=== PATIENT | female | born 1980 | race Caucasian/White ===

== ENCOUNTER 2023-05-16 06:25 | Day surgery (SDC) | payer OTHER, SELFPAY ==
[2023-05-10 14:33] VITALS: BMI 17.1
--- NOTE | 2023-05-13 07:51 | MHC.SHP ---
Pre-Procedural Eval Section A Date of Service: 05/13/23 The patient is an INPATIENT: No Changes since office visit: No Cold of Flu in the past 2 weeks, No New Medical Problems, No Changes in Medication and No Patient answered all questions The History & Physical has been completed within 30 days and I have reviewed it.: Yes Section B Chief Complaint: Age-related nuclear cataract, right eye Allergies: Allergies Allergy/AdvReac Type Severity Reaction Status Date / Time codeine [CODEINE] Allergy Intermediate Nausea and Unverified 05/10/23 14:31 Vomiting erythromycin base Allergy Intermediate Nausea and Unverified 05/10/23 14:31 [ERYTHROMYCIN BASE] Vomiting ibuprofen [From MOTRIN] Allergy Intermediate nausea and Unverified 05/10/23 14:31 vomiting, hives Plan Diagnosis/Plan: Unchanged I have reviewed the history and physical and performed a pertinent physical examination on my patient. No changes have occurred unless specified. Time Spent With Patient Time: Total time managing care of this patient today ____ minutes.
[2023-05-16] VITALS (8 sets, daily range): BP systolic 84–92; BP diastolic 32–57; PULSE 70–88; RESP 12–18; TEMP 36.7–36.9; O2SAT 96–100
[2023-05-16 06:58] LABS: UPreg QC Valid YES; Urine Pregnancy NEGATIVE (NEGATIVE)
[2023-05-16] MEDS: Tetracaine HCl/PF 0.5% Oph Sol 4 ML DROPS 1 DROP EYE-RIGHT (06:58)
[2023-05-16] MEDS: Cyclopentolate 1 % Ophth Sol 2 ML DRPBTL 1 DROP EYE-RIGHT ×3 (06:59→07:09)
[2023-05-16] MEDS: Phenylephrine HCL 2.5% Oph SoL 2 ML BOTTLE 1 DROP EYE-RIGHT ×3 (06:59→07:09)
[2023-05-16] MEDS: Tropicamide 1 % Ophth Sol 3 ML BTL 1 DROP EYE-RIGHT ×3 (06:59→07:09)
[2023-05-16] MEDS: Ketorolac Tromethamine 0.5% Op 5 ML DROPS 1 DROP EYE-RIGHT ×3 (06:59→07:09)
[2023-05-16] MEDS: Lactated Ringers 500 ML 50 ML IV (07:25)
--- NOTE | 2023-05-16 07:32 | P.CONAN_ITS ---
HPI - Anesthesia Eval Consult details Narrative: 43 yo female patient for Right cataract extraction, IOL insertion [facility] Past Medical History Medical History Asthma Cataract Dyskinesia Dystonia Hearing loss IBS (irritable bowel syndrome) Nondiabetic gastroparesis Parkinson disease Underweight Walker as ambulation aid Family History Family history of problems with anesthesia: No Surgical History Surgical History History of Hx of cholecystectomy History of Problems with Anesthesia: Yes ( Does not wake up well but could not elaborate) Social History Social History Are you a primary healthcare account manager to a significant other at home: No Do you presently have visiting nurse or other home services: 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 If so, by whom?: No Are you DNR?: No Advance Directives: No Advance Directives Information Provided: Yes Advance Directives on File: No Patient : No FDLMP: April 2023 : No Poor oral hygiene: No Meds Allergies Allergy/AdvReac Type Severity Reaction Status Date / Time codeine [CODEINE] Allergy Intermediate Nausea and Unverified 05/10/23 14:31 Vomiting erythromycin base Allergy Intermediate Nausea and Unverified 05/10/23 14:31 [ERYTHROMYCIN BASE] Vomiting ibuprofen [From MOTRIN] Allergy Intermediate nausea and Unverified 05/10/23 14:31 vomiting, hives Active Medications: Current Medications Albuterol Sulfate (Albuterol Sulfate (0.083%) 2.5 Mg/3 Ml Vial.Neb) 2.5 mg INHALE ONCE PRN PRN Reason: Shortness of Breath/Wheezing Lactated Ringer's (Lr) 500 mls @ 50 mls/hr IV .Q10H MORE Stop: 05/16/23 16:44 Last Admin: 05/16/23 07:25 Dose: 50 mls/hr Povidone Iodine (Povidone Iodine 5 % Ophth Soln 30 Ml Bottle) 1 appl EYE-RIGHT PREOP PRN PRN Reason: Pre-Op Surgical Implant Prophy Home Medications Medication Instructions Recorded Confirmed Last Taken Type albuterol sulfate 90 mcg/actuation 2 puff inhalation QID PRN 05/09/23 05/09/23 Unknown History aerosol inhaler (Ventolin HFA) Shortness Of Breath Or Wheezing carbidopa 25 mg-levodopa 100 mg 1 tab PO TID 05/09/23 05/09/23 Unknown History tablet carbidopa ER 25 mg-levodopa 100 mg 1 tab PO DAILY 05/09/23 05/09/23 Unknown Hist ory tablet,extended release cholecalciferol (vitamin D3) 1,250 1,250 mcg PO QWEEK 05/09/23 05/09/23 Unknown History mcg (50,000 unit) capsule fluticasone propionate 220 2 puff inhalation BID 05/09/23 05/09/23 Unknown History mcg/actuation HFA aerosol inhaler (Flovent HFA) polyethylene glycol 3350 17 gram 17 g PO DAILY 05/10/23 05/10/23 Unknown History oral powder packet (Miralax) Exam Exam Date and Time: May 16, 2023 0732 Height,Weight and Vital Signs: Height 4 ft 10 in Weight 37.195 kg Last Vital Signs Temp 98.1 F 05/16/23 07:11 Pulse 73 05/16/23 07:11 Resp 18 05/16/23 07:11 BP 91/57 L 05/16/23 07:11 Pulse Ox 98 05/16/23 07:11 O2 Del Method Room Air 05/16/23 07:11 Pertinent Lab Results Pertinent Lab Results: Laboratory Tests 05/16/23 06:30 Urine Test NEGATIVE Airway Mallampati Class: II TM Dist: >3cm Neck ROM: Full Loose/Missing/Broken Teeth: No (Denies broken, loose, missing teeth) Heart: RRR Lungs: CTAB. Distant Assessment and Plan Assessment Anesthesia Assessment: Anesthesia Plan Discussed and Chart Reviewed Final Anesthetic Review Family History of Problems with Anesthesia: No History of Problems with Anesthesia: Yes ( Does not wake up well but could not elaborate) NPO: Yes ASA Class: III Final Preanesthetic Review: No Changes in Pt Med Stat, Meds/Allgs Chart Reviewed, Consent Obtained/Reviewed and Anes Risks/Benef Reviewed Patient Risk: Intermediate Procedure Risk: Low Assessment/Block/Sedation in SS: Assess/Block/Sedation-SS Anesthetic Plan Anesthetic Plan: GA Disposition: Standard PACU
--- NOTE | 2023-05-16 08:02 | HO.PNOPHT ---
Ophthalmology Procedure Procedure Date of Service: 05/16/23 Ophthalmology Viscoelastic: Healon Duet Dual Pack Pro Ophthalmology Lenses: TECNIS [id number] (20.5) Procedure Notes: PREOPERATIVE DIAGNOSIS: Decreased visual acuity right eye secondary to cataract POSTOPERATIVE DIAGNOSIS: Same PROCEDURE: Right cataract extraction with intraocular lens insertion SURGEON: Shreyas Barnes M.D. ANESTHESIA: Topical/MAC ESTIMATED BLOOD LOSS: None COMPLICATIONS: None After obtaining informed consent, the patient was brought to the operating room suite and placed in the supine position. After adequate sedation per anesthesia, topical drops of Tetracaine were given to the right eye. The eye was then prepped and draped in the usual sterile fashion. The operating room microscope was then positioned over the operative eye and a lid speculum placed. A paracentesis was created. Viscoelastic was then instilled into the anterior chamber. A three plane incision was then created temporally, utilizing a 2.85 mm keratome. Capsulotomy forceps were then utilized to create a circular tear capsulotomy. Hydrodissection and hydrodelineation were carried out until adequate mobilization of the nucleus occurred. Phacoemulsification was then utilized to remove the dense central nucleus followed by removal of the cortical material utilizing the automated aspiration irrigation unit. Viscoelastic was instilled into the posterior capsular bag followed by placement of a posterior chamber intraocular lens without difficulty. The residual Viscoelastic was then removed utilizing the automated IA machine. The wound was checked and found to be watertight. The patient tolerated the procedure well and the lid speculum was removed. Intracameral injection of Vigamox 0.1 mL followed by a subtenon injection of Kenalog-40 0.2 mL were administered. The patient will be seen in the a.m.
== END 2023-05-16 10:07 | disposition home or self-care (01) ==
PROVIDERS: Anesthesiology; PCP Nurse Practitioner Family; Visit Provider Ophthalmology
PROC: (CPT 66985; principal; 2023-05-16 08:00)
DX: H25.11 Age-related nuclear cataract, right eye (principal); H52.4 Presbyopia; H50.52 Exophoria; H52.13 Myopia, bilateral; Z97.3 Presence of spectacles and contact lenses; G20 Parkinson's disease; K31.84 Gastroparesis; I95.9 Hypotension, unspecified; J45.909 Unspecified asthma, uncomplicated; Z79.51 Long term (current) use of inhaled steroids; Z79.899 Other long term (current) drug therapy; Z88.1 Allergy status to other antibiotic agents; Z88.8 Allergy status to other drugs, medicaments and biological substances; H51.11 Convergence insufficiency
CPT/HCPCS: 66984; 81025; J2250; J3010; J3301; V2632

== ENCOUNTER 2023-05-30 06:34 | Day surgery (SDC) | payer OTHER, SELFPAY ==
[2023-05-10 14:37] VITALS: BMI 17.1
--- NOTE | 2023-05-20 08:12 | HO.PNOPHT ---
Ophthalmology Procedure Procedure Date of Service: 05/30/23 Ophthalmology Viscoelastic: Healcamilo Duet Dual Pack Pro Ophthalmology Lenses: TECNIS [id number] (19.5) Procedure Notes: PREOPERATIVE DIAGNOSIS: Decreased visual acuity left eye secondary to cataract POSTOPERATIVE DIAGNOSIS: Same PROCEDURE: Left cataract extraction with intraocular lens insertion SURGEON: Shreyas Barnes M.D. ANESTHESIA: Topical/MAC ESTIMATED BLOOD LOSS: None COMPLICATIONS: None After obtaining informed consent, the patient was brought to the operation room suite and placed in the supine position. After adequate sedation per anesthesia, topical drops of Tetracaine were given to the left eye. The eye was then prepped and draped in the usual sterile fashion. The operating room microscope was then positioned over the operative eye and a lid speculum placed. A paracentesis was created. Viscoelastic was then instilled into the anterior chamber. A three plane incision was then created temporally, utilizing a 2.85 mm keratome. Capsulotomy forceps were then utilized to create a circular tear capsulotomy. Hydrodissection and hydrodelineation were carried out until adequate mobilization of the nucleus occurred. Phacoemulsification was then utilized to remove the dense central nucleus followed by removal of the cortical material utilizing the automated aspiration irrigation unit. Viscoat elastic was instilled into the posterior capsular bag followed by placement of a posterior chamber intraocular lens without difficulty. The residual Viscoat elastic was then removed utilizing the automated IA machine. The wound was check and found to be watertight. The patient tolerated the procedure well and the lid speculum was removed. Intracameral injection of Vigamox 0.1 mL followed by a subtenon injection of Kenalog-40 0.2 mL were administered. The patient will be seen in the a.m.
--- NOTE | 2023-05-20 08:12 | MHC.SHP ---
Pre-Procedural Eval Section A Date of Service: 05/20/23 The patient is an INPATIENT: No Changes since office visit: No Cold of Flu in the past 2 weeks, No New Medical Problems, No Changes in Medication and No Patient answered all questions The History & Physical has been completed within 30 days and I have reviewed it.: Yes Section B Chief Complaint: Age-related nuclear cataract, left eye Allergies: Allergies Allergy/AdvReac Type Severity Reaction Status Date / Time codeine [CODEINE] Allergy Intermediate Nausea and Unverified 05/10/23 14:31 Vomiting erythromycin base Allergy Intermediate Nausea and Unverified 05/10/23 14:31 [ERYTHROMYCIN BASE] Vomiting ibuprofen [From MOTRIN] Allergy Intermediate nausea and Unverified 05/10/23 14:31 vomiting, hives Plan I have reviewed the history and physical and performed a pertinent physical examination on my patient. No changes have occurred unless specified. Time Spent With Patient Time: Total time managing care of this patient today ____ minutes.
--- NOTE | 2023-05-26 12:17 | HO.ANESPROP2 ---
Documented by User: Nancy Alan NP 05/26/23 12:17 HPI - Anesthesia Eval Consult details Narrative: 43yo F for Left Cataract Extraction IOL Insertion s/p right eye 05/16/23 with TIVA: Fent 50, Midaz 1 PMFSH Past Medical History Medical History Asthma Cataract Dyskinesia Dystonia Hearing loss IBS (irritable bowel syndrome) Nondiabetic gastroparesis Parkinson disease Underweight Walker as ambulation aid Family History Family history of problems with anesthesia: No Surgical History Surgical History History of Hx of cholecystectomy Hx of tubal ligation History of Problems with Anesthesia: Yes ( Does not wake up well but could not elaborate) Social History Social History Are you a primary career services director to a significant other at home: No Do you presently have visiting nurse or other home 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 If so, by whom?: No Are you DNR?: No Advance Directives: No Advance Directives Information Provided: Yes Advance Directives on File: No Patient : No FDLMP: April 2023 : No Poor oral hygiene: No Meds Allergies Allergy/AdvReac Type Severity Reaction Status Date / Time codeine [CODEINE] Allergy Intermediate Nausea and Unverified 05/10/23 14:31 Vomiting erythromycin base Allergy Intermediate Nausea and Unverified 05/10/23 14:31 [ERYTHROMYCIN BASE] Vomiting ibuprofen [From MOTRIN] Allergy Intermediate nausea and Unverified 05/10/23 14:31 vomiting, hives Home Medications Medication Instructions Recorded Confirmed Last Taken Type albuterol sulfate 90 mcg/actuation 2 puff inhalation QID PRN 05/09/23 05/30/23 Unknown History aerosol inhaler (Ventolin HFA) Shortness Of Breath Or Wheezing carbidopa 25 mg-levodopa 100 mg 1 tab PO TID 05/09/23 05/30/23 Unknown History tablet carbidopa ER 25 mg-levodopa 100 mg 1 tab PO DAILY 05/09/23 05/30/23 Unknown History tablet,extended release cholecalciferol (vitamin D3) 1,250 1,250 mcg PO QWEEK 05/09/23 05/30/23 Unknown History mcg (50,000 unit) capsule fluticasone propionate 220 2 puff inhalation BID 05/09/23 05/30/23 Unknown History mcg/actuation HFA aerosol inhaler (Flovent HFA) polyethylene glycol 3350 17 gram 17 g PO DAILY 05/10/23 05/30/23 Unknown History oral powder packet (Miralax) Exam Exam Date and Time: May 26, 2023 1217 Height,Weight and Vital Signs: Height 4 ft 10 in Weight 37.195 kg Assessment and Plan Assessment Anesthesia Assessment: Chart Reviewed Final Anesthetic Review Family History of Problems with Anesthesia: No History of Problems with Anesthesia: Yes ( Does not wake up well but could not elaborate) Documented by User: Ana Maria Sharpe MD 05/30/23 08:02 [facility] Past Medical History Medical History Asthma Cataract Dyskinesia Dystonia Hearing loss IBS (irritable bowel syndrome) Nondiabetic gastroparesis Parkinson disease Underweight Walker as ambulation aid Surgical History Surgical History History of Hx of cholecystectomy Hx of tubal ligation Social History Social History Are you a primary career services director to a significant other at home: No Do you presently have visiting nurse or other home 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 If so, by whom?: No Are you DNR?: No Advance Directives: No Advance Directives Information Provided: Yes Advance Directives on File: No Patient : No FDLMP: April 2023 : No Poor oral hygiene: No Meds Allergies Allergy/AdvReac Type Severity Reaction Status Date / Time codeine [CODEINE] Allergy Intermediate Nausea and Unverified 05/10/23 14:31 Vomiting erythromycin base Allergy Intermediate Nausea and Unverified 05/10/23 14:31 [ERYTHROMYCIN BASE] Vomiting ibuprofen [From MOTRIN] Allergy Intermediate nausea and Unverified 05/10/23 14:31 vomiting, hives Home Medications Medication Instructions Recorded Confirmed Last Taken Type albuterol sulfate 90 mcg/actuation 2 puff inhalation QID PRN 05/09/23 05/30/23 Unknown History aerosol inhaler (Ventolin HFA) Shortness Of Breath Or Wheezing carbidopa 25 mg-levodopa 100 mg 1 tab PO TID 05/09/23 05/30/23 Unknown History tablet carbidopa ER 25 mg-levodopa 100 mg 1 tab PO DAILY 05/09/23 05/30/23 Unknown History tablet,extended release cholecalciferol (vitamin D3) 1,250 1,250 mcg PO QWEEK 05/09/23 05/30/23 Unknown History mcg (50,000 unit) capsule fluticasone propionate 220 2 puff inhalation BID 05/09/23 05/30/23 Unknown History mcg/actuation HFA aerosol inhaler (Flovent HFA) polyethylene glycol 3350 17 gram 17 g PO DAILY 05/10/23 05/30/23 Unknown History oral powder packet (Miralax) Exam Airway Mallampati Class: II TM Dist: >3cm Neck ROM: Limited Loose/Missing/Broken Teeth: No Heart: RRR Lungs: CTA Assessment and Plan Assessment Anesthesia Assessment: Anesthesia Plan Discussed Final Anesthetic Review NPO: Yes ASA Class: III Final Preanesthetic Review: Meds/Allgs Chart Reviewed, Consent Obtained/Reviewed and Anes Risks/Benef Reviewed Patient Risk: Intermediate Procedure Risk: Low Anesthetic Plan Anesthetic Plan: MAC: Disposition: Standard PACU
[2023-05-30 06:50] VITALS: BP 94/56; PULSE 75; RESP 18; TEMP 36.4; O2SAT 100; BMI 17.6
[2023-05-30] MEDS: Tetracaine HCl/PF 0.5% Oph Sol 4 ML DROPS 1 DROP EYE-LEFT (07:12)
[2023-05-30] MEDS: Lactated Ringers 500 ML 50 ML IV (07:12)
[2023-05-30] MEDS: Cyclopentolate 1 % Ophth Sol 2 ML DRPBTL 1 DROP EYE-LEFT ×3 (07:13→07:23)
[2023-05-30] MEDS: Phenylephrine HCL 2.5% Oph SoL 2 ML BOTTLE 1 DROP EYE-LEFT ×3 (07:13→07:23)
[2023-05-30] MEDS: Ketorolac Tromethamine 0.5% Op 5 ML DROPS 1 DROP EYE-LEFT ×3 (07:13→07:21)
[2023-05-30] MEDS: Tropicamide 1 % Ophth Sol 3 ML BTL 1 DROP EYE-LEFT ×3 (07:14→07:24)
[2023-05-30 09:18] VITALS: BP 124/45; PULSE 92; RESP 18; TEMP 36.6; O2SAT 99
== END 2023-05-30 09:19 | disposition home or self-care (01) ==
PROVIDERS: PCP Nurse Practitioner Family; Visit Provider Ophthalmology
PROC: (CPT 66985; principal; 2023-05-30 09:30)
DX: H25.12 Age-related nuclear cataract, left eye (principal); H52.4 Presbyopia; H50.52 Exophoria; H52.13 Myopia, bilateral; H51.11 Convergence insufficiency; G20 Parkinson's disease; I95.9 Hypotension, unspecified; K31.84 Gastroparesis; J45.20 Mild intermittent asthma, uncomplicated; Z79.51 Long term (current) use of inhaled steroids; Z79.899 Other long term (current) drug therapy; Z88.1 Allergy status to other antibiotic agents; Z88.8 Allergy status to other drugs, medicaments and biological substances
CPT/HCPCS: 66984; J3010; J3301; V2632

== ENCOUNTER 2023-08-22 15:16 | Emergency (ER) | payer OTHER, SELFPAY ==
--- NOTE | ~2023-08-22 | CT_ITS ---
EXAMINATION: CT FACIAL BONES WITHOUT CONTRAST CLINICAL INFORMATION: Fall. Pain. COMPARISON: None available. TECHNIQUE: Axial images through the facial bones without IV contrast. Sagittal and coronal reconstructions on the technologist workstation were performed. This CT examination was performed using dose optimization techniques as appropriate, variously including the following: *Automated exposure control *Adjustment of mA and/or kV according to patient size (this includes techniques or standardized protocols for targeted exams where dose is matched to indication/reason for exam; i.e. extremities or head) *Use of iterative reconstruction technique DLP: 212 mGy-cm FINDINGS: There are bilateral nondisplaced nasal bone fractures. There is no associated soft tissue swelling and these may not be acute. Clinical correlation recommended. No other fracture. Visualized paranasal sinuses, mastoid air cells and middle ears are clear. The temporomandibular joints are normal. The orbits are normal. Soft tissues are normal. CT/CT facial bones wo IV con IMPRESSION: Bilateral nondisplaced nasal bone fractures, question age.
--- NOTE | ~2023-08-22 | XR_ITS ---
EXAMINATION: XR HIP, LEFT CLINICAL INFORMATION: Pain after fall COMPARISON: None available. TECHNIQUE: Two views of the left hip. FINDINGS: Visualized portion of proximal left femur demonstrate no fracture. Left femoral head is well-seated within the acetabulum. Left femoral acetabular joint space is well-maintained. Pelvic ring is intact. Right hip is grossly unremarkable. Small pelvic calcifications are likely vascular in nature. XR/XR hip LT w PEL1V IMPRESSION: No fracture, dislocation or significant degenerative changes of the left hip.
--- NOTE | ~2023-08-22 | CT_ITS ---
EXAMINATION: CT CERVICAL SPINE WITHOUT CONTRAST CLINICAL INFORMATION: Fall. Pain. COMPARISON: None available. TECHNIQUE: Axial images through the cervical spine without contrast. Sagittal and coronal reconstructions on the technologist workstation were performed. This CT examination was performed using dose optimization techniques as appropriate, variously including the following: *Automated exposure control *Adjustment of mA and/or kV according to patient size (this includes techniques or standardized protocols for targeted exams where dose is matched to indication/reason for exam; i.e. extremities or head) *Use of iterative reconstruction technique DLP: 190 mGy-cm FINDINGS: There is curvature of the lower cervical and upper thoracic spine to the right. Bone alignment is otherwise normal. No fracture or dislocation. Mild degenerative spondylosis and degenerative disc disease at C4-C5 and C5-C6. Prevertebral soft tissues are normal. Visualized lung apices are clear. CT/CT cervical spine wo IV con IMPRESSION: Mild degenerative changes. No fracture or dislocation Fleischner guidelines were followed.
--- NOTE | ~2023-08-22 | CT_ITS ---
EXAMINATION: CT HEAD WITHOUT CONTRAST CLINICAL INFORMATION: Fall. Pain. COMPARISON: None available. TECHNIQUE: Contiguous axial imaging was performed from the skull base to vertex without intravenous administration of contrast. This CT examination was performed using dose optimization techniques as appropriate, variously including the following: *Automated exposure control *Adjustment of mA and/or kV according to patient size (this includes techniques or standardized protocols for targeted exams where dose is matched to indication/reason for exam; i.e. extremities or head) *Use of iterative reconstruction technique DLP: 609 mGy-cm FINDINGS: There is no evidence of an extra-axial collection. There is no evidence of intra-axial or extra-axial hemorrhage. The ventricles and extra-axial CSF spaces are appropriate. Sanchez-white matter differentiation is normal. No mass, mass effect or infarct. There are bilateral deep brain leads entering via both frontal lobes with tips projecting near the bilateral thalamus. No skull fracture. Visualized paranasal sinuses, mastoid air cells and middle ear are clear.. CT/CT head/brain wo IV con IMPRESSION: No acute intracranial pathology.
--- NOTE | 2023-08-22 15:22 | ED.GENADULT ---
HPI - General Adult General Chief complaint: Head Injury Stated complaint: hit head last night , sent by Time Seen by Provider: 08/22/23 16:58 Source: patient and family Mode of arrival: ambulatory Limitations: no limitations History of Present Illness HPI narrative: 43 yo female with history of PD here with complaints of facial laceration, left hip contusion after a fall which occurred last evening. Patient reports she thinks she tripped and fell hitting her left face and landing on her left hip. Denies LOC. Tetanus UTD. No neck pain, headache, back pain, chest pain, vomiting, vision changes Patient is ambulatory Related Data Home Medications Medication Instructions Recorded Confirmed albuterol sulfate 90 mcg/actuation 2 puff inhalation QID PRN 05/09/23 05/30/23 aerosol inhaler (Ventolin HFA) Shortness Of Breath Or Wheezing carbidopa 25 mg-levodopa 100 mg 1 tab PO TID 05/09/23 05/30/23 tablet carbidopa ER 25 mg-levodopa 100 mg 1 tab PO DAILY 05/09/23 05/30/23 tablet,extended release cholecalciferol (vitamin D3) 1,250 1,250 mcg PO QWEEK 05/09/23 05/30/23 mcg (50,000 unit) capsule fluticasone propionate 220 2 puff inhalation BID 05/09/23 05/30/23 mcg/actuation HFA aerosol inhaler (Flovent HFA) polyethylene glycol 3350 17 gram 17 g PO DAILY 05/10/23 05/30/23 oral powder packet (Miralax) Allergies Allergy/AdvReac Type Severity Reaction Status Date / Time codeine [CODEINE] Allergy Intermediate Nausea and Unverified 05/10/23 14:31 Vomiting erythromycin base Allergy Intermediate Nausea and Unverified 05/10/23 14:31 [ERYTHROMYCIN BASE] Vomiting ibuprofen [From MOTRIN] Allergy Intermediate nausea and Unverified 05/10/23 14:31 vomiting, hives Review of Systems Review of Systems: Yes all other systems are reviewed and are negative Constitutional: Constitutional: Reports no additional constitutional complaints, Denies body ache(s), Denies chills, Denies fever(s), Denies headache(s) and Denies weakness Eyes: Eyes: Reports no additional eye complaints and Denies change in vision ENT: Reports system reviewed and no additional complaints, except as documented, Denies dizziness, Denies headache(s), Denies nasal congestion, Denies nasal discharge and Denies neck pain Cardiovascular: Cardiovascular: Reports no additional cardiovascular complaints, Denies chest pain, Denies leg edema and Denies dyspnea Respiratory: Respiratory: Reports no additional respiratory complaints, Denies cough and Denies dyspnea Gastrointestinal: Gastrointestinal: Reports no additional gastrointestinal complaints, Denies abdominal pain, Denies diarrhea, Denies nausea and Denies vomiting Genitourinary: Genitourinary: Reports no additional female genitourinary complaints and Denies urinary incontinence Musculoskeletal: Musculoskeletal: Reports no additional musculoskeletal complaints, Denies back pain, Reports arthralgias, Denies joint swelling, Denies neck pain, Denies numbness and Denies tingling Integumentary/Breasts: Skin/Breast: Reports system reviewed and no additional complaints, except as docu, Denies rash and Reports wounds Neurologic: Reports system reviewed and no additional complaints, except as documented, Denies Abnormal speech present, Denies dizziness, Denies headache(s), Denies numbness, Denies tingling and Denies weakness PMFSH Past Medical History Attestation statement: The following information was validated with the patient. 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 3 cm lac-edges approximated Ears: hearing grossly normal bilaterally and TM's normal bilaterally General nose exam: Normal external nose present Face and sinus: Yes normal facial exam Mouth: Normal oral and palatal mucosa present Throat: Yes posterior oropharynx normal Eyes General: appearance normal, both eyes and all related structures Pupils: Equal, round and reactive pupils present Neck Other: no cervical midline tenderness or step offs Neck: Yes normal visual inspection and Yes full ROM Chest Chest palpation & inspection: normal inspection of the chest Resp Effort & Inspection: normal respiratory effort Auscultation: clear to auscultation bilaterally Cardio Rate: regular rate Rhythm: regular rhythm Peripheral pulses: Peripheral pulses 2+ throughout GI Inspection: Yes normal to inspection Palpation (GI): Soft to palpation and nontender Auscultation: normal bowel sounds Back/Spine/Pelvis Thoracic/Lumbar Spine: thoracic and lumbar spine normal to inspection Skin General skin exam: no rashes or lesions noted Neuro Other: abnormal gait-at baseline per patient and family General: patient oriented x3, moves all extremities and normal sensation to monofilament Cranial nerves: Yes Equal, round and reactive pupils present Cognition (Neuro): normal cognition Speech: No Abnormal speech present Motor exam (neuro): 5/5 motor strength present throughout Sensory Exam: Normal double simultaneous stimulation for sensation Extrem Other: Mild tenderness over left lateral hip-no ecchymosis or deformity Full active/passive ROM General: Yes normal to inspection Course Course Course Narrative: RME performed by Eloisa Freeman PA-C. Patient is a 43 year old assigned female at presenting to the emergency department with facial pain after falling last night. Imaging ordered. Patient placed back in the waiting room pending room availability and results. Reevaluation(s) Reevaluation #1: CT facial bone shows nondisplaced nasal fractures. Reported this to patient she tells me it is not a new finding and from previous fall. Head CT head and cervical spine are negative. X-ray of the hip is unremarkable. Wound was cleansed and closed with skin glue and steri strips. Reviewed worrisome signs and symptoms of when to return to the emergency room. Comfortable plan for discharge home Procedures Laceration Laceration 1: Site: face Side (If applicable): left Size (cm): 3 Description: linear Depth: simple, single layer Pre-repair: wound explored and irrigated extensively Skin layer closed with: other (skin glue/steri strips) Medical Decision Making Medical Decision Making MDM Narrative: 43 yo female with history of PD here with complaints of facial laceration, left hip contusion after a fall which occurred last evening. Patient reports she thinks she tripped and fell hitting her left face and landing on her left hip. Denies LOC. Tetanus UTD. No neck pain, headache, back pain, chest pain, vomiting, vision changes Patient is ambulatory at baseline Left racoon eye with laceration. Neuro at baseline Mild tenderness over left lateral hip-no ecchymosis or deformity Full active/passive ROM Will review CT head/cervical spine/facial bones, hip x-ray from triage Differential Diagnosis Differential Diagnoses: The differential diagnosis associated with the presentation includes contusion, fracture ICH, cervical fx, facial fracture Admission/Observation Consideration of admission/observation: Escalation of care including admission/observation considered No fracture seen on x-ray to require urgent orthopedic consultation/admission, no facial fractures/ICH requiring emergent OMF or trauma services and transfer to [facility] Independent Interpretation I performed an independent interpretation of an: Plain X-Ray and CT Scan Interpretation: I independently reviewed the x-ray and CT scan and agree with the rad report Radiology Impression Discussion of test interpretation with radiology: I have reviewed the radiologist's reading. Radiologist Impression: [address] [address] XRay Report Signed Patient: Deja Sharma MR#: [id number] : 1980 Acct:[id number] Age/Sex: 43 / F ADM Date: 08/22/23 Loc: HO.ED Attending Dr: Ordering Physician: Eloisa Freeman Date of Service: 08/22/23 Procedure(s): XR hip LT w PEL1V Accession Number(s): [id number] cc: Eloisa Freeman; Physician,Unknown ~ EXAMINATION: XR HIP, LEFT CLINICAL INFORMATION: Pain after fall COMPARISON: None available. TECHNIQUE: Two views of the left hip. FINDINGS: Visualized portion of proximal left femur demonstrate no fracture. Left femoral head is well-seated within the acetabulum. Left femoral acetabular joint space is well-maintained. Pelvic ring is intact. Right hip is grossly unremarkable. Small pelvic calcifications are likely vascular in nature. XR/XR hip LT w PEL1V IMPRESSION: No fracture, dislocation or significant degenerative changes of the left hip. [address] [address] [address] Scan Report Signed Patient: Deja Sharma MR#: [id number] : 1980 Acct:[id number] Age/Sex: 43 / F ADM Date: 08/22/23 Loc: HO.ED Attending Dr: Ordering Physician: Eloisa Freeman Date of Service: 08/22/23 Procedure(s): CT head/brain wo IV con Accession Number(s): [id number] cc: Eloisa Freeman; Physician,Unknown ~ EXAMINATION: CT HEAD WITHOUT CONTRAST CLINICAL INFORMATION: Fall. Pain. COMPARISON: None available. TECHNIQUE: Contiguous axial imaging was performed from the skull base to vertex without intravenous administration of contrast. This CT examination was performed using dose optimization techniques as appropriate, variously including the following: *Automated exposure control *Adjustment of mA and/or kV according to patient size (this includes techniques or standardized protocols for targeted exams where dose is matched to indication/reason for exam; i.e. extremities or head) *Use of iterative reconstruction technique DLP: 609 mGy-cm FINDINGS: There is no evidence of an extra-axial collection. There is no evidence of intra-axial or extra-axial hemorrhage. The ventricles and extra-axial CSF spaces are appropriate. Sanchez-white matter differentiation is normal. No mass, mass effect or infarct. There are bilateral deep brain leads entering via both frontal lobes with tips projecting near the bilateral thalamus. No skull fracture. Visualized paranasal sinuses, mastoid air cells and middle ear are clear.. CT/CT head/brain wo IV con IMPRESSION: No acute intracranial pathology. [address] [address] [address] Scan Report Signed Patient: Deja Sharma MR#: [id number] : 1980 Acct:[id number] Age/Sex: 43 / F ADM Date: 08/22/23 Loc: HO.ED Attending Dr: Ordering Physician: Eloisa Freeman Date of Service: 08/22/23 Procedure(s): CT facial bones wo IV con Accession Number(s): [id number] cc: Eloisa Freeman; Physician,Unknown ~ EXAMINATION: CT FACIAL BONES WITHOUT CONTRAST CLINICAL INFORMATION: Fall. Pain. COMPARISON: None available. TECHNIQUE: Axial images through the facial bones without IV contrast. Sagittal and coronal reconstructions on the technologist workstation were performed. This CT examination was performed using dose optimization techniques as appropriate, variously including the following: *Automated exposure control *Adjustment of mA and/or kV according to patient size (this includes techniques or standardized protocols for targeted exams where dose is matched to indication/reason for exam; i.e. extremities or head) *Use of iterative reconstruction technique DLP: 212 mGy-cm FINDINGS: There are bilateral nondisplaced nasal bone fractures. There is no associated soft tissue swelling and these may not be acute. Clinical correlation recommended. No other fracture. Visualized paranasal sinuses, mastoid air cells and middle ears are clear. The temporomandibular joints are normal. The orbits are normal. Soft tissues are normal. CT/CT facial bones wo IV con IMPRESSION: Bilateral nondisplaced nasal bone fractures, question age. [place] [address] CT Scan Report Signed Patient: Deja Sharma MR#: [id number] : 1980 Acct:[id number] Age/Sex: 43 / F ADM Date: 08/22/23 Loc: HO.ED Attending Dr: Ordering Physician: Eloisa Freeman Date of Service: 08/22/23 Procedure(s): CT cervical spine wo IV con Accession Number(s): [id number] cc: Eloisa Freeman; Physician,Unknown ~ EXAMINATION: CT CERVICAL SPINE WITHOUT CONTRAST CLINICAL INFORMATION: Fall. Pain. COMPARISON: None available. TECHNIQUE: Axial images through the cervical spine without contrast. Sagittal and coronal reconstructions on the technologist workstation were performed. This CT examination was performed using dose optimization techniques as appropriate, variously including the following: *Automated exposure control *Adjustment of mA and/or kV according to patient size (this includes techniques or standardized protocols for targeted exams where dose is matched to indication/reason for exam; i.e. extremities or head) *Use of iterative reconstruction technique DLP: 190 mGy-cm FINDINGS: There is curvature of the lower cervical and upper thoracic spine to the right. Bone alignment is otherwise normal. No fracture or dislocation. Mild degenerative spondylosis and degenerative disc disease at C4-C5 and C5-C6. Prevertebral soft tissues are normal. Visualized lung apices are clear. CT/CT cervical spine wo IV con IMPRESSION: Mild degenerative changes. No fracture or dislocation Fleischner guidelines were followed. Independent Historian Clinical information obtained from an independent historian. History obtained from or confirmed by: Spouse Prescription Management I considered prescription management with: Antibiotic Discharge Plan Discharge Clinical Impression: Laceration of face, Contusion of hip Patient Disposition: Home, Self-Care Instructions: Laceration (ED), Steristrips (ED), Hip Contusion (ED) Prescriptions: No Action carbidopa-levodopa 25-100 mg tablet extended release 1 tab PO DAILY fluticasone propionate [Flovent HFA] 220 mcg/actuation HFA aerosol inhaler 2 puff inhalation BID albuterol sulfate [Ventolin HFA] 90 mcg/actuation HFA aerosol inhaler 2 puff inhalation QID PRN (Reason: Shortness Of Breath Or Wheezing) carbidopa-levodopa 25-100 mg tablet 1 tab PO TID cholecalciferol (vitamin D3) 1,250 mcg (50,000 unit) capsule 1,250 mcg PO QWEEK polyethylene glycol 3350 [Miralax] 17 gram Powder In Packet 17 g PO DAILY Referrals: Physician,Unknown J [Physician] - 5 days
[2023-08-22 15:24] VITALS: BP 111/63; PULSE 82; RESP 16; TEMP 36.4; O2SAT 100; BMI 17.1
== END 2023-08-22 18:43 | disposition home or self-care (01) ==
PROVIDERS: Emergency Provider Emergency Medicine Emergency Medical Services; PCP Nurse Practitioner Family
DX: S01.112A Laceration without foreign body of left eyelid and periocular area, initial encounter (principal); S02.2XXA Fracture of nasal bones, initial encounter for closed fracture; S70.02XA Contusion of left hip, initial encounter; W19.XXXA Unspecified fall, initial encounter; Y93.9 Activity, unspecified; Y92.9 Unspecified place or not applicable; Y99.9 Unspecified external cause status; G20.A1 Parkinson's disease without dyskinesia, without mention of fluctuations
CPT/HCPCS: 12013; 70450; 70486; 72125; 73502; 99282; 99284; 99285

== ENCOUNTER 2023-12-05 19:40 | Emergency (ER) | payer OTHER, SELFPAY ==
--- NOTE | ~2023-12-05 | CT_ITS ---
EXAMINATION: CT cervical spine wo IV con, CT head/brain wo IV con, CT facial bones wo IV con CLINICAL INFORMATION: Reason for Exam fall +HS COMPARISON: CT head, face, and cervical spine 08/22/2023 TECHNIQUE: Contiguous axial imaging was performed from the skull base to vertex without intravenous contrast. Sagittal and coronal reformatted images were obtained. Helical noncontrast CT imaging was acquired through the facial bones and source images were reviewed along with axial reconstructions and sagittal and coronal MPRs. CT images of the cervical spine were acquired without intravenous contrast. This CT examination was performed using dose optimization techniques as appropriate, variously including the following: * Automated exposure control * Adjustment of mA and/or kV according to patient size (this includes techniques or standardized protocols for targeted exams where dose is matched to indication/reason for exam; i.e. extremities or head) Use of iterative reconstruction technique DLP: 1033 mGy-cm FINDINGS: CT HEAD: Right frontal deep brain stimulator lead is stable in position terminating in the region of the right subthalamic nucleus. Interval removal of left frontal deep brain stimulator with tract in the left frontal lobe. Associated luis hole is noted. There is no evidence of acute intracranial hemorrhage. No mass-effect or ventricular shift is noted. No acute, territorial loss of abel-white differentiation. The ventricles and sulci are appropriate in size and configuration for the patient's stated age. No depressed calvarial fracture. CT MAXILLOFACIAL: There is a laceration overlying the anterior left zygoma/left lateral orbit. No underlying depressed fracture. The globes are intact. Bilateral intraocular lens replacements. The pterygoid plates and zygomatic arches are intact. The mandible is intact and both temporomandibular joints are located. The paranasal sinuses and mastoid air cells are well-developed and aerated. There are no air-fluid levels identified in the sinuses. CT CERVICAL SPINE: Levocurvature of the cervical spine and reversal of the normal cervical lordosis which may be positional. Cervical vertebral body heights are maintained. No significant spondylolisthesis. No significant prevertebral soft tissue swelling Partially visualized deep brain stimulator lead along the right soft tissues. Visualized lung apices are clear. CT/CT cervical spine wo IV con IMPRESSION: Skin laceration overlying the left anterior zygoma/left lateral orbit. No underlying depressed fracture. No acute intracranial hemorrhage. No acute, displaced cervical spine fracture.
[2023-12-05 20:11] VITALS: BP 101/55; PULSE 81; RESP 18; TEMP 36.7; O2SAT 98; BMI 17.8
--- NOTE | 2023-12-05 20:11 | ED.FALL ---
HPI - Fall General Chief Complaint: Fall Stated Complaint: fell hit head,facial lacerations Time Seen by Provider: 12/06/23 02:07 Related Data Home Medications Medication Instructions Recorded Confirmed albuterol sulfate 90 mcg/actuation 2 puff inhalation QID PRN 05/09/23 05/30/23 aerosol inhaler (Ventolin HFA) Shortness Of Breath Or Wheezing carbidopa 25 mg-levodopa 100 mg 1 tab PO TID 05/09/23 05/30/23 tablet carbidopa ER 25 mg-levodopa 100 mg 1 tab PO DAILY 05/09/23 05/30/23 tablet,extended release cholecalciferol (vitamin D3) 1,250 1,250 mcg PO QWEEK 05/09/23 05/30/23 mcg (50,000 unit) capsule fluticasone propionate 220 2 puff inhalation BID 05/09/23 05/30/23 mcg/actuation HFA aerosol inhaler (Flovent HFA) polyethylene glycol 3350 17 gram 17 g PO DAILY 05/10/23 05/30/23 oral powder packet (Miralax) Allergies Allergy/AdvReac Type Severity Reaction Status Date / Time codeine [CODEINE] Allergy Intermediate Nausea and Verified 12/05/23 20:11 Vomiting erythromycin base Allergy Intermediate Nausea and Verified 12/05/23 20:11 [ERYTHROMYCIN BASE] Vomiting ibuprofen [From MOTRIN] Allergy Intermediate nausea and Verified 12/05/23 20:11 vomiting, hives PMFSH Past Medical History Medical History Walker as ambulation aid Cataract Dyskinesia Dystonia Underweight Parkinson disease Nondiabetic gastroparesis IBS (irritable bowel syndrome) Hearing loss Asthma Surgical History Hx of tubal ligation History of Hx of cholecystectomy Social History Social History Are you a primary director of managed care to a significant other at home: No Do you presently have visiting nurse 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 admits to losing her balance causing her to fall and hit head on portable heater. no loc. no thinners. 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 denies preceding symptoms of dizziness, nausea, chest pain, palpitations. 2cm laceration to left cheek will require repair. EOMs intact without entrapment or pain. PERRL. No midline spinous tenderness or step off deformity. imaging ordered. Full HPI, ROS and PE to be performed by the primary ED provider. Medications Administered Discontinued Medications Generic Name Dose Route Start Last Admin Trade Name Freq PRN Reason Stop Dose Admin Lidocaine HCl 4 ml 12/06/23 02:36 12/06/23 04:20 Lidocaine Hcl 1 % Mpf 2 Ml Vial INFILTRATI 12/06/23 02:37 4 ml ONCE ONE Administration Discharge Plan Discharge Clinical Impression: Face lacerations Patient Disposition: Home, Self-Care Instructions: Laceration (ED) Additional Instructions: Local care as adv Suture removal in 10 days Prescriptions: No Action carbidopa-levodopa 25-100 mg tablet extended release 1 tab PO DAILY fluticasone propionate [Flovent HFA] 220 mcg/actuation HFA aerosol inhaler 2 puff inhalation BID albuterol sulfate [Ventolin HFA] 90 mcg/actuation HFA aerosol inhaler 2 puff inhalation QID PRN (Reason: Shortness Of Breath Or Wheezing) carbidopa-levodopa 25-100 mg tablet 1 tab PO TID cholecalciferol (vitamin D3) 1,250 mcg (50,000 unit) capsule 1,250 mcg PO QWEEK polyethylene glycol 3350 [Miralax] 17 gram Powder In Packet 17 g PO DAILY Interventions: ED Discharge Assessment Last Done: 12/06/23 04:20 Discharge Date/Time: 12/06/23 04:21
[2023-12-06 00:14] VITALS: BP 97/55; PULSE 74; RESP 16; TEMP 36.9; O2SAT 98
[2023-12-06 01:34] VITALS: BP 98/53; PULSE 66; RESP 18; TEMP 36.6; O2SAT 99
--- NOTE | 2023-12-06 02:36 | ED.FALL ---
HPI - Fall General Chief Complaint: Fall Stated Complaint: fell hit head,facial lacerations Time Seen by Provider: 12/06/23 02:07 Source: patient Mode of arrival: ambulatory Limitations: no limitations History of Present Illness HPI Narrative: Patient lost balance while walking fell and hitting left side of the face to the portable heater at 16:30 no loss of consciousness no other injuries came with laceration at the left cheek bone no other injury Related Data Home Medications Medication Instructions Recorded Confirmed albuterol sulfate 90 mcg/actuation 2 puff inhalation QID PRN 05/09/23 05/30/23 aerosol inhaler (Ventolin HFA) Shortness Of Breath Or Wheezing carbidopa 25 mg-levodopa 100 mg 1 tab PO TID 05/09/23 05/30/23 tablet carbidopa ER 25 mg-levodopa 100 mg 1 tab PO DAILY 05/09/23 05/30/23 tablet,extended release cholecalciferol (vitamin D3) 1,250 1,250 mcg PO QWEEK 05/09/23 05/30/23 mcg (50,000 unit) capsule fluticasone propionate 220 2 puff inhalation BID 05/09/23 05/30/23 mcg/actuation HFA aerosol inhaler (Flovent HFA) polyethylene glycol 3350 17 gram 17 g PO DAILY 05/10/23 05/30/23 oral powder packet (Miralax) Allergies Allergy/AdvReac Type Severity Reaction Status Date / Time codeine [CODEINE] Allergy Intermediate Nausea and Verified 12/05/23 20:11 Vomiting erythromycin base Allergy Intermediate Nausea and Verified 12/05/23 20:11 [ERYTHROMYCIN BASE] Vomiting ibuprofen [From MOTRIN] Allergy Intermediate nausea and Verified 12/05/23 20:11 vomiting, hives Review of Systems Review of Systems: Yes all other systems are reviewed and are negative PMFSH Past Medical History Medical History Walker as ambulation aid Cataract Dyskinesia Dystonia Underweight Parkinson disease Nondiabetic gastroparesis IBS (irritable bowel syndrome) Hearing loss Asthma Surgical History Hx of tubal ligation History of Hx of cholecystectomy Social History Social History Are you a primary personal care aide to a significant other at home: No Do you presently have visiting nurse or other home services: Yes ([employer] daily) Patient Tobacco Use Status: Never used Tobacco Advance Directives: No Advance Directives Information Provided: No Physical Exam Vital Signs: Vital Signs: Last Vital Signs Temp 97.8 F 12/06/23 01:34 Pulse 66 12/06/23 01:34 Resp 18 12/06/23 01:34 BP 98/53 L 12/06/23 01:34 Pulse Ox 99 12/06/23 01:34 O2 Del Method Room Air 12/06/23 01:34 BMI result Body Mass Index 17.8 Appearance: Alert. Oriented X3. No acute distress. Eyes: PERRLA, No Nystagmus ENT: Pharynx normal. Oral Mucosa moist stellate shaped laceration left cheek bone Neck: Normal inspection. Neck supple. CVS: Normal heart rate and rhythm. Pulses normal. Respiratory: No respiratory distress. Equal air entry bilateral, Abdomen: Soft and nontender. Bowel sounds are present, no mass palpable, no CVA tenderness Skin: Skin warm and dry. Normal skin color. Normal skin turgor. Extremities: Normal range of movement Neuro: Oriented X 3. No motor deficit. No sensory deficit.No cerebellar signs , cranial nerves II-XII intact HEENT: Head images: 1. Stellate shaped laceration about 3 cm in total length Medications Administered Discontinued Medications Generic Name Dose Route Start Last Admin Trade Name Freq PRN Reason Stop Dose Admin Lidocaine HCl 4 ml 12/06/23 02:36 12/06/23 04:20 Lidocaine Hcl 1 % Mpf 2 Ml Vial INFILTRATI 12/06/23 02:37 4 ml ONCE ONE Administration Procedures Laceration Laceration 1: Site: face Side (If applicable): left Size (cm): 3 Description: stellate Depth: simple, single layer Local Anesthetic: lidocaine 1% Amount of anesthesia used (mL): 4 Skin layer closed with: nylon Size (cm): 6-0 Number of sutures: 8 Technique: simple, interrupted Medical Decision Making Differential Diagnosis Differential Diagnoses: The differential diagnosis associated with the presentation includes Facial fracture/SDH Independent Interpretation I performed an independent interpretation of an: CT Scan Radiology Impression Discussion of test interpretation with radiology: I have reviewed the radiologist's reading. Discharge Plan Discharge Clinical Impression: Face lacerations Patient Disposition: Home, Self-Care Instructions: Laceration (ED) Additional Instructions: Local care as adv Suture removal in 10 days Prescriptions: No Action carbidopa-levodopa 25-100 mg tablet extended release 1 tab PO DAILY fluticasone propionate [Flovent HFA] 220 mcg/actuation HFA aerosol inhaler 2 puff inhalation BID albuterol sulfate [Ventolin HFA] 90 mcg/actuation HFA aerosol inhaler 2 puff inhalation QID PRN (Reason: Shortness Of Breath Or Wheezing) carbidopa-levodopa 25-100 mg tablet 1 tab PO TID cholecalciferol (vitamin D3) 1,250 mcg (50,000 unit) capsule 1,250 mcg PO QWEEK polyethylene glycol 3350 [Miralax] 17 gram Powder In Packet 17 g PO DAILY Interventions: ED Discharge Assessment Last Done: 12/06/23 04:20 Discharge Date/Time: 12/06/23 04:21
[2023-12-06] MEDS: Lidocaine HCl 1 % MPF 2 ML VIAL 4 ML INFILTRATI (04:20)
== END 2023-12-06 04:21 | disposition home or self-care (01) ==
PROVIDERS: Emergency Provider Internal Medicine
DX: S01.81XA Laceration without foreign body of other part of head, initial encounter (principal); R51.9 Headache, unspecified; M54.2 Cervicalgia; W01.10XA Fall on same level from slipping, tripping and stumbling with subsequent striking against unspecified object, initial encounter; Y93.9 Activity, unspecified; Y92.9 Unspecified place or not applicable; Y99.8 Other external cause status
CPT/HCPCS: 12013; 70450; 70486; 72125; 99282; 99284

== ENCOUNTER 2024-07-03 15:49 | Outpatient (REF) | payer OTHER, SELFPAY | END 2024-07-03 15:50 | disposition home or self-care (01) | LOC: HO.SH 15:49 | PROVIDERS: Visit Provider Nurse Practitioner Family | DX: Z01.118 Encounter for examination of ears and hearing with other abnormal findings (principal); H90.3 Sensorineural hearing loss, bilateral | CPT/HCPCS: 92557 ==

== ENCOUNTER 2024-11-01 13:43 | Outpatient (REF) | payer OTHER, SELFPAY ==
--- NOTE | ~2024-11-01 | XR_ITS ---
CLINICAL HISTORY: M25.512 - Pain in left shoulder 2 view left shoulder Comparison: None Findings: Bones intact. No dislocations. There is widening of the AC joint possibly related to previous surgery or trauma. No significant loss of joint space or osteophytes. No erosions. No radiopaque foreign body. IMPRESSION: 1. No acute findings This document has been electronically signed by: David Marie MD on 11/03/2024 07:50:33
== END 2024-11-01 13:44 | disposition home or self-care (01) ==
LOC: HO.HOSX 13:43
PROVIDERS: Visit Provider Orthopaedic Surgery
DX: M25.512 Pain in left shoulder (principal); M24.811 Other specific joint derangements of right shoulder, not elsewhere classified; M75.102 Unspecified rotator cuff tear or rupture of left shoulder, not specified as traumatic; Z91.81 History of falling
CPT/HCPCS: 73030; 99202

== ENCOUNTER 2025-01-01 10:46 | Outpatient (REF) | payer OTHER, SELFPAY ==
--- NOTE | ~2025-01-01 | CT_ITS ---
CLINICAL HISTORY: M75.102 - Unspecified rotator cuff tear or rupture of left shoulder, not... CT left shoulder without contrast Comparison: DX - XR SHOULDER LT MIN 2V - 11/01/24 14:13 EST Findings: No fractures or dislocations. There are subchondral cysts of the superolateral humeral head and in the glenoid. Os acromiale. No radiopaque foreign body. A stimulator is partially visualized. Normal visualized left chest. Impression: No acute findings. Os acromiale. This document has been electronically signed by: Leeanne Catherine MD on 01/02/2025 14:21:42
--- OUTSIDE RECORDS SUMMARY | 2025-01-01 13:04 | XMS_ITS | Continuity of Care Document ---
Author Organization [facility] Fady Joao lt Address [address] [place] [address]- Care Team Providers Care Pot Washer Name Role Phone Matt CHOWDHURY, Duyen Carbajal Primary Care Physician [place] [facility] [place] [facility] [address] [place] [address]- Encounter Type: Triage Allergies, Adverse Reactions, Alerts Substance Criticality Severity Reaction Reaction Severity Status codeine stomach cramps Activ e ibuprofen stomach cramps/ nausea Active azithromycin diarrhea Active Motrin stomach cramps Activ e Nuts itch/stomach cr amps/ nausea Active Seafood stomach cramps/ nausea Active Apples Active Milk Products Active Other Food Allergy gluten oranges/bananas Active Immunizations Given and Recorded Vaccine Date Status Refusal Reason SARS-CoV-2 mRNA ([id number]) vax 10/24/21 Recorded SARS-CoV-2 (COVID-19) mRNA BNT-162b2 vac 02/19/21 Recorded SARS-CoV-2 (COVID-19) mRNA BNT-162b2 vac 01/29/21 Recorded influenza virus vaccine, inactivated 1 11/13/13 Gi elvia influenza virus vaccine, inactivated 10/14/09 Give n influ virus vac, H1N1, inactive(oldterm) 2 09/30/09 Given Pneumococcal Vaccine (oldterm) 11/11/08 Given Tet/Diphth/Acel, Pertussis (oldterm) 11/11/08 Give n 1Admin Note: DECLINED 2Admin Note: H1N1 Medications albuterol CFC free 90 mcg/inh inhalation aerosol 2, puffs, Inhalation, 4 times a day, # 1 each, Refills 11, Tot. Refills 11, Maintenance, 02/24/23 11:09:00 AM EDT, Route to Pharmacy Electronically, [id number], [facility]/pharmacy #[id number], 151, cm, 02/24/23 10:47:00 EDT, Height Start Date: 02/24/23 Status: Ordered Quantity: 1.0 Unit: each Repeat number: 12 carbidopa-levodopa 23.75 mg-95 mg oral capsule, extended release 1 capsule, By Mouth, Daily, Takes with the short acting, # 90 capsule, 0 Refills, Maintenance, 12/23/20 9:49:00 AM EDT, ER Capsule, Partial fill upon patient request if the prescription is for a schedule II opioid drug. Start Date: 12/23/20 Status: Ordered Quantity: 90.0 Unit: capsule Repeat number: 1 ensure clear ensure clear, See Instructions, # 30 can, Refills 11, Tot. Refills 11, Maintenance, dx: Parkinson'sDisease One can daily, 06/30/17 12:39:19 PM EDT, Compound Start Date: 06/30/17 Status: Ordered Quantity: 30.0 Unit: can Repeat number: 12 Hearing Evaluation Hearing Evaluation, See Instructions, # 1 each, Refills 0, Tot. Refills 0, Maintenance, Evaluate and Treat, 04/04/18 3:53:11 PM EDT, Compound Start Date: 04/04/18 Status: Ordered Quantity: 1.0 Unit: each Repeat number: 1 Hearing Test Hearing Test, See Instructions, # 1 each, Refills 0, Tot. Refills 0, Maintenance, Hearing Test EVALand TREAT, 04/05/18 8:43:25 AM EDT, Compound Start Date: 04/05/18 Status: Ordered Quantity: 1.0 Unit: each Repeat number: 1 MiraLax = 17 Gm, By Mouth, Daily, 0 Refills, Maintenance, 11/13/13 10:27:31 AM EST Start Date: 11/13/13 Status: Ordered Repeat number: 1 Multivitamin By Mouth, Daily, 0 Refills, Maintenance, 04/11/12 10:56:32 AM EDT Start Date: 04/11/12 Status: Ordered Repeat number: 1 Rollater (low height) with seat and hand brakes Rollater (low height) with seat and hand brakes, See Instructions, # 1 each, Refills 0, Tot. Refills 0, Maintenance, DX: Parkinsons Disease Length of need: Lifetime Height: 59 inches Weight: 92 lbs.,07/11/14 11:55:40 AM EDT, Compound Start Date: 07/11/14 Status: Ordered Quantity: 1.0 Unit: each Repeat number: 1 Rytary 23.75 mg-95 mg oral capsule, extended release TAKE ONE CAPSULE BY MOUTH EVERY 6 HOURS TAKES WITH ER Start Date: 03/18/16 Status: Ordered Repeat number: 1 SPACER SPACER, See Instructions, # 1, 1 Refills, USE WITH INHALERS, Dx: Asthma, 04/04/07 3:56:07 PM EDT Start Date: 04/04/07 Status: Ordered Quantity: 1.0 Unit: Repeat number: 2 Splint See Instructions, # 1 each, Maintenance, Use as directed. Spica splint left hand DX: Thumb sprain, 03/18/16 9:11:30 AM EDT, Compound Start Date: 03/18/16 Status: Ordered Quantity: 1.0 Unit: each Repeat number: 1 Trelegy Ellipta 200 mcg-62.5 mcg-25 mcg/inh inhalation powder 1 puffs, Inhalation, Daily, at the same time every day, # 1 each, 6 Refills, Maintenance, 10/21/23 2:58:00 PM EST, Powder, [facility]/pharmacy #[id number], Partial fill upon patient request if the prescription is for a schedule II opioid drug., 1 puffs Inhalation Daily,x30 days,Instr:at the same time every day, 151, cm, 05/03/23 15:35:00 EDT, Height Start Date: 10/21/23 Stop Date: 05/18/24 Status: Ordered Quantity: 1.0 Unit: each Repeat number: 7 Vitamin D3 50,000 intl units oral capsule 1 capsule = 1,250 mcg, By Mouth, Every 7 days, # 8 capsule, 0 Refills, Maintenance, 02/28/23 4:08:00PM EDT, [facility]/pharmacy #[id number], Partial fill upon patient request if the prescription is for a scheduleII opioid drug., 151, cm, 02/24/23 10:47:00 EDT, Height Start Date: 02/28/23 Stop Date: 04/25/23 Status: Ordered Quantity: 8.0 Unit: capsule Repeat number: 1 Problem List Condition Confirmation Course Effective Dates Status H ealth Status Informant Asthma-mild intermittent Confirmed Active Hearing loss Confirmed Active IBS - Irritable bowel syndrome Confirmed Active Nondiabetic gastroparesis Confirmed Active Parkinsons disease Confirmed 04/11/12 Active Underweight Confirmed Active Social History Social History Type Response Smoking Status Never smoker entered on: 12/31/16 Sex Female Sex Representation Female (finding) Patient Care team information Care Team Personnel Name: Matt CHOWDHURY, Duyen Carbajal Position: [facility] PCO Associate Professional Member Role: PCP Address: [address] [place] [id number] Telecom: Care Team Related Persons Name: KRYSTINA DANIELLE Name: JESENIA CONWAY Insurance Providers Guarantor name: GERDA CONWAY Health Plan Information #: 1 Payer: [facility] [employer] Member Number: NA Policy Number: NA Group Number: NA
--- OUTSIDE RECORDS SUMMARY | 2025-01-01 13:04 | XMS_ITS | Data Portability ---
Author Organization [facility] Address [address] [address] Care Team Providers Care Tenter Name Role Phone CHAMP CHICAS Referring Provider [phone] AMY RINALDI Primary Care Provider Assessment No assessment recorded. Plan of Treatment Reminders Order Date Submit Date Provider Last Modified By Organization Details Last Modified Time Details Appointments DBS 60 2024 11:30A M PATRICIA SORIANO MD Not available Not available Not available Lab None recorded. Referral physical therapist referral - gait and balance training 2023 024 Not available 08/16/2024 14:56:59 Procedures None recorded. Surgeries None recorded. Imaging None recorded. Medication Orders carbidopa 25 mg-levodo pa 100 mg tablet 2024 025 [facility]/Pharmacy #[id number], [address] [place], [address], 12/12/2024 11:09:28 carbidopa ER 25 mg-levodo pa 100 mg tablet,ex tended release 2024 025 [facility]/Pharmacy #[id number], [address] [place], [address], 12/12/2024 11:09:28 fludrocor tisone 0.1 mg tablet 2024 025 [facility]/Pharmacy #[id number], [address] [place], [address], 12/12/2024 11:09:27 carbidopa 25 mg-levodo pa 100 mg tablet 2023 024 [facility]/Pharmacy #[id number], [address] [facility] , [place], [address], 06/26/2024 14:00:09 Patient TargetsNo targets recorded. Patient InstructionsNo instructions recorded. Reason for Referral Physical Therapist Referral for Parkinson's disease gait and balance training Referring Physician: Patricia Soriano, Neurology, Encounter Date: 06/26/2024 Problems Name Problem SNOMED Code Status Onset Date Resolution Date Notes Provider Name and Address Organization Details Recorded Time Parkinson's disease 60559896 Active 022 PATRICIA SORIANO MD [address] [place] [address], [phone], [facility] 2 13:00:06 Abnormal gait due to impairment of balance 033354235 Active 023 PATRICIA SORIANO MD [address] [place] [address], [phone], [facility] 3 21:42:19 Problem Notes None recorded. Procedures Surgical History Date Name Laterality Status Provider Name and Address Organization Details Recorded Time Generic Procedure Template completed Prema Reno NP [address] [place] [address], [id number], [facility] 02/10/2021 12:22:08 Imaging Results None recorded. Procedure Notes None recorded. Medical Equipment None Reported. Allergies No known drug allergies Medications Name Sig Start Date Stop Date Status Note LastModified by Organization Details LastModified Time Prescript ion - Prior Authoriza tion Request 12/01 completed PA Medicati on- Approved Not Available Not Available Not Available Miralax 17 gram/dose oral powder Take 17 g by oral route as needed. active Not Available Not Available No t Available doxycycli ne hyclate 100 mg capsule TAKE 1 CAPSULE (100 MG TOTAL) BY MOUTH EVERY 12 (TWELVE) HOURS FOR 28 DOSES. 11/01 completed Not Available Not Available Not Available clindamyc in HCl 300 mg capsule TAKE 1 CAPSULE BY MOUTH THREE TIMES A DAY UNTIL FINISHED 09/11 completed Not Available Not Available Not Available carbidopa ER 25 mg-levodo pa 100 mg tablet,ex tended release TAKE 1 TABLET BY MOUTH EVERY DAY DIRECTED active Not Available Not Available No t Available ondansetr on HCl 4 mg tablet TAKE 1 TABLET BY MOUTH EVERY 6 HOURS NEEDED 11/01 completed Not Available Not Available Not Available prednison e 20 mg tablet TAKE 1 TABLET BY MOUTH TWICE A DAY FOR 5 DAYS 12/01 completed Not Available Not Available Not Available tramadol 50 mg tablet Take 1 tablet 3 times a day by oral route as needed for 5 days. 06/18 completed not taking Not Available Not Available Not Available pramipexo le 0.5 mg tablet TAKE 2 TABLETS BY MOUTH EVERY DAY NEEDED 03/21 completed Not Available Not Available Not Available cefadroxi l 500 mg capsule TAKE 2 CAPSULES (1,000 MG TOTAL) BY MOUTH EVERY 12 HOURS FOR 14 DAYS 11/01 completed Not Available Not Available Not Available erythromy manda 250 mg tablet 11/26 completed Not Available Not Available Not Available Mirapex 0.25 mg tablet 1 tab TID for 1 week then 2 tabs TID for 1 week then 3 tabs TID for 1 wek then 4 tabs TID 09/10 completed Not Available Not Available Not Available benzonata te 100 mg capsule TAKE 1 CAPSULE BY MOUTH 3 TIMES A DAY FOR 7 DAYS NEEDED FOR COUGH 09/11 completed Not Available Not Available Not Available cephalexi n 500 mg capsule TAKE 1 CAPSULE BY MOUTH 4 TIMES A DAY FOR 14 DAYS. 11/01 completed Not Available Not Available Not Available pramipexo le 0.125 mg tablet TAKE 1 TABLET BY MOUTH THREE TIMES A DAY 03/21 completed Not Available Not Available Not Available Sinemet CR 50 mg-200 mg tablet,ex tended release Take 1 tablet every day by oral route. 11/06 completed Not Available Not Available Not Available carbidopa 25 mg-levodo pa 100 mg tablet TAKE 1 TABLET BY MOUTH THREE TIMES A DAY 2024 active Not Available Not Available Not Avai lable fludrocor tisone 0.1 mg tablet TAKE 1 TABLET BY MOUTH EVERY DAY IN THE MORNING active Not Available Not Available No t Available amoxicill in 875 mg-potass ium clavulana te 125 mg tablet 03/19 completed Not Available Not Available Not Available Ventolin HFA 90 mcg/actua tion aerosol inhaler INHALE 2 PUFFS 4 TIMES A DAY 01/16 completed Not Available Not Available Not Available oxycodone 5 mg tablet TAKE 0.5-1 TABLETS (2.5-5 MG TOTAL) BY MOUTH EVERY 4 (FOUR) HOURS NEEDED 11/01 completed Not Available Not Available Not Available cyclobenz aprine 5 mg tablet 12/12 completed Not Available Not Available Not Available APOKYN 10 mg/mL subcutane ous cartridge Inject 0.3 mL 3 times a day by subcutan eous route as needed. 09/10 completed Not Available Not Available Not Available nitrofura ntoin monohydra te/macroc rystals 100 mg capsule TAKE 1 CAPSULE BY MOUTH TWICE A DAY FOR 7 DAYS 09/11 completed Not Available Not Available Not Available Flovent HFA 220 mcg/actua tion aerosol inhaler INHALE 2 PUFFS TWICE A DAY 01/16 completed Not Available Not Available Not Available cholecalc iferol (vitamin D3) 1,250 mcg (50,000 unit) capsule TAKE 1 CAPSULE BY MOUTH EVERY WEEK FOR 8 WEEKS 09/11 completed Not Available Not Available Not Available Neupro 4 mg/24 hour transderm al 24 hour patch Apply 1 patch every day by transder mal route. 08/15 completed Not Available Not Available Not Available diclofena c 1 % topical gel APPLY TOPICALL Y 4 TIMES A DAY NEEDED FOR PAIN 12/01 completed Not Available Not Available Not Available pramipexo le ER 0.75 mg tablet,ex tended release 24 hr 1 tab daily 03/21 completed Not Available Not Available Not Available Gocovri 68.5 mg capsule,e xtended release Take 1 capsule every day by oral route. 11/06 completed Not Available Not Available Not Available Gocovri 137 mg capsule,e xtended release 05/23 completed Not Available Not Available Not Available Inbrija 42 mg capsules for inhalatio n 03/19 completed Not Available Not Available Not Available Inbrija 42 mg capsule with inhalatio n device active Not using. Not Available Not Available Not Available Nourianz 20 mg tablet Take 1 tablet every day by oral route. 03/19 completed Not Available Not Available Not Available Kynmobi 10 mg-15 mg-20 mg-25 mg-[address] film Place 1 film 5 times a day by sublingu al route as needed. 07/28 completed Not Available Not Available Not Available Kynmobi 10 mg sub[address] l film Place 1 film twice a day by sublingu al route. 03/20 completed Not Available Not Available Not Available Trelegy Ellipta 200 mcg-62.5 mcg-25 mcg powder for inhalatio n INHALE 1 PUFF INTO THE LUNGS DAILY FOR 30 DAYS, AT THE SAME TIME EVERY DAY active Not Available Not Available No t Available Vitals Date Recorded Body height Body mass index (BMI) Body weight Systolic blood pressure Diastolic blood pressure Systolic blood pressure Diastolic blood pressure Provider Name and Address Organization Details Last Updated DateTime 147.32 cm 17.6 kg/m2 63082.7 6 g 118 mm[Hg] 66 mm[Hg] 104 mm[Hg] 68 mm[Hg] [facility] 4 13:12:04 Date Recorded Body height Body mass index (BMI) Body weight Provider Name and Address Organization Details Last Updated DateTime 12/12/2024 147.32 cm 17.6 kg/m2 05783.76 g Isaiah Pickenscone [facility] 12/12/2024 10:30:02 Date Recorded Systolic blood pressure Diastolic blood pressure Systolic blood pressure Diastolic blood pressure Provider Name and Address Organization Details Last Updated DateTime 06/26/2024 124 mm[Hg] 72 mm[Hg] 112 mm[Hg] 76 mm[Hg] Ugo Alexander [facility] 4 13:24:04 Social History None recorded. Functional Status None recorded. Mental Status None recorded. Family History Nothing Reported. Medical History Condition Response no past medical history reported Y Gynecological HistoryNo gynecological history recorded. Obstetrics History GPAL:G 0 P 0 0 0 0 Past Encounters Encounter ID Performer Location Encounter Start Date Encounter Closed Date Diagnosis/Indication Diagnosis SNOMED-CT Code Diagnosis ICD10 Code Diagnosis Note [id number] JAMAL BARDLEY MD [facility] [address] [place] [address] 07/09/2019 14:30:52 07/09/2019 16:23:12 Parkinson's disease 08442527 G20 [id number] JAMAL BRADLEY MD [facility] [address] [place] [phone] 11/06/2019 13:43:22 11/06/2019 15:48:14 Parkinson's disease 85813054 G20 [id number] JAMAL BRADLEY MD [facility] [address] [place] [id number] 12/14/2019 10:51:06 12/14/2019 12:00:32 Parkinson's disease 00154919 G20 [id number] JAMAL BRADLEY MD [facility] [address] [place] [phone] 04/01/2020 10:00:15 04/01/2020 11:16:56 Parkinson's disease 38775658 G20 [id number] JAMAL BRADLEY MD [facility] [address] [place] [phone] 7 05/23/2020 09:54:14 05/23/2020 10:49:04 Parkinson's disease 74725499 G20 [id number] [facility] [address] [place] [id number] 7 08/22/2020 11:29:08 08/22/2020 12:57:40 Parkinson's disease 46321609 G20 [id number] JAMAL BRADLEY MD [facility] [address] [place] [id number] 7 11/26/2020 13:22:57 11/26/2020 15:06:36 [id number] MIGUEL Eaton [facility] [address] [place] [id number] 7 12/30/2020 11:40:48 12/30/2020 12:01:05 Parkinson's disease 35610530 G20 Acute uppe r respiratory infection 96617560 J06.9 *Order must be faxed to [facility] Patient Access Fax # [phone]* This order is for PRE-OP Testing Fever [id number] R50.9 *Order must be faxed to [facility] Patient Access Fax # [phone]* [id number] Prema Alethasa Shadia NP [facility] COVID-[facility] TESTING CL[facility]IC [address], [address] [place] [address] 02/10/2021 11:16:13 04/17/2021 13:05:10 Viral screening [id number] Z11.59 [id number] MIGUEL Eaton [facility] [address] [place] [id number] 02/27/2021 11:07:17 02/27/2021 12:15:27 Parkinson's disease 99918472 G20 [id number] JAMAL BRADLEY MD [facility] NE[facility] OFF[facility] [address] [place] [id number] 03/06/2021 10:58:16 03/06/2021 15:30:02 Parkinson's disease 45624916 G20 [id number] JAMAL BRADLEY MD [facility] NEUR[facility] OFF[facility] [address] [place] [id number] 07/15/2021 11:37:10 07/15/2021 13:39:08 Parkinson's disease 49023981 G20 Start taking Kynmobi when you feel off. It goes under the tongue. Kicks in in 10 minutes and lasts up to 90 minutes. You can take up to 5 times/day Continue Sinemet 25/100 1/4 t 6am and then when you wear off at 8am take Kynmobi [id number] JAMAL BRADLEY MD [facility] [address] [facility] [address] [place] [phone] 07/28/2021 10:45:06 07/28/2021 15:41:32 Parkinson's disease 68124297 G20 [id number] JAMAL BRADLEY MD [facility] [address] [place] [id number] 7 12/04/2021 10:48:20 12/04/2021 12:39:58 Parkinson's disease 66841502 G20 [id number] JAMAL BRADLEY MD [facility] [address] [place] [id number] 7 03/19/2022 12:03:04 03/19/2022 15:12:23 Parkinson's disease 79243152 G20 [id number] CHRIS EVANS [facility] [address] [place] [phone] 7 06/18/2022 13:05:18 07/09/2022 14:15:24 Parkinson's disease 28938847 G20 -Start Apokyn trial for off periods-Co ntinue Sinemet 25/100 1/4 tablet TID, encouraged regular dosing schedule-C ontinue Sinemet ER 2/100 1 tablet qHS-Contin ue current exercise regimen-Sp eech therapy offered, patient not interested at this time [id number] PATRICIA SORIANO MD [facility] NEUR[facility] OFFICE [address] [place] [id number] 7 08/18/2022 11:44:50 08/18/2022 12:57:44 Parkinson's disease 62666260 G20 This is a 40 yo woman with GBA 7 with a history of young-onse t PD with DBS following up for routine follow-up visit. PD was diagnosed in 2001 at the age of 22 y. She is excessivel y sensitive to PD meds due to dyskinesia s. RIPG 2.8v, 50,1602.9/ .0v /50/160- improved speech and left arm swing ContactLIP G 2.5/30/130 inc to 2.7v/3/130 with reduction in right leg scissoring Greater than 50% of this 30 min encounter was spent coordinati ng care and 45 min programmin g DBS. [id number] PATRICIA SORIANO MD [facility] [address] [place] [phone] 12/01/2022 11:34:18 12/01/2022 14:27:49 Parkinson's disease 02929408 G20 This is a 42 year old woman with GBA 7 with a history of young-onse t PD with DBS following up for routine follow-up visit. PD was diagnosed in 2001 at the age of 22 y. She is excessivel y sensitive to PD meds due to dyskinesia s. She is also sensitive to DBS adjustment s. Patient takes quarter tablet of Sinemet that last approximat nilda 3 hours. Patient will have a tingling/ off sensation around three hours time frame and will take another dose. Patient doses occur on how she feels than on exact timing of dose. Patient arrives to day very dyskinetic as she took a 1/4 tablet of Sinemet at 930am and 10am as when she is a passenger in the car it causes an increase in dystonia. Patient continues to have Botox. Patient continues to have scissor walking. Patient continues to be very dysarthric . She denies any dizziness and stay sell hydrated. Reports one fall as she did a pivot turn in her bathroom. She has tried Amantadine years ago. In the past three years patient has been tried on apokyn, Gocovri, Inbrija, Kynmobi, Mirapex, Neupro patch, Pramipexol e, all having sides effects or not effective. Patient is a grandmothe r to a grandchild born in May 2022. [employer] DBS STNBilater al Neuro stimulator se1/e2Bost [facility]/ Neurosurge ry. CURRENT SETTINGSRI GHT battery 6 years and 6 months remainingL EFT battery 9 years 8 monthsR STN: C+ 2- 3v, 50,160L STN 2.5/30/130 ADJUSTMENT R STN: C+ 2- 3v, 50,160incr ease voltage form 3v to 3.4vL STN: C+ 1- 2.5v to 3v /30 to 40/130 to 110Increas e voltage form 2.7v to 3v ( higher voltage made walking worse with heaviness in gait)Incre ase PW form 30 to 40Explore Hz: 130 to 170 cause more dyskinesia s and lower from 130 to 40 made gait jonas FINAL SETTINGR STN: C+ 2- 3.4v, 50,160L STN C+ 1-, 3V/40/110 MOCA: none todayBlood sypdxwhu64 /61 HR 73Weight 80 pounds PLANReduce Sinemet throughout the day using 1/4 tablets as she has been using and document the number of times taking Sinemet in a 24 hour period.Phy sical Therapy Outpatient : Evaluation and Treatment for Gait and balance training.C ontinue to stay well hydratedCa ll in one week or portal update.Fol low up in three months in [facility] Greater than 50% of this 45 min encounter was spent coordinati ng care and 45 min programmin g DBS. [id number] PATRICIA SORIANO MD [facility] NEUROLOGY OFFICE [address] [place] [address] 02/09/2023 12:10:39 02/09/2023 14:29:56 Parkinson's disease 60419316 G20 This is a 42 year old woman with GBA 7 with a history of young-onse t PD with DBS following up for routine follow-up visit. PD was diagnosed in 2001 at the age of 22 y. She is excessivel y sensitive to PD meds due to dyskinesia s. She is also sensitive to DBS adjustment s. Patient takes quarter tablet of Sinemet that last approximat nilda 3 hours. Patient continue to have a tingling/ off sensation around three hours time frame and will take another dose. Patient doses occur on how she feels than on exact timing of dose. She is driven by her father. Elizabeth Moore account rep her from [email or web address] to help with sensing and scanning.P esther arrives today with her concerns of left foot dyskinetic and dystonic, including right leg tremor. Patient continues to have Botox. Patient continues to have scissor walking. Patient continues to be very dysarthric .She denies any dizziness and stay well hydrated. Reports one fall as she did a pivot turn in her bathroom.S he has tried Amantadine years ago. In the past three years patient has been tried on apokyn, Gocovri, Inbrija, Kynmobi, Mirapex, Neupro patch, Pramipexol e, all having sides effects or not effective. [employer] DBS STNBilater al Neuro stimulator se1/e2Bost on [facility]/ Neurosurge ry.CURRENT SETTINGSRI GHT battery 5 years and 10 months remainingL EFT battery 8 years 11 monthsR STN: C+ 1- 3.4mA, , 50/,160L STN C+ 2- 3 ma/40/110A DJUSTMENT L STN: C+ 2- 3.0v, 40,110Incr ease from 110 to 160Hz- increasein crease pw from 40 to 60 R STN C+ 1-, 3V/40/160R educed hz from 160 to 110Increas e from 3.4 to 3.7 better.Inc rease frm 3.7 to 3.9vexplor ed PW, 30, 60, 70 and 90 with worsening of condition. from 3v to 3,8vPW for inc from 40 to 50Decrease from 160 to 110 FINAL SETTIGNSR STN: C+ 1- 3.8mA, , 50/,110L STN C+ 2- 3 ma/50/110 Improved left leg dystonia and less scissoring and improved left hand opening and clsingImpr adonay left let tremor but still present PLANBotox injections in this week at [facility] e Sinemet throughout the day using 1/4 tablets as she has been using and document the number of times taking Sinemet in a 24 hour period.Phy sical Therapy Outpatient : Evaluation and Treatment for Gait and balance training.C ontinue to stay well hydratedCa ll in one week or portal update.Fol low up in three months in [facility] Greater than 50% of this 60 min encounter was spent discussing PD and another 60 min was spent on DBS programmin g. Abnormal g ait due to impairment of balance [id number] R26.89 Patient with gait dysfunctio n. Will order PT. [id number] PATRICIA SORIANO MD [facility] [address] [place] [address] 02/10/2023 13:18:54 02/14/2023 08:01:56 Parkinson's disease 56440205 G20 This is a 42 year old woman with GBA 7 with a history of young-onse t PD with DBS following up for routine follow-up visit. PD was diagnosed in 2001 at the age of 22 y. She is excessivel y sensitive to PD meds due to dyskinesia s. She is also sensitive to DBS adjustment s. Patient takes quarter tablet of Sinemet that last approximat nilda 3 hours. Patient will have a tingling/ off sensation around three hours time frame and will take another dose. Patient doses occur on how she feels than on exact timing of dose. Patient arrives to day very dyskinetic as she took a 1/4 tablet of Sinemet at 930am and 10am as when she is a passenger in the car it causes an increase in dystonia. Patient continues to have Botox. Patient continues to have scissor walking. Patient continues to be very dysarthric . She denies any dizziness and stay sell hydrated. Reports one fall as she did a pivot turn in her bathroom. She has tried Amantadine years ago. In the past three years patient has been tried on apokyn, Gocovri, Inbrija, Kynmobi, Mirapex, Neupro patch, Pramipexol e, all having sides effects or not effective. Patient is a grandmothe r to a grandchild born in May 2022. [employer] DBS STNBilater al Neuro stimulator se1/e2Bost on [facility]/ Neurosurge ry. CURRENT SETTINGSRI GHT battery 6 years and 6 months remainingL EFT battery 9 years 8 monthsR STN: C+ 2- 3v, 50,160L STN 2.5/30/130 FINAL SETTINGR STN: C+ 2- 3.4v, 50,160L STN C+ 1-, 3V/40/110 PLANReduce Sinemet throughout the day using 1/4 tablets as she has been using and document the number of times taking Sinemet in a 24 hour period.Phy sical Therapy Outpatient : Evaluation and Treatment for Gait and balance training.C ontinue to stay well hydratedCa ll in one week or portal update.Fol low up in three months in [facility] Greater than 50% of this 45 min encounter was spent coordinati ng care and 45 min programmin g DBS. [id number] PATRICIA SORIANO MD [facility] [address] [place] [address] 05/25/2023 11:31:48 05/25/2023 12:51:27 Parkinson's disease 42473748 G20 Pleasant 43 year old woman with GBA 7 with a history of young-onse t PD with DBS following up for routine follow-up visit. PD was diagnosed in 2001 at the age of 22 y. She continues to be excessivel y sensitive to PD meds due to dyskinesia s. She is also sensitive to DBS adjustment s and does not want any adjustment to her stimulator today. Patient continues to takes quarter tablet of Sinemet that last approximat nilda 3 to 3.5 hours.Idalmis ent arrives today dyskinetic as she adjusts her meds when she is a passenger in the car it causes an increase in dystonia. Patient continues to have Botox. Patient continues to have scissor walking as noted in today's exam. Patient did not start PT and is willing to restart in the next 30 days. Patient continues to be very dysarthric . Reports continues to fall as she does a pivot turn in her bathroom with the last fall on Tuesday falling on her face with a questionab le fracture nose. She reports falling at least once weekly. She continues to c/o tingling at the end of her nose. She reports she did not seek any medical evaluation .Patient had cataract surgery this week on her right eye and pending cataract surgery on he left eye.In the past he past three years patient has been tried on amantadine ,apokyn, Gocovri, Inbrija, Kynmobi, Mirapex, Neupro patch, Pramipexol e, all having sides effects or not effective. Patient is a grandmothe r to a one year old child. She picks her granddaugh ter up when she is sitting in a chair or couch. She does not pick her up from a standing position.M [employer] DBS STNBilater al Neuro stimulator se1/e2Bost on [facility]/ Neurosurge ry.CURRENT SETTINGSRI GHT battery 5 years and 10 months remainingL EFT battery 9 years 2 monthsR STN: C+ 1- 3mA, 50,160 group bL STN C+ 2-, 2.7mA/30/1 30 group c NO ADJUSTMENT REQUESTED BY PATIENTFIN AL SETTINGR STN: C+ 1- 3mA, 50,160 group bL STN C+ 2-, 2.7mA/30/1 30 group c PLANContin ue Sinemet throughout the day using 1/4 tablets every 3 to 3.4 hours.Phys ical Therapy Outpatient : Evaluation and Treatment for Gait and balance training.I ncrease fluids daily with salt such as tomato or V-8 juice.Cont inue with hearing evaluation .Continue on same medication regimen.Dr núñez one bottle of water prior to noontime.C ontinue to stay well hydratedCa ll or use portal update as neededFoll ow up in five to six months in [facility] Greater than 50% of this 45 min encounter was spent coordinati ng care and 15 min interogati ng DBS. 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 PD was diagnosed in 2001 at the age of 22 y. She continues to be excessivel y sensitive to PD meds due to dyskinesia s. She is also sensitive to DBS adjustment s.In the past the patient has been tried on amantadine ,apokyn, Gocovri, Inbrija, Kynmobi, Mirapex, Neupro patch, Pramipexol e, all having sides effects or not effective. [employer] DBS STNBilater al Neuro stimulator se1/e2Bost on [facility]/ Neurosurge ry.Battery at 5 Y 5 mosUpcomin g L IPG placement in two monthsCURR ENT SETTINGSRI GHT battery 5 years and 10 months remainingL EFT battery 9 years 2 monthsR STN: C+ 1- 3mA, 50,160 group b(L STN C+ 2-, 2.7mA/30/1 30 group c ) right side adjusted from 3.0 to 3.2FINAL SETTINGR STN: C+ 1- 3.2mA, 50,160 group b She had LIPG removed for infectionP LANNew DBS lead placement next monthConti nue Sinemet throughout the day using 1/4 tablets every 3 to 3.4 hours.Incr ease fluids daily with salt such as tomato or V-8 juice.Cont inue with hearing evaluation .Continue on same medication regimen.Dr núñez one bottle of water prior to noontime.C ontinue to stay well hydratedCa ll or use portal update as neededFoll ow up in five to six months in [facility] Greater than 50% of this 45 min encounter was spent coordinati ng care and 15 min programmin g DBS. [id number] PATRICIA SORIANO MD [facility] OFF[facility] [address] [place] [address] 01/17/2024 11:26:11 01/17/2024 12:36:49 Parkinson's disease [id number] G20.B2 Pleasant 43 year old woman with GBA 7 with a history of young-onse t PD with DBS following up post left explantati on after infection. PD was diagnosed in 2001 at the age of 22 y. She continues to be excessivel y sensitive to PD meds due to dyskinesia s. She is also sensitive to DBS adjustment s.In the past the patient has been tried on amantadine ,apokyn, Gocovri, Inbrija, Kynmobi, Mirapex, Neupro patch, Pramipexol e, all having sides effects or not effective. [employer] DBS STNBilater al Neuro stimulator se1/e2Bost on [facility]/ Neurosurge ry.Battery at 5 Y 5 mosUpcomin g L IPG placement in two monthsCURR ENT SETTINGSRI GHT battery 5 years and 10 months remainingL EFT battery 9 years 2 monthsR STN: C+ 1- 3mA, 50,160 group b(L STN C+ 2-, 2.7mA/30/1 30 group c) explanted right side adjusted from 3.2 to 3.3FINAL SETTINGR STN: C+ 1- 3.2mA, 50,160 group b She had LIPG removed for infectionP LANNew DBS lead placement February 26MRI February 02 Continue Sinemet throughout the day using 1/4 tablets every 2 hours Increase fluids daily with salt such as tomato or V-8 juice. Continue with hearing evaluation . Continue on same medication regimen. Drink one bottle of water prior to noontime. Continue to stay well hydrated Call or use portal update as needed counseled regarding taking medication s on schedule and with 8oz waterincre ased stimulator to 3.3Follow up in d Dr. Reddy Greater than 50% of this 45 min encounter was spent coordinati ng care and 30 min programmin g DBS. [id number] PATRICIA SORIANO MD [facility] OFFICE [address] [place] [address] 05/30/2024 13:20:57 05/30/2024 15:14:55 Parkinson's disease [id number] G20.B2 Pleasant 44 year old woman with GBA 7 with a history of young-onse t PD with DBS following up today for initial programmin g of LEFT STN after explanted due to an infection. PD was diagnosed in 2001 at the age of 22 y. She continues to be excessivel y sensitive to PD meds due to dyskinesia s. She is also sensitive to DBS adjustment s. She experience severe off periods of dystonia with pain and increased emotions [employer] account rep present for scanning and programmin g In the past the patient has been tried on amantadine ,apokyn, Gocovri, Inbrija, Kynmobi, Mirapex, Neupro patch, Pramipexol e, all having sides effects or not effective. Patient continues to have severe dyskinesia s, balance issues with several falls.MEDT RONIC DBS STNRECHARG EABLEBilat eral Neuro stimulator se1/e2ORGI NAL [facility]/ Neurosurge ry.REPLACE MENT OF LEFT e1/e2 due to infection- [facility] George Reddy, [facility] Rechargeab le on RIGHT, Dr George Reddy, [facility] CURRENT SETTINGSRI GHT battery 5 years anLEFT battery 9 years 2 monthsR STN: C+ 1- 3mA, 50,160 group b INITIAL PROGRAMMIN GL STN C+ 2-, 0.0mA to 0.5mA/60/1 25L STN C+ 2-, 0.0mA to 1.0mA/60/1 25L STN C+ 2-, 1.0mA to 0.6mA/60/1 25L STN C+ 2-, 0.5mA to 0.8mA/60/1 25 side effects, retested this twice L STN C+ 1-, 0.0mA to 0.5mA/60/1 25 - dystoniaL STN C+ 1-, 0.5mA to 1.0mA/60/1 25 -L STN C+ 1-, 1.0mA to 1.5mA/60/1 25 - good walkingL STN C+ 1-, 1.5 to 1.8mA/60/1 25 R STN: C+ 1- 3.2mA, 60,125 group b CHANGED PULSE WIDTH AND HERTZ TO CAPTURE SENSING FINAL SETTINGL STN C+ 1-, 1.8mA/60/1 25R STN: C+ 1- 3.2mA, 60,125 group b Blood liphtlam20 /64 uljajqa22/ 74 standing PLANContin ue Sinemet throughout the day using 1/4 tablets every 2 hoursIncre ase fluids daily with salt such as tomato or V-8 juice.Cont inue with hearing evaluation .Continue on same medication regimen.Dr núñez one bottle of water prior to noontime.C ontinue to stay well hydratedSt rive for three meals daily with snacksCall or use portal update as neededCHAR GE ALL COMPONETS OF DBS PRIOR TO VISITIf having more dyskinesia s, then it is less SInemetSep tember 2023 at 1pm Greater than 50% of this 45 min encounter was spent discussing PD and coordinati ng care. Another 45 min was spent on DBS programmin g. [id number] PATRICIA SORIANO MD [facility] [address] [place] [address] 06/26/2024 13:18:33 06/26/2024 14:05:49 Parkinson's disease [id number] G20.B2 Pleasant 44 year old woman with GBA 7 with a history of young-onse t PD with DBS following up today for initial programmin g of LEFT STN after explanted due to an infection. PD was diagnosed in 2001 at the age of 22 y. She continues to be excessivel y sensitive to PD meds due to dyskinesia s. She is also sensitive to DBS adjustment s. She experience severe off periods of dystonia with pain and increased emotions [employer] account rep present for scanning and programmin g In the past the patient has been tried on amantadine ,apokyn, Gocovri, Inbrija, Kynmobi, Mirapex, Neupro patch, Pramipexol e, all having sides effects or not effective. Patient continues to have severe dyskinesia s, balance issues with several falls.MEDT RONIC DBS STNRECHARG EABLEBilat eral Neuro stimulator se1/e2ORGI NAL [facility]/ Neurosurge ry.REPLACE MENT OF LEFT e1/e2 due to infection- Dr George Reddy, [facility] Rechargeab le on RIGHT, Dr George Reddy, [facility] CURRENT SETTINGSRI GHT battery 5 years anLEFT battery 9 years 2 monthsR STN: C+ 1- 3mA, 50,160 group b INITIAL PROGRAMMIN GL STN C+ 2-, 0.0mA to 0.5mA/60/1 25L STN C+ 2-, 0.0mA to 1.0mA/60/1 25L STN C+ 2-, 1.0mA to 0.6mA/60/1 25L STN C+ 2-, 0.5mA to 0.8mA/60/1 25 side effects, retested this twice L STN C+ 1-, 0.0mA to 0.5mA/60/1 25 - dystoniaL STN C+ 1-, 0.5mA to 1.0mA/60/1 25 -L STN C+ 1-, 1.0mA to 1.5mA/60/1 25 - good walkingL STN C+ 1-, 1.5 to 1.8mA/60/1 25 R STN: C+ 1- 3.2mA, 60,125 group b CHANGED PULSE WIDTH AND HERTZ TO CAPTURE SENSING FINAL SETTINGL STN C+ 1-, 1.8mA/60/1 25R STN: C+ 1- 3.2mA, 60,125 group b PLANContin ue Sinemet throughout the day using 1/4 tablets every 2 hoursIncre ase fluids daily with salt such as tomato or V-8 juice.Cont inue with hearing evaluation .Continue on same medication regimen.Dr núñez one bottle of water prior to noontime.C ontinue to stay well hydratedSt rive for three meals daily with snacksCall or use portal update as neededCHAR GE ALL COMPONETS OF DBS PRIOR TO VISITIf having more dyskinesia s, then it is less SInemetSep tember 2023 at 1pm Greater than 50% of this 45 min encounter was spent discussing PD and coordinati ng care. Another 45 min was spent on DBS programmin g. [id number] PATRICIA SORIANO MD [facility] OFF[facility] [address] [place] [address] 09/11/2024 12:51:33 09/11/2024 16:00:57 Parkinson's disease [id number] G20.B2 Pleasant 44 year old woman with GBA 7 with a history of young-onse t PD with DBS following up today for interrogat ion of LEFT/RIGHT STN. LEFT STN was explanted due to an infection in October 2023. PD was diagnosed in 2001 at the age of 22 y. She continues to be excessivel y sensitive to PD meds due to dyskinesia s. She is also sensitive to DBS adjustment s. She experience severe off periods of dystonia with pain and increased emotions. In the past the patient has been tried on amantadine ,apokyn, Gocovri, Inbrija, Kynmobi, Mirapex, Neupro patch, Pramipexol e, all having sides effects or not effective. Patient continues to have severe dyskinesia s, balance issues with several falls. However, she is feels well-manag ed and appeared well-contr olled on exam. We made no changes to her stimulatio n or medication regimen today.MEDT RONIC DBS STNRECHARG EABLEBilat eral Neuro stimulator se1/e2ORGI NAL [facility]/ Neurosurge ry.REPLACE MENT OF LEFT e1/e2 due to infection- Dr George Reddy, [facility] Rechargeab le on RIGHT, Dr George Reddy, [facility] INITIAL PROGRAMMIN G and FINAL SETTINGL STN C+ 1-, 1.5mA/60/1 25 battery is 80%R STN: C+ 1- 3.3mA, 50,125 group b battery is at 40% PLANContin ue Sinemet throughout the day using 1/4 tablets every 3.5 hoursIncre ase fluids daily with salt such as tomato or V-8 juice.Cont inue with pursuit of working hearing aids.Drink one bottle of water prior to noontime.C ontinue to stay well hydratedSt rive for three meals daily with snacksCall or use portal update as neededCHAR GE ALL COMPONETS OF DBS PRIOR TO VISITIf having more dyskinesia s, then it is less SinemetFol lowup in 3-4 months Greater than 50% of this 45 min encounter was spent discussing PD and DBS and 30 min was spent interogati ng DBS. [id number] PATRICIA SORIANO MD [facility] [address] [facility] [address] 12/12/2024 10:14:45 12/12/2024 15:02:11 Parkinson's disease [id number] G20.B2 Pleasant 44 year old woman with GBA 7 with a history of young-onse t PD with DBS following up today for interrogat ion of LEFT/RIGHT STN. LEFT STN was explanted due to an infection in October 2023. PD was diagnosed in 2001 at the age of 22 y. She continues to be excessivel y sensitive to PD meds due to dyskinesia s. She is also sensitive to DBS adjustment s. She experience severe off periods of dystonia with pain and increased emotions.I n the past the patient has been tried on amantadine ,apokyn, Gocovri, Inbrija, Kynmobi, Mirapex, Neupro patch, Pramipexol e, all having sides effects or not effective. Patient continues to have dyskinesia s, balance issues with several falls. However, she is feels well-manag ed and appeared well-contr olled on exam. We made no changes to her stimulatio n or medication regimen today. [employer] DBS STNRECHARG EABLEBilat eral Neuro stimulator se1/e2ORGI NAL [facility]/ Neurosurge ry.REPLACE MENT OF LEFT e1/e2 due to infection- Dr George Reddy, [facility] Rechargeab le on RIGHT, Dr George Reddy, BWHINITIAL PROGRAMMIN G andFINAL SETTINGL STN C+ 1-, 1.5mA/60/1 25 battery is 80%R STN: C+ 1- 3.3mA, 50,125 group b battery is at 40%PLANRev ere medical portal phone number given to re establish portal usage.Star t florinef 0.1mg one tablet in the am for one week trial, call on December 20 with an update.Ins tructed to take Blood pressure one hour after taking poContinue Sinemet throughout the day using 1/4 tablets every 3.5 hoursConti nue with good fluids daily including tomato or V-8 juice.Cont act [facility] returned case inspector to help with hearing aids that are not workingDri nk one bottle of water prior to noontime.C ontinue to stay well hydratedSt rive for three meals daily with snacks, currently two meals dailyCall or use portal update as neededCHAR GE ALL COMPONETS OF DBS PRIOR TO VISITCall in one week with updateFoll owup in 6 months Greater than 50% of this 45 min encounter was spent discussing PD and DBS and 30 min was spent interrogat ing DBS. Health Concerns Section Related Observation LastModified by Organization Detai ls LastModified Time None Recorded Concern Status LastModified by Organization Details LastModified Time None Recorded Advance Directives Directive None Recorded Payers Encounter Date Sequence Insurance Name Policy Number Policy Mendieta Covered Member ID Mendieta Member ID Guarantor Name 01/17/2024 1 [facility] [employer] - DOS ON OR AFTER 2023 - ONE CARE (MEDICARE REPLACEMENT/ADV ANTAGE - HMO) Deja Edith [id number] Deja Bolanoskirt 05/30/2024 1 [facility] - DOS ON OR AFTER 2023 - ONE CARE (MEDICARE REPLACEMENT/ADV ANTAGE - HMO) Deja Edith [id number] Deja Edith 06/26/2024 1 [facility] [employer] - DOS ON OR AFTER 2023 - ONE CARE (MEDICARE REPLACEMENT/ADV ANTAGE - HMO) Deja Sharma [id number] Deja Edith 09/11/2024 1 [facility] [employer] - DOS ON OR AFTER 2023 - ONE CARE (MEDICARE REPLACEMENT/ADV ANTAGE - HMO) Deja Sharma [id number] Dejakimmie Sharma 12/12/2024 1 [facility] [employer] - DOS ON OR AFTER 2023 - ONE CARE (MEDICARE REPLACEMENT/ADV ANTAGE - HMO) Deja Edith [id number] Deja Edith Notes Date Note Type Note Provider Name and Address Organization Details Recorded Time 01/17/2024 text/html 43 year old maria del carmen n with GBA 7 with a history of young-onset PD with DBS following up for post left explantation after infection. PD was diagnosed in 2001 at the age of 22y. She continues to be very sensitive to PD meds due to dyskinesias. She is also sensitive to DBS adjustments. Today is anxious about surgery and the infection which she believe could be back because her neck pain x1 month worse with movement. Brought to appointment by father. Moved up her appointment with Dr. Reddy at the [facility] to 3PM today 01/16. Right leg with tremor, dyskinesia, eye closing all worse without the DBS. Last dose of sinemet was at 9:30 AM. Coordination and walking have been harder without the implantation though still ambulating independently. Had a fall in november 2023: folding laundry standing up walking back fell backwards and hit left [facility] healing well. Carbidopa 25 mg - levodopa 100 mg 1/4 tab every hour and a half round the clock prescribed. Sometimes takes medications when feels bad and not on schedule. Patient has been tried on amantadine, apokyn, Gocovri, Inbrija, Kynmobi, Mirapex, Neupro patch, Pramipexole, all having sides effects or not effective. Surgery planned February 26 left side DBS reimplantation with small rechargeable battery (lasts 15 years); right DBS will stay in until the device dies. February 02 MRI. PATRICIA SORIANO MD [address] [place] [address], [phone], [facility] 01/17/2024 20:48:49 05/30/2024 text/html Pleasant 44 year old woman with GBA 7 with a history of young-onset PD with DBS following up today for initial programming of LEFT STN after explanted due to an infection. PD was diagnosed in 2001 at the age of 22 y. She continues to be excessively sensitive to PD meds due to dyskinesias. She is also sensitive to DBS adjustments. She experience severe off periods of dystonia with pain and increased emotions [employer] [facility] account rep present for scanning and programming In the past the patient has been tried on amantadine,apokyn, Gocovri, Inbrija, Kynmobi, Mirapex, Neupro patch, Pramipexole, all having sides effects or not effective. Patient continues to have severe dyskinesias, balance issues with several falls. PATRICIA SORIANO MD [address] [place] [address], [phone], [facility] 06/04/2024 20:04:10 06/26/2024 text/html Pleasant 44 year old woman with GBA 7 with a history of young-onset PD with DBS following up today for a follow up visit for her PD. She was diagnosed in 2001 at the age of 22 y. She continues to be excessively sensitive to PD meds due to dyskinesias. She is also sensitive to DBS adjustments. Eron Jane, Senior Account Rep from [employer] present for brain sensing and live streaming, Patient is overall pleased with her new setting and happy with the current regimen of meds and stimulation. She is not interested in any changes to her stimluator today. It was noted she had a left side tremor and still not interested in any adjustment. In the past the patient has been tried on amantadine,apokyn, Gocovri, Inbrija, Kynmobi, Mirapex, Neupro patch, Pramipexole, all having sides effects or not effective. Patient has improved dyskinesias but can become moderate when activating her in a conversation.Her balance and gait issues are worse. She would benefit from Outpatient PT for gait and balance training as well as using the walker at all times. Patient reported three fall. Patient is scheduled for a hearing evaluation. He sleep routine is up in the am and then returns back to bed until 11am. PATRICIA SORIANO MD [address] [place] [address], [phone], [facility] 06/26/2024 21:44:09 09/11/2024 text/html Pleasant 44 year old woman with GBA 7 with a history of young-onset PD with DBS following up today for PD. She was diagnosed in 2001 at the age of 22 y. She continues to be excessively sensitive to PD meds due to dyskinesias. She is also sensitive to DBS adjustments. In the past the patient has been tried on amantadine,apokyn, Gocovri, Inbrija, Kynmobi, Mirapex, Neupro patch, Pramipexole, all having sides effects or not effective. She has improved dyskinesias, though still endorses issues with gait and coordination. She estimates she falls about once per week, noting one fall with head strike in the bathroom 3 weeks ago. She does not typically use her walker. She continues to take a little less than 1/4 tablet of carbidopa-levodopa every 3.5 hours, with the intervals shortening closer to bedtime (every 1/2 hour from 8:30-9:30pm). She takes a dose of carbidopa-levodopa extended release at 9:30pm nightly. Patient is overall pleased with her settings and happy with the current regimen of meds and stimulation. She is not interested in any changes to her stimulator today. She has not yet started physical therapy, and does not have interest in it. She hydrates with water and pomegranate juice, though not a frequently as she should. She denies dizziness or issues with sleep. She occasionally wakes up at night feeling dystonic (in her L foot) and will take 2 x 1/4 tablets of carbidopa-levodopa. She continues to get support from a BUILDING ARCHITECTURAL DESIGNER 13 hours per week. She denies episodes of choking, endorses occasional dysphagia. She did obtain hearing aids, but is having trouble getting them to function properly, is working with insurance to find out where she can go to get them fixed. She endorses slight pain in her neck since her re-implantation surgery in October. APTRICIA SORIANO MD [address] [place] [address], [phone], [facility] 09/11/2024 19:43:31 12/12/2024 text/html Pleasant 44 year old woman with GBA 7 with a history of young-onset PD with DBS following up today for interrogation of LEFT/RIGHT STN. LEFT STN was explanted due to an infection in October 2023. PD was diagnosed in 2001 at the age of 22 y. She continues to be excessively sensitive to PD meds due to dyskinesias. She is also sensitive to DBS adjustments. She experience severe off periods of dystonia with pain and increased emotions.In the past the patient has been tried on amantadine,apokyn, Gocovri, Inbrija, Kynmobi, Mirapex, Neupro patch, Pramipexole, all having sides effects or not effective.Patient continues to have severe dyskinesias, balance issues with several falls. However, she is feels well-managed and appeared well-controlled on exam. We made no changes to her stimulation or medication regimen today. PATRICIA SORIANO MD [address] [place] [address], [phone], [facility] 12/12/2024 21:15:49 OBGyn Episode No OBEpisode recorded.
--- OUTSIDE RECORDS SUMMARY | 2025-01-01 13:05 | XMS_ITS | Continuity of Care Document ---
Author Organization [facility] Address [address] [place] [address] Care Team Providers Care Medical Physics Teacher Name Role Phone CHAMP CHICAS Referring Provider AMY RINALDI Primary Care Provider [phone] Assessment No assessment recorded. Plan of Treatment Reminders Order Date Submit Date Provider Last Modified By Organization Details Last Modified Time Details Appointments DBS 60 2024 11:30A M PATRICIA SORIANO MD Not available Not available Not available Lab None recorded. Referral None recorded. Procedures None recorded. Surgeries None recorded. Imaging None recorded. Medication Orders carbidopa 25 mg-levodo pa 100 mg tablet 2024 025 [facility] #[id number], [address] [place], [address], 12/12/2024 11:09:28 carbidopa ER 25 mg-levodo pa 100 mg tablet,ex tended release 2024 025 [facility] #[id number], [address] [place], [address], 12/12/2024 11:09:28 fludrocor tisone 0.1 mg tablet 2024 025 [facility] #[id number], [address] [place], [address], 12/12/2024 11:09:27 Patient TargetsNo targets recorded. Patient InstructionsNo instructions recorded. Reason for Referral None Reported. Problems Name Problem SNOMED Code Status Onset Date Resolution Date Notes Provider Name and Address Organization Details Recorded Time Parkinson's disease 82196456 Active 022 PATRICIA SORIANO MD [address] [place], [address], [facility] 2 13:00:06 Abnormal gait due to impairment of balance 173499070 Active 023 PATRICIA SORIANO MD [address] [place], [address], [facility] 3 21:42:19 Problem Notes None recorded. Procedures Surgical History Date Name Laterality Status Provider Name and Address Organization Details Recorded Time Generic Procedure Template completed Prema Reno NP [address] [place], [address], [facility] 02/10/2021 12:22:08 Imaging Results None recorded. Procedure [...] Updated DateTime 12/12/2024 147.32 cm 17.6 kg/m2 47549.76 g Isaiah Lowry PA - [facility] 12/12/2024 10:30:02 Social History None recorded. Functional Status None recorded. Mental Status None recorded. Family History Nothing Reported. Medical History Condition Response no past medical history reported Y Gynecological HistoryNo gynecological history recorded. Obstetrics History GPAL:G 0 P 0 0 0 0 Past Encounters Encounter ID Performer Location Encounter Start Date Encounter Closed Date Diagnosis/Indication Diagnosis SNOMED-CT Code Diagnosis ICD10 Code Diagnosis Note [id number] PATRICIA SORIANO MD [facility] [address] [place] [address] 12/12/2024 10:14:45 12/12/2024 15:02:11 Parkinson's disease 40555954 G20.B2 Pleasant 44 year old woman with [...] STNRECHARG EABLEBilat eral Neuro stimulator se1/e2ORGI NAL [facility]/ Neurosurge ry.REPLACE MENT OF LEFT e1/e2 due to infection- Dr George Reddy, Anel Rechargeab le on RIGHT, Dr George Rolston, BWHINITIAL PROGRAMMIN G andFINAL SETTINGL STN C+ 1-, 1.5mA/60/1 25 battery is 80%R STN: C+ 1- 3.3mA, 50,125 group b battery is at 40%PLANRev ere medical portal phone number given to re establish portal usage.Star dawson florinef 0.1mg one tablet in the am for one week trial, call on December 20 with an update.Ins tructed to take Blood pressure one hour after taking poContinue Sinemet throughout the day using 1/4 tablets every 3.5 hoursConti nue with good fluids daily including tomato or V-8 juice.Cont act [facility] caseworker to help with hearing aids that are [...] by Organization Details LastModified Time None Recorded Payers Encounter Date Sequence Insurance Name Policy Number Policy Mendieta Covered Member ID Mendieta Member ID Guarantor Name 12/12/2024 1 [facility] - DOS ON OR AFTER 2023 - ONE CARE (MEDICARE REPLACEMENT/ADV ANTAGE - HMO) Deja Sharma [id number] Deja Sharma Notes Date Note Type Note Provider Name and Address Organization Details Recorded Time 12/12/2024 text/html Pleasant 44 year old woman [...] or medication regimen today. PATRICIA SORIANO MD [address] [place] [address], [phone], [facility] 12/12/2024 21:15:49 OBGyn Episode No OBEpisode recorded.
== END 2025-01-01 10:47 | disposition home or self-care (01) ==
LOC: HO.CT 10:46
DX: M75.102 Unspecified rotator cuff tear or rupture of left shoulder, not specified as traumatic (principal)
CPT/HCPCS: 73200

== ENCOUNTER → 2025-01-01 10:48 | Outpatient (BNV) | payer OTHER, SELFPAY | PROVIDERS: Visit Provider Nuclear Medicine | DX: M89.8X1 Other specified disorders of bone, shoulder (principal); M85.612 Other cyst of bone, left shoulder | CPT/HCPCS: 73200 ==

== ENCOUNTER 2025-01-17 09:47 | Outpatient (REF) | payer OTHER, SELFPAY ==
--- NOTE | ~2025-01-17 | XR_ITS ---
EXAMINATION: XR LUMBOSACRAL SPINE CLINICAL INFORMATION: M54.9 - Dorsalgia, unspecified :frequent falls, rule out fracture. COMPARISON: None available. TECHNIQUE: Three views of the lumbosacral spine. FINDINGS: No significant scoliosis. Normal lordosis and alignment. No fracture, compression deformity, or suspicious bone lesion. Disc spaces appear normal. Facets appear normally aligned with normal appearance. Sacrum appears intact. SI joints appear normal. Cholecystectomy clips noted in the soft tissues. XR/XR lumbar spine 2-3V IMPRESSION: 1. Essentially normal radiographs of the lumbar spine. Electronically signed by: Camron Sommer MD 01/17/2025 10:43 AM EDT
--- NOTE | ~2025-01-17 | XR_ITS ---
EXAMINATION: XR HIP, LEFT CLINICAL INFORMATION: M16.12 - Unilateral primary osteoarthritis, left hip; frequent fall, rule out fracture. COMPARISON: None available. TECHNIQUE: AP pelvis, and 2 views of the left hip. FINDINGS: No fracture, dislocation, or suspicious bone lesion. Normal bone mineralization. Normal alignment. Mild osteoarthrosis of the left hip joint. No evidence of AVN. Normal-appearing right hip joint. Soft tissues appear normal. XR/XR hip LT min 2V IMPRESSION: 1. No acute bony abnormalities. 2. Very mild osteoarthrosis left hip joint. Electronically signed by: Camron Sommer MD 01/17/2025 10:41 AM EDT
--- NOTE | ~2025-01-17 | XR_ITS ---
EXAMINATION: XR KNEE, LEFT CLINICAL INFORMATION: M25.50 - Pain in unspecified joint; frequent fall, rule out fracture. COMPARISON: None available. TECHNIQUE: Four views of the left knee. FINDINGS: No fracture, dislocation, or suspicious bone lesion. Normal bone mineralization. Normal alignment. Joint spaces are preserved. No significant arthropathy. No significant joint effusion. Soft tissues appear normal. XR/XR knee LT 3V IMPRESSION: Normal left knee. Electronically signed by: Camron Sommer MD 01/17/2025 10:35 AM EDT
== END 2025-01-17 09:48 | disposition home or self-care (01) ==
LOC: HO.HOSX 09:47
PROVIDERS: Visit Provider Physical Medicine & Rehabilitation
DX: M25.552 Pain in left hip (principal); M25.562 Pain in left knee; M54.9 Dorsalgia, unspecified; M25.50 Pain in unspecified joint; R29.6 Repeated falls; M16.12 Unilateral primary osteoarthritis, left hip
CPT/HCPCS: 72100; 73502; 73562; 99202

== ENCOUNTER 2025-01-17 09:47 | Outpatient (AMB) | payer OTHER, SELFPAY ==
[2025-01-17 10:04] VITALS: BMI 17.8
--- NOTE | 2025-01-17 10:04 | A.OFFVIS_ITS ---
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 States pain started less than a year ago and has not improved. Patient complains of groin pain, pain when walking up stairs and from sit to stand position.States she has had multiple falls. Denies numbness or tingling in toes. Hx of parkinson disease. Patient referred by [facility]. Allergies codeine [CODEINE] Allergy (Intermediate, Verified 01/17/25 10:08) Nausea and Vomiting erythromycin base [ERYTHROMYCIN BASE] Allergy (Intermediate, Verified 01/17/25 10:08) Nausea and Vomiting ibuprofen [From MOTRIN] Allergy (Intermediate, Verified 01/17/25 10:08) nausea and vomiting, hives Medication List - Last Reconciled 01/17/25 by Izzy Sanders MD albuterol sulfate 90 mcg/actuation (Ventolin HFA) 2 puffs inhalation QID PRN carbidopa-levodopa 25-100 mg 1 tab PO TID carbidopa-levodopa 25-100 mg ER 1 tab PO DAILY cholecalciferol (vitamin D3) 1,250 mcg PO QWEEK fluticasone propionate 220 mcg/actuation (Flovent HFA) 2 puffs inhalation BID polyethylene glycol 3350 (Miralax) 17 grams PO DAILY HPI Comments Details: History of Parkinson's, DBS, managed in [place]. Walks with walker. Tremors on legs. She couldn't sit down due to pain. Left groin going down to left leg. Goes from left knee to the cowan. No numbness. This has been ongoing for awhile. Falls frequently. No recent xray. Hip x-rays done 2022 was unremarkable. She was very uncomfortable, unable to sit, reporting frequent falls. She was then sent for urgent x-rays lumbar, hip, knee, left. Lumbar x-ray no fracture, disc space loss notable L3-4 and L4-5. Hip x-ray no fracture, shows decreased joint space bilateral, left worse. Left knee x-ray no fracture, decreased joint space. Await official reading. Patient has not been on spasticity or dystonia medications such as baclofen or tizanidine. Modified independent function level. [facility] Medical History (Updated 01/17/25 @ 11:02 by Izzy Sanders MD) Walker as ambulation aid Cataract Dyskinesia Dystonia Underweight Parkinson disease Nondiabetic gastroparesis IBS (irritable bowel syndrome) Hearing loss Asthma Surgical History Hx of tubal ligation History of Hx of cholecystectomy Social History (Updated 01/17/25 @ 10:09 by TONJA Stephenson) Are you a primary career transition specialist to a significant other at home: No Do you presently have visiting nurse or other home services: Yes ([employer] daily) Patient Tobacco Use Status: Never used Tobacco Current occupational status: unemployed and disabled 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 Walker. Very tender to touch in left GT. Tender along left ITB. No tenderness over SI joint, lumbar spine, groin, knee. Results Reviewed Results Reviewed: Ordering Physician: Eloisa Freeman Date of Service: 08/22/23 Procedure(s): XR hip LT w PEL1V Accession Number(s): [id number] cc: Eloisa Freeman; Physician,Unknown ~ EXAMINATION: XR HIP, LEFT CLINICAL INFORMATION: Pain after fall COMPARISON: None available. TECHNIQUE: Two views of the left hip. FINDINGS: Visualized portion of proximal left femur demonstrate no fracture. Left femoral head is well-seated within the acetabulum. Left femoral acetabular joint space is well-maintained. Pelvic ring is intact. Right hip is grossly unremarkable. Small pelvic calcifications are likely vascular in nature. XR/XR hip LT w PEL1V IMPRESSION: No fracture, dislocation or significant degenerative changes of the left hip. Assessment & Plan Assessment & Plan (1) Falls: Code(s): R29.6 - Repeated falls Category: Medical (2) Left hip pain: Code(s): M25.552 - Pain in left hip Category: Medical (3) Left knee pain: Code(s): M25.562 - Pain in left knee Category: Medical Qualifiers: Chronicity: chronic Qualified Code(s): M25.562 - Pain in left knee; G89.29 - Other chronic pain Plan History of Parkinson's, frequent falls, possibly dystonia/spasticity. Complaining of left hip pain. Focal tenderness over left GT, possibly bursitis. Urgent x-rays done today did not show any fractures. Await official reading. We will schedule her for left GT injection next Tuesday. Just waiting for official results before performing steroid injections. Considering giving her baclofen oral for the pain. Assessment and plan discussed with patient, and patient was agreeable. All questions were answered thoroughly. Total of 60 minutes spent today including chart review, results review, history taking, physical examination, discussion of assessment and plan, and coordinati on of care. Izzy Sanders MD, JED Board Certified, [place] [employer] and [employer] (ABPMR) Board Certified, [place] [employer] (ABEM) Orders: Orders XR lumbar spine 2-3V Today M25.552 - Pain in left hip, M25.562 - Pain in left knee, M54.9 - Dorsalgia, unspecified, R29.6 - Repeated falls XR pelvis min 3V Today M25.552 - Pain in left hip, M25.562 - Pain in left knee, R29.6 - Repeated falls XR hip LT min 2V Today M16.12 - Unilateral primary osteoarthritis, left hip, M25.552 - Pain in left hip, M25.562 - Pain in left knee, R29.6 - Repeated falls XR knee LT 3V Today M25.50 - Pain in unspecified joint, M25.552 - Pain in left hip, M25.562 - Pain in left knee, R29.6 - Repeated falls Coding Level of Care Code New Pt Level 5 (13510) Complex EM visit Add On G2211 Diagnoses Falls R29.6 Left hip pain M25.552 Chronic pain of left knee M25.562; G89.29 Chronicity: chronic
--- OUTSIDE RECORDS SUMMARY | 2025-01-17 11:06 | XMS_ITS | Data Portability ---
Author Organization [facility] Address [address] [address] Care Team Providers Care Retail Account Specialist Name Role Phone CHAMP CHICAS Referring Provider [phone] AMY RINALDI Primary Care Provider Assessment No assessment recorded. Plan of Treatment Reminders Order Date Submit Date Provider Last Modified By Organization Details Last Modified Time Details Appointments DBS 60 2024 11:30A M PATRICIA SORIANO MD Not available Not available Not available Lab None recorded. Referral physical therapist referral - gait and balance training 2023 024 [email or web address] Not available 08/16/2024 14:56:59 Procedures None recorded. Surgeries None recorded. Imaging None recorded. Medication Orders carbidopa 25 mg-levodo pa 100 mg tablet 2024 025 [facility]armacy #[id number], [address] [place], [address], 12/12/2024 11:09:28 carbidopa ER 25 mg-levodo pa 100 mg tablet,ex tended release 2024 025 [facility]/Pharmacy #[id number], [address] [place], [address], 12/12/2024 11:09:28 fludrocor tisone 0.1 mg tablet 2024 025 [facility]/Pharmacy #[id number], [address] [place], [address], 12/12/2024 11:09:27 carbidopa 25 mg-levodo pa 100 mg tablet 2023 024 [facility]/Pharmacy #[id number], [address] [facility] , [place], [address], 06/26/2024 14:00:09 Patient TargetsNo targets recorded. Patient InstructionsNo instructions recorded. Reason for Referral Physical Therapist Referral for Parkinson's disease gait and balance training Referring Physician: Patricia Soriano, Neurology, Encounter Date: 06/26/2024 Problems Name Problem SNOMED Code Status Onset Date Resolution Date Notes Provider Name and Address Organization Details Recorded Time Parkinson's disease 99938034 Active 022 PATRICIA SORIANO MD [address] [place] [address], [phone], [facility] 2 13:00:06 Abnormal gait due to impairment of balance 303958521 Active 023 PATRICIA SORIANO MD [address] [place] [address], [phone], [facility] 3 21:42:19 Problem Notes None recorded. Procedures Surgical History Date Name Laterality Status Provider Name and Address Organization Details Recorded Time Generic Procedure Template completed Prema Reno NP [address] [place] [address], [phone], [facility] 02/10/2021 12:22:08 Imaging Results None recorded. [...] Last Updated DateTime 147.32 cm 17.6 kg/m2 30706.7 6 g 118 mm[Hg] 66 mm[Hg] 104 mm[Hg] 68 mm[Hg] [facility] 4 13:12:04 Date Recorded Body height Body mass index (BMI) Body weight Provider Name and Address Organization Details Last Updated DateTime 12/12/2024 147.32 cm 17.6 kg/m2 30221.76 g Isaiah Pickenscone [facility] 12/12/2024 10:30:02 Date Recorded Systolic blood pressure Diastolic blood pressure Systolic blood pressure Diastolic blood pressure Provider Name and Address Organization Details Last Updated DateTime 06/26/2024 124 mm[Hg] 72 mm[Hg] 112 mm[Hg] 76 mm[Hg] Ugo Alexander [facility] 4 13:24:04 Social History None recorded. [...] SNOMED-CT Code Diagnosis ICD10 Code Diagnosis Note [id number] JAMAL BRADLEY MD [facility] [address] [place] [address] 07/09/2019 14:30:52 07/09/2019 16:23:12 Parkinson's disease 37519088 G20 [id number] JAMAL BRADLEY MD [facility] [address] [place] [phone] 11/06/2019 13:43:22 11/06/2019 15:48:14 Parkinson's disease 83772386 G20 [id number] JAMAL BRADLEY MD [facility] [address] [place] [phone] 12/14/2019 10:51:06 12/14/2019 12:00:32 Parkinson's disease 45991842 G20 [id number] JAMAL BRADLEY MD [facility] [address] [place] [address] 04/01/2020 10:00:15 04/01/2020 11:16:56 Parkinson's disease 39740855 G20 [id number] JAMAL BRADLEY MD [facility] [address] [place] [phone] 7 05/23/2020 09:54:14 05/23/2020 10:49:04 Parkinson's disease 11921895 G20 [id number] [facility] [address] [place] [phone] 08/22/2020 11:29:08 08/22/2020 12:57:40 Parkinson's disease 11440583 G20 [id number] JAMAL BRADLEY MD [facility] [address] [place] [phone] 7 11/26/2020 13:22:57 11/26/2020 15:06:36 [id number] MIGEUL Eaton [facility] [address] [place] [phone] 7 12/30/2020 11:40:48 12/30/2020 12:01:05 Parkinson's disease 72847205 G20 Acute uppe r respiratory infection 41308159 J06.9 *Order must be faxed to [facility] Patient Access Fax # * This order is for PRE-OP Testing Fever [id number] R50.9 *Order must be faxed to [facility] Patient Access Fax # * [id number] Prema Alethasa Shadia NP [facility] COVID-19 TESTING CLINIC [address] [facility], [address] [place] [address] 02/10/2021 11:16:13 04/17/2021 13:05:10 Viral screening 630999170 Z11.59 [id number] MIGUEL Eaton [facility] NEUROSURG [facility] OFFICE [address] [place] [phone] 02/27/2021 11:07:17 02/27/2021 12:15:27 Parkinson's disease 35294531 G20 [id number] JAMAL BRADLEY MD [facility] NEUROLOGY OFFICE [address] [place] [phone] 03/06/2021 10:58:16 03/06/2021 15:30:02 Parkinson's disease 49073131 G20 [id number] JAMAL BRADLEY MD [facility] NEUROLOGY OFFICE [address] [place] [phone] 07/15/2021 11:37:10 07/15/2021 13:39:08 Parkinson's disease 49985999 G20 Start taking Kynmobi when you feel off. It goes under the tongue. Kicks in in 10 minutes and lasts up to 90 minutes. You can take up to 5 times/day Continue Sinemet 25/100 1/4 t 6am and then when you wear off at 8am take Kynmobi [id number] JAAML BRADLEY MD [facility] [address] [facility] [address] [place] [phone] 07/28/2021 10:45:06 07/28/2021 15:41:32 Parkinson's disease 41238808 G20 [id number] JAMAL BRADLEY MD [facility] NEUROLOGY OFFICE [address] [place] [phone] 12/04/2021 10:48:20 12/04/2021 12:39:58 Parkinson's disease 62547259 G20 [id number] JAMAL BRADLEY MD [facility] NEUROLOGY OFFICE [address] [place] [phone] 03/19/2022 12:03:04 03/19/2022 15:12:23 Parkinson's disease 80418036 G20 [id number] CHRIS EVANS [facility] NEUROLOGY OFFICE [address] [place] [phone] 7 06/18/2022 13:05:18 07/09/2022 14:15:24 Parkinson's disease 83191870 G20 -Start Apokyn trial for off periods-Co ntinue Sinemet 25/100 1/4 tablet TID, encouraged regular dosing schedule-C ontinue Sinemet ER 2/100 1 tablet qHS-Contin ue current exercise regimen-Sp eech therapy offered, patient not interested at this time [id number] PATRICIA SORIANO MD [facility] NEUROLOGY OFFICE [address] [place] [phone] 08/18/2022 11:44:50 08/18/2022 12:57:44 Parkinson's disease 35503607 G20 This is a 40 yo woman [...] care and 45 min programmin g DBS. [id number] PATRICIA SORIANO MD [facility] NEUROLOGY OFFICE [address] [place] [phone] 12/01/2022 11:34:18 12/01/2022 14:27:49 Parkinson's disease 51124411 G20 This is a 42 year old [...] [employer] DBS STNBilater al Neuro stimulator se1/e2Bost [facility]/ Neurosurge ry. CURRENT SETTINGSRI GHT battery 6 [...] STN C+ 1-, 3V/40/110 MOCA: none todayBlood cblpderv51 /61 HR 73Weight 80 pounds PLANReduce Sinemet throughout the day using 1/4 tablets as she has been using and document the number of times taking Sinemet in a 24 hour period.Phy sical Therapy Outpatient : Evaluation and Treatment for Gait and balance training.C ontinue to stay well hydratedCa ll in one week or portal update.Fol low up in three months in [facility] Greater than 50% of this 45 min encounter was spent coordinati ng care and 45 min programmin g DBS. [id number] PATRICIA SORIANO MD [facility] NEUROLOGY OFFICE [address] [place] [address] 02/09/2023 12:10:39 02/09/2023 14:29:56 Parkinson's disease 94193697 G20 This is a 42 year old [...] father. Elizabeth Moore account rep her from [employer] to help with sensing and scanning.P esther [...] DBS STNBilater al Neuro stimulator se1/e2Bost on [facility]/ Neurosurge ry.CURRENT SETTINGSRI GHT battery 5 [...] present PLANBotox injections in this week at [facility] e Sinemet throughout the day using 1/4 tablets as she has been using and document the number of times taking Sinemet in a 24 hour period.Phy sical Therapy Outpatient : Evaluation and Treatment for Gait and balance training.C ontinue to stay well hydratedCa ll in one week or portal update.Fol low up in three months in [facility] Greater than 50% of this 60 min encounter was spent discussing PD and another 60 min was spent on DBS programmin g. Abnormal g ait due to impairment of balance [id number] R26.89 Patient with gait dysfunctio n. Will order PT. [id number] PATRICIA SORIANO MD [facility] [address] [facility] [address] [facility] [place] [address] 02/10/2023 13:18:54 02/14/2023 08:01:56 Parkinson's disease 90138042 G20 This is a 42 year old [...] DBS STNBilater al Neuro stimulator se1/e2Bost on [facility]/ Neurosurge ry. CURRENT SETTINGSRI GHT battery [...] update.Fol low up in three months in [facility] Greater than 50% of this 45 min encounter was spent coordinati ng care and 45 min programmin g DBS. [id number] PATRICIA SORIANO MD [facility] [address] [place] [address] 05/25/2023 11:31:48 05/25/2023 12:51:27 Parkinson's disease 79910067 G20 Pleasant 43 year old woman with [...] DBS STNBilater al Neuro stimulator se1/e2Bost on [facility]/ Neurosurge ry.CURRENT SETTINGSRI GHT battery 5 [...] up in five to six months in [facility] Greater than 50% of this 45 min encounter was spent coordinati ng care and 15 min interogati ng DBS. [id number] PATRICIA SORIANO MD [facility] NEUROLOGY OFFICE [address] [place] [address] 11/01/2023 12:08:44 11/01/2023 13:37:10 Parkinson's disease 34285078 G20.B2 Pleasant 43 year old woman with [...] DBS STNBilater al Neuro stimulator se1/e2Bost on [facility]/ Neurosurge ry.Battery at 5 Y 5 [...] up in five to six months in [facility] Greater than 50% of this 45 min encounter was spent coordinati ng care and 15 min programmin g DBS. [id number] PATRICIA SORIANO MD [facility] NEUROLOGY OFFICE [address] [place] [address] 01/17/2024 11:26:11 01/17/2024 12:36:49 Parkinson's disease 19085837 G20.B2 Pleasant 43 year old woman with [...] DBS STNBilater al Neuro stimulator se1/e2Bost on [facility]/ Neurosurge ry.Battery at 5 Y 5 [...] care and 30 min programmin g DBS. [id number] PATRICIA SORIANO MD [facility] NEUROLOGY OFFICE [address] [place] [address] 05/30/2024 13:20:57 05/30/2024 15:14:55 Parkinson's disease 39069777 G20.B2 Pleasant 44 year old woman with [...] STNRECHARG EABLEBilat eral Neuro stimulator se1/e2ORGI NAL [facility]/ Neurosurge ry.REPLACE MENT OF LEFT e1/e2 due to infection- Dr George Reddy, [facility] Re[facility] le on RIGHT, Dr George Reddy, [facility] CURRENT SETTINGSRI GHT battery 5 years anLEFT [...] C+ 1- 3.2mA, 60,125 group b Blood rwynnmjr63 /64 exkgrmd77/ 74 standing PLANContin ue Sinemet throughout the [...] min was spent on DBS programmin g. [id number] PATRICIA SORIANO MD [facility] [address] [place] [address] 06/26/2024 13:18:33 06/26/2024 14:05:49 Parkinson's disease 87506591 G20.B2 Pleasant 44 year old woman with [...] STNRECHARG EABLEBilat eral Neuro stimulator se1/e2ORGI NAL [facility]/ Neurosurge ry.REPLACE MENT OF LEFT e1/e2 due to infection- Dr George Reddy, [facility] Rechargeab le on RIGHT, Dr George Reddy, [facility] CURRENT SETTINGSRI GHT battery 5 years anLEFT [...] min was spent on DBS programmin g. [id number] PATRICIA SORIANO MD [facility] NEUROLOGY OFFICE [address] [place] [address] 09/11/2024 12:51:33 09/11/2024 16:00:57 Parkinson's disease 16595057 G20.B2 Pleasant 44 year old woman with [...] STNRECHARG EABLEBilat eral Neuro stimulator se1/e2ORGI NAL [facility]/ Neurosurge ry.REPLACE MENT OF LEFT e1/e2 due to infection- Dr George Reddy, [facility] Rechargeab le on RIGHT, Dr George Reddy, [facility] INITIAL PROGRAMMIN G and FINAL SETTINGL STN [...] 30 min was spent interogati ng DBS. [id number] PATRICIA SORIANO MD [facility] [address] [place] [address] 12/12/2024 10:14:45 12/12/2024 15:02:11 Parkinson's disease 44420495 G20.B2 Pleasant 44 year old woman with [...] STNRECHARG EABLEBilat eral Neuro stimulator se1/e2ORGI NAL [facility]/ Neurosurge ry.REPLACE MENT OF LEFT e1/e2 [...] tomato or V-8 juice.Cont act [facility] patient case coordinator to help with hearing aids that are [...] Mendieta Member ID Guarantor Name 01/17/2024 1 [facility] - DOS ON OR AFTER 2023 - ONE CARE (MEDICARE REPLACEMENT/ADV ANTAGE - HMO) Deja Edith [id number] Deja Bolanoskirt 05/30/2024 1 [facility] - DOS ON OR AFTER 2023 - ONE CARE (MEDICARE REPLACEMENT/ADV ANTAGE - HMO) Deja Edith [id number] Deja Edith 06/26/2024 1 [facility] - DOS ON OR AFTER 2023 - ONE CARE (MEDICARE REPLACEMENT/ADV ANTAGE - HMO) Deja Sharma [id number] Deja Edith 09/11/2024 1 [facility] - DOS ON OR AFTER 2023 - ONE CARE (MEDICARE REPLACEMENT/ADV ANTAGE - HMO) Deja Sharma [id number] Dejakimmie Sharma 12/12/2024 1 [facility] - DOS ON OR AFTER 2023 - ONE CARE (MEDICARE REPLACEMENT/ADV ANTAGE - HMO) Deja Edith [id number] Deja Edith Notes Date Note Type Note [...] her appointment with Dr. Reddy at the [facility] to 3PM today 01/16. Right leg with tremor, dyskinesia, eye closing all worse without the DBS. Last dose of sinemet was at 9:30 AM. Coordination and walking have been harder without the implantation though still ambulating independently. Had a fall in november 2023: folding laundry standing up walking back fell backwards and hit left side of head [facility] space [facility] healing well. [...] dies. February 02 MRI. PATRICIA SORIANO MD [address] [place] [address], [phone], [facility] 01/17/2024 20:48:49 05/30/2024 text/html Pleasant 44 year [...] of dystonia with pain and increased emotions [employer] [facility] account rep present for scanning and programming In the past the patient has been tried on amantadine,apokyn, Gocovri, Inbrija, Kynmobi, Mirapex, Neupro patch, Pramipexole, all having sides effects or not effective. Patient continues to have severe dyskinesias, balance issues with several falls. PATRICIA SORIANO MD [address] [place] [address], [phone], [facility] 06/04/2024 20:04:10 06/26/2024 text/html Pleasant 44 year [...] adjustments. Eron Jane, Senior Account Rep from [employer] present for brain sensing and live streaming, [...] to bed until 11am. 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 She denies episodes of choking, endorses occasional dysphagia. She did obtain hearing aids, but is having trouble getting them to function properly, is working with insurance to find out where she can go to get them fixed. She endorses slight pain in her neck since her re-implantation surgery in October. PATRICIA SORIANO MD [address] [place] [address], [phone], [facility] 09/11/2024 19:43:31 12/12/2024 text/html Pleasant 44 year [...] or medication regimen today. PATRICIA SORIANO MD [address] [place] [address], [phone], [facility] 12/12/2024 21:15:49 OBGyn Episode No OBEpisode recorded.
== END 2025-01-17 10:46 | disposition home or self-care (01) ==
LOC: HO.HOS 09:48
PROVIDERS: Visit Provider Physical Medicine & Rehabilitation
DX: R29.6 Repeated falls (principal); M16.12 Unilateral primary osteoarthritis, left hip; M25.562 Pain in left knee; G89.29 Other chronic pain
CPT/HCPCS: 99205; G2211

== ENCOUNTER → 2025-01-17 10:21 | Outpatient (BNV) | payer OTHER, SELFPAY | PROVIDERS: Visit Provider Radiology Diagnostic Radiology | DX: M16.12 Unilateral primary osteoarthritis, left hip (principal); M54.50 Low back pain, unspecified; M25.562 Pain in left knee; W19.XXXA Unspecified fall, initial encounter | CPT/HCPCS: 72100; 73502; 73562 ==

== ENCOUNTER 2025-01-22 11:55 | Outpatient (AMB) | payer OTHER, SELFPAY ==
--- NOTE | 2025-01-22 11:59 | MHC.OFFVIS ---
Intake Visit Reasons: Inj-LT hip bursa inj Intake Note: Deja 44 year old female who presents today for a left hip bursa injection. Allergies codeine [CODEINE] Allergy (Intermediate, Verified 01/22/25 12:04) Nausea and Vomiting erythromycin base [ERYTHROMYCIN BASE] Allergy (Intermediate, Verified 01/22/25 12:04) Nausea and Vomiting ibuprofen [From MOTRIN] Allergy (Intermediate, Verified 01/22/25 12:04) nausea and vomiting, hives PFSH Medical History (Updated 01/22/25 @ 12:22 by Izzy Sanders MD) Walker as ambulation aid Cataract Dyskinesia Dystonia Underweight Parkinson disease Nondiabetic gastroparesis IBS (irritable bowel syndrome) Hearing loss Asthma Surgical History Hx of tubal ligation History of Hx of cholecystectomy Social History Are you a primary critical care unit nurse to a significant other at home: No Do you presently have visiting nurse or other home services: Yes ([employer] daily) Patient Tobacco Use Status: Never used Tobacco Current occupational status: unemployed and disabled 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 Patient lies on right unaffected side with lower leg flexed and upper leg extended. Tender area over the left greater trochanter is identified and marked. Area is cleansed with betadine solution. Using a 27 gauge needle, 3 ml of 2% lidocaine is injected, with the needle perpendicular to center of tender area. Then, using a spinal needle, 40 mg Kenalog is injected perpendicularly at center of tender area and slightly touching bone of greater trochanter. Patient tolerated procedure well without complications. Post-injection instructions given. 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 Assessment and plan discussed with patient, and patient was agreeable. All questions were answered thoroughly. Follow up on month. Izzy Sanders MD, JED Board Certified, [place] [employer] and Rehabilitation (ABPMR) Board Certified, [place] Board of Electrodiagnostic Medicine (ABEM) Orders: Orders AMB Joint Injection/Aspiration Today M70.62 - Trochanteric bursitis, left hip Medications: New Kenalog (triamcinolone acetonide) 40 mg intrabursal ONCE 1 mL 0RF NS M70.62 - Trochanteric bursitis, left hip Coding Level of Care Code Procedure Only Diagnoses Trochanteric bursitis of left hip M70.62 CPT Codes Coding - 58241 Large joint: 99573 - Large joint ([id number])
--- OUTSIDE RECORDS SUMMARY | 2025-01-22 14:44 | XMS_ITS | Data Portability ---
Author Organization [facility] UROLOGY Address [address] [address] Care Team Providers Care Audit Clerks Supervisor Name Role Phone CHAMP CHICAS Referring Provider AMY RINALDI Primary Care Provider [phone] Assessment No assessment recorded. Plan of Treatment Reminders Order Date Submit Date Provider Last Modified By Organization Details Last Modified Time Details Appointments DBS 60 2024 11:30A M PATRICIA SORIANO MD Not available Not available Not available Lab None recorded. Referral physical therapist referral - gait and balance training 2023 024 [email or web address] Not available 08/16/2024 14:56:59 Procedures None recorded. Surgeries None recorded. Imaging None recorded. Medication Orders carbidopa 25 mg-levodo pa 100 mg tablet 2024 025 [facility]armacy #[id number], [address] [place], [address], 12/12/2024 11:09:28 carbidopa ER 25 mg-levodo pa 100 mg tablet,ex tended release 2024 025 [facility]/Pharmacy #[id number], [address] [place], [address], 12/12/2024 11:09:28 fludrocor tisone 0.1 mg tablet 2024 025 [facility]armacy #[id number], [address] [place], [address], 12/12/2024 11:09:27 carbidopa 25 mg-levodo pa 100 mg tablet 2023 024 [facility]armacy #[id number], [address] [facility] , [place], [address], 06/26/2024 14:00:09 Patient TargetsNo targets recorded. Patient InstructionsNo instructions recorded. Reason for Referral Physical Therapist Referral for Parkinson's disease gait and balance training Referring Physician: Patricia Soriano, Neurology, Encounter Date: 06/26/2024 Problems Name Problem SNOMED Code Status Onset Date Resolution Date Notes Provider Name and Address Organization Details Recorded Time Parkinson's disease 99192835 Active 022 PATRICIA SORIANO MD [address] [place] [address], [phone], [facility] 2 13:00:06 Abnormal gait due to impairment of balance 685488007 Active 023 PATRICIA SORIANO MD [address] [place] [address], [phone], [facility] 3 21:42:19 Problem Notes None recorded. Procedures Surgical History Date Name Laterality Status Provider Name and Address Organization Details Recorded Time Generic Procedure Template completed Prema Reno NP [address] [place] [address], [phone], [facility] 02/10/2021 12:22:08 Imaging Results None [...] Last Updated DateTime 147.32 cm 17.6 kg/m2 05684.7 6 g 118 mm[Hg] 66 mm[Hg] 104 mm[Hg] 68 mm[Hg] [facility] 4 13:12:04 Date Recorded Body height Body mass index (BMI) Body weight Provider Name and Address Organization Details Last Updated DateTime 12/12/2024 147.32 cm 17.6 kg/m2 46194.76 g Isaiah Pickenscone [facility] 12/12/2024 10:30:02 Date Recorded Systolic blood pressure Diastolic blood pressure Systolic blood pressure Diastolic blood pressure Provider Name and Address Organization Details Last Updated DateTime 06/26/2024 124 mm[Hg] 72 mm[Hg] 112 mm[Hg] 76 mm[Hg] Ugo Alexander [facility] 4 13:24:04 Social History None recorded. [...] SNOMED-CT Code Diagnosis ICD10 Code Diagnosis Note [id number] JAMAL BRADLEY MD [facility] [address] [place] [address] 07/09/2019 14:30:52 07/09/2019 16:23:12 Parkinson's disease 73243373 G20 [id number] JAMAL BRADLEY MD [facility] [address] [place] [phone] 11/06/2019 13:43:22 11/06/2019 15:48:14 Parkinson's disease 12364553 G20 [id number] JAMAL BRADLEY MD [facility] [address] [place] [address] 12/14/2019 10:51:06 12/14/2019 12:00:32 Parkinson's disease 62586737 G20 [id number] JAMAL RBADLEY MD [facility] [address] [place] [address] 04/01/2020 10:00:15 04/01/2020 11:16:56 Parkinson's disease 82168800 G20 [id number] JAMAL BRADLEY MD [facility] [address] [place] [address] 7 05/23/2020 09:54:14 05/23/2020 10:49:04 Parkinson's disease 91658966 G20 [id number] [facility] [address] [place] [phone] 7 08/22/2020 11:29:08 08/22/2020 12:57:40 Parkinson's disease 45601653 G20 [id number] JAMAL BRADLEY MD [facility] [address] [place] [phone] 11/26/2020 13:22:57 11/26/2020 15:06:36 [id number] MIGUEL Eaton [facility] [address] [place] [phone] 12/30/2020 11:40:48 12/30/2020 12:01:05 Parkinson's disease 61081435 G20 Acute uppe r respiratory infection 30489617 J06.9 *Order must be faxed to [facility] Patient Access Fax # * This order is for PRE-OP Testing Fever [id number] R50.9 *Order must be faxed to [facility] Patient Access Fax # * [id number] Prema Alethasa Shadia NP [facility] COVID-19 TESTING CLINIC [address] [facility], [address] [place] [address] 02/10/2021 11:16:13 04/17/2021 13:05:10 Viral screening 046440659 Z11.59 [id number] MIGUEL Eaton [facility] [address] [place] [phone] 02/27/2021 11:07:17 02/27/2021 12:15:27 Parkinson's disease 61891098 G20 [id number] JAMAL BRADLEY MD [facility] [address] [place] [phone] 03/06/2021 10:58:16 03/06/2021 15:30:02 Parkinson's disease 72186307 G20 [id number] JAMAL BRADLEY MD [facility] [address] [place] [phone] 07/15/2021 11:37:10 07/15/2021 13:39:08 Parkinson's disease 47687601 G20 Start taking Kynmobi when you feel off. It goes under the tongue. Kicks in in 10 minutes and lasts up to 90 minutes. You can take up to 5 times/day Continue Sinemet 25/100 1/4 t 6am and then when you wear off at 8am take Kynmobi [id number] JAMAL BRADLEY MD [facility] [address] [facility] [address] [place] [phone] 07/28/2021 10:45:06 07/28/2021 15:41:32 Parkinson's disease 96490050 G20 [id number] JAMAL BRADLEY MD [facility] [address] [place] [phone] 12/04/2021 10:48:20 12/04/2021 12:39:58 Parkinson's disease 86251883 G20 [id number] JAMAL BRADLEY MD [facility] OFF[facility] [address] [place] [address] 03/19/2022 12:03:04 03/19/2022 15:12:23 Parkinson's disease 99829741 G20 [id number] CHRIS EVANS [facility] [address] [place] [address] 7 06/18/2022 13:05:18 07/09/2022 14:15:24 Parkinson's disease 27501312 G20 -Start Apokyn trial for off periods-Co ntinue Sinemet 25/100 1/4 tablet TID, encouraged regular dosing schedule-C ontinue Sinemet ER 2/100 1 tablet qHS-Contin ue current exercise regimen-Sp eech therapy offered, patient not interested at this time [id number] PATRICIA SORIANO MD [facility] OFF[facility] [address] [place] [phone] 7 08/18/2022 11:44:50 08/18/2022 12:57:44 Parkinson's disease 59401881 G20 This is a 40 yo woman [...] care and 45 min programmin g DBS. [id number] PATRICIA SORIANO MD [facility] OFF[facility] [address] [place] [phone] 12/01/2022 11:34:18 12/01/2022 14:27:49 Parkinson's disease 20543733 G20 This is a 42 year old [...] MEDTRONIC DBS STNBilater al Neuro stimulator se1/e2Bost [facility]/ Neurosurge ry. CURRENT SETTINGSRI GHT battery [...] STN C+ 1-, 3V/40/110 MOCA: none todayBlood [id number] /61 HR 73Weight 80 pounds PLANReduce Sinemet throughout the day using 1/4 tablets as she has been using and document the number of times taking Sinemet in a 24 hour period.Phy sical Therapy Outpatient : Evaluation and Treatment for Gait and balance training.C ontinue to stay well hydratedCa ll in one week or portal update.Fol low up in three months in [facility] Greater than 50% of this 45 min encounter was spent coordinati ng care and 45 min programmin g DBS. [id number] PATRICIA SORIANO MD [facility] [address] [place] [address] 02/09/2023 12:10:39 02/09/2023 14:29:56 Parkinson's disease 30331489 G20 This is a 42 year old [...] father. Elizabeth Moore account rep her from [employer] to help with sensing and scanning.P esther [...] DBS STNBilater al Neuro stimulator se1/e2Bost on [facility]/ Neurosurge ry.CURRENT SETTINGSRI GHT battery 5 years [...] present PLANBotox injections in this week at [facility] e Sinemet throughout the day using 1/4 tablets as she has been using and document the number of times taking Sinemet in a 24 hour period.Phy sical Therapy Outpatient : Evaluation and Treatment for Gait and balance training.C ontinue to stay well hydratedCa ll in one week or portal update.Fol low up in three months in [facility] Greater than 50% of this 60 min encounter was spent discussing PD and another 60 min was spent on DBS programmin g. Abnormal g ait due to impairment of balance 727525102 R26.89 Patient with gait dysfunctio n. Will order PT. [id number] PATRICIA SORIANO MD [facility] [address] [facility] [place] [address] 02/10/2023 13:18:54 02/14/2023 08:01:56 Parkinson's disease 24512741 G20 This is a 42 year old [...] DBS STNBilater al Neuro stimulator se1/e2Bost on [facility]/ Neurosurge ry. CURRENT SETTINGSRI GHT battery 6 [...] update.Fol low up in three months in [facility] Greater than 50% of this 45 min encounter was spent coordinati ng care and 45 min programmin g DBS. [id number] PATRICIA SORIANO MD [facility] [address] [place] [address] 05/25/2023 11:31:48 05/25/2023 12:51:27 Parkinson's disease 73093324 G20 Pleasant 43 year old woman with [...] DBS STNBilater al Neuro stimulator se1/e2Bost on [facility]/ Neurosurge ry.CURRENT SETTINGSRI GHT battery [...] up in five to six months in [facility] Greater than 50% of this 45 min encounter was spent coordinati ng care and 15 min interogati ng DBS. [id number] PATRICIA SORIANO MD [facility] OFF[facility] [address] [place] [address] 11/01/2023 12:08:44 11/01/2023 13:37:10 Parkinson's disease 71413968 G20.B2 Pleasant 43 year old woman with [...] DBS STNBilater al Neuro stimulator se1/e2Bost on [facility]/ Neurosurge ry.Battery at 5 Y 5 mosUpcomin [...] up in five to six months in [facility] Greater than 50% of this 45 min encounter was spent coordinati ng care and 15 min programmin g DBS. [id number] PATRICIA SORIANO MD [facility] OFF[facility] [address] [place] [address] 01/17/2024 11:26:11 01/17/2024 12:36:49 Parkinson's disease 51983078 G20.B2 Pleasant 43 year old woman with [...] DBS STNBilater al Neuro stimulator se1/e2Bost on [facility]/ Neurosurge ry.Battery at 5 Y 5 mosUpcomin [...] care and 30 min programmin g DBS. [id number] PATRICIA SORIANO MD [facility] OFFICE [address] [place] [address] 05/30/2024 13:20:57 05/30/2024 15:14:55 Parkinson's disease 29610477 G20.B2 Pleasant 44 year old woman with [...] STNRECHARG EABLEBilat eral Neuro stimulator se1/e2ORGI [facility]/ Neurosurge ry.REPLACE MENT OF LEFT e1/e2 due to infection- Dr George Reddy, [facility] Rechargeab le on RIGHT, Dr George Reddy, [facility] CURRENT SETTINGSRI GHT battery 5 years [...] C+ 1- 3.2mA, 60,125 group b Blood /64 [id number]/ 74 standing PLANContin ue Sinemet throughout the [...] min was spent on DBS programmin g. [id number] PATRICIA SORIANO MD [facility] [address] [place] [address] 06/26/2024 13:18:33 06/26/2024 14:05:49 Parkinson's disease 19840998 G20.B2 Pleasant 44 year old woman with [...] STNRECHARG EABLEBilat eral Neuro stimulator se1/e2ORGI [facility]/ Neurosurge ry.REPLACE MENT OF LEFT e1/e2 due to infection- Dr George Reddy, [facility] Rechargeab le on RIGHT, Dr George Reddy, [facility] CURRENT SETTINGSRI GHT battery 5 years [...] min was spent on DBS programmin g. [id number] PATRICIA SORIANO MD [facility] OFF[facility] [address] [place] [address] 09/11/2024 12:51:33 09/11/2024 16:00:57 Parkinson's disease 98572676 G20.B2 Pleasant 44 year old woman with [...] STNRECHARG EABLEBilat eral Neuro stimulator se1/e2ORGI [facility]/ Neurosurge ry.REPLACE MENT OF LEFT e1/e2 due to infection- Dr George Reddy, [facility] Rechargeab le on RIGHT, Dr George Reddy, [facility] INITIAL PROGRAMMIN G and FINAL SETTINGL [...] 30 min was spent interogati ng DBS. [id number] PATRICIA SORIANO MD [facility] [address] [facility] [place] [address] 12/12/2024 10:14:45 12/12/2024 15:02:11 Parkinson's disease 80509432 G20.B2 Pleasant 44 year old woman with [...] STNRECHARG EABLEBilat eral Neuro stimulator se1/e2ORGI [facility]/ Neurosurge ry.REPLACE MENT OF LEFT e1/e2 [...] tomato or V-8 juice.Cont act [facility] bottle caser to help with hearing aids that are [...] [place] Member ID Guarantor Name 01/17/2024 1 [facility] DOS ON OR AFTER 2023 - ONE CARE (MEDICARE REPLACEMENT/ADV ANTAGE - HMO) Deja Edith [id number] Deja Bolanoskirt 05/30/2024 1 [facility] - DOS ON OR AFTER 2023 - ONE CARE (MEDICARE REPLACEMENT/ADV ANTAGE - HMO) Deja Edith [id number] Deja Edith 06/26/2024 1 [facility] - DOS ON OR AFTER 2023 - ONE CARE (MEDICARE REPLACEMENT/ADV ANTAGE - HMO) Deja Sharma [id number] Deja Edith 09/11/2024 1 [facility] - DOS ON OR AFTER 2023 - ONE CARE (MEDICARE REPLACEMENT/ADV ANTAGE - HMO) Deja Sharma [id number] Dejakimmie Sharma 12/12/2024 1 [facility] - DOS ON OR AFTER 2023 - ONE CARE (MEDICARE REPLACEMENT/ADV ANTAGE - HMO) Deja Edith [id number] Deja Edith Notes Date Note Type Note [...] her appointment with Dr. Reddy at the [facility] to 3PM today 01/16. Right leg with tremor, dyskinesia, eye closing all worse without the DBS. Last dose of sinemet was at 9:30 AM. Coordination and walking have been harder without the implantation though still ambulating independently. Had a fall in november 2023: folding laundry standing up walking back fell backwards and hit left side [facility] head [facility] healing well. [...] dies. February 02 MRI. PATRICIA SORIANO MD [address] [place] [address], [phone], [facility] 01/17/2024 20:48:49 05/30/2024 text/html Pleasant [...] of dystonia with pain and increased emotions S5 [facility] account rep present for scanning and programming In the past the patient has been tried on amantadine,apokyn, Gocovri, Inbrija, Kynmobi, Mirapex, Neupro patch, Pramipexole, all having sides effects or not effective. Patient continues to have severe dyskinesias, balance issues with several falls. PATRICIA SORIANO MD [address] [place] [address], [phone], [facility] 06/04/2024 20:04:10 06/26/2024 text/html Pleasant [...] adjustments. Eron Jane, Senior Account Rep from [employer] present for brain sensing and live streaming, [...] to bed until 11am. 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 She denies episodes of choking, endorses occasional dysphagia. She did obtain hearing aids, but is having trouble getting them to function properly, is working with insurance to find out where she can go to get them fixed. She endorses slight pain in her neck since her re-implantation surgery in October. PATRICIA SORIANO MD [address] [place] [address], [phone], [facility] 09/11/2024 19:43:31 12/12/2024 text/html Pleasant [...] or medication regimen today. PATRICIA SORIANO MD [address] [place] [address], [phone], [facility] 12/12/2024 21:15:49 OBGyn Episode No OBEpisode recorded.
== END 2025-01-22 12:25 | disposition home or self-care (01) ==
LOC: HO.HOS 11:55
PROVIDERS: Visit Provider Physical Medicine & Rehabilitation
DX: M70.62 Trochanteric bursitis, left hip (principal)
CPT/HCPCS: 20610

== ENCOUNTER → 2025-01-22 11:55 | Outpatient (BNVA) | payer OTHER, SELFPAY | PROVIDERS: Visit Provider Physical Medicine & Rehabilitation | DX: M70.62 Trochanteric bursitis, left hip (principal) | CPT/HCPCS: 20610; J2003; J3301 ==

== ENCOUNTER 2025-01-23 14:38 | Outpatient (AMB) | payer OTHER, SELFPAY ==
[2025-01-23 14:42] VITALS: BMI 16.8
--- NOTE | 2025-01-23 14:42 | MHC.OFFVIS ---
Vital Signs 01/23/25 14:42 Height 4 ft 11 in Weight 83 lb BMI 16.8 Handedness Right Intake Visit Reasons: OV- LT shoulder CT review Intake Note: Deja is a 44 year old right hand dominant female who presents today for a follow up visit to review her left shoulder CT. CT shoulder LT wo IV con 01/02/25 Impression: No acute findings. Os acromiale. Allergies codeine [CODEINE] Allergy (Intermediate, Verified 01/23/25 14:43) Nausea and Vomiting erythromycin base [ERYTHROMYCIN BASE] Allergy (Intermediate, Verified 01/23/25 14:43) Nausea and Vomiting ibuprofen [From MOTRIN] Allergy (Intermediate, Verified 01/23/25 14:43) nausea and vomiting, hives HPI HPI OV- LT shoulder CT review: Details: Deja is a 44 year old righthand dominant female who presents today for a follow up visit to review her left shoulder CT. CT shoulder LT wo IV con 01/02/25 Impression: No acute findings. Os acromiale. 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 Physical Exam Vital Signs: BMI result Body Mass Index 16.8 Office Procedures Joint Inj/Aspir; Non-Pain Clin Joint Injection/Drain Prep: site was prepped using aseptic technique and injection warnings given Approach Used: posterolateral Procedure: The patient tolerated the procedure well and there was some relief with the local anesthesia Shoulders, Hips, Knees, Shoulder Injection Large joint 17070: Left Shoulder Coding Procedure code (CPT) selection complete Assessment & Plan Assessment & Plan (1) Painful arc syndrome of left shoulder: Code(s): M75.102 - Unspecified rotator cuff tear or rupture of left shoulder, not specified as traumatic Category: Medical (2) Left shoulder pain: Code(s): M25.512 - Pain in left shoulder Category: Medical Plan History of Present Illness The patient is a 44-year-old female presenting with shoulder pain requiring evaluation. Despite prior physical therapy, the pain persists. A CT scan was performed, revealing no acute abnormalities, though noted limitations prevented MRI evaluation. The patient previously received steroid injections in her hips without complications and denies diabetes. Described strength evaluation and range of motion for the bilateral shoulders were unremarkable, yet the pain continues, raising considerations for management with a steroid injection. No acute mechanical event onset was identified, and baseline functional limitations were not specified; rather, the patient?s history focuses on unresponsive pain to conservative therapy. Review of Systems - Musculoskeletal: Reports persistent shoulder pain, particularly in the left shoulder. Systems reviewed and are negative except as per HPI and below Physical Exam Left shoulder normal to inspection No erythema, edema, ecchymosis noted No tenderness to palpation anywhere in the left shoulder - Musculoskeletal- - Normal shoulder strength, empty can test 5/5 bilaterally. - Belly press 4/5 bilaterally. - Shoulder abduction to about 100 degrees bilaterally. - External rotation at about 80 degrees bilaterally. Results - CT scan: No acute abnormalities detected. Procedure - Steroid Injection in Left Shoulder: Consent was obtained from the patient for the procedure. The injection site was identified as below the acromion process in a soft spot, marked after appropriate preparation with cleaning solutions and cold spray. The procedure was successfully performed, and minimal bleeding was noted post-injection. Plan A steroid injection was administered into the shoulder to manage persistent pain that has not responded adequately to non-invasive therapies like physical therapy. The procedural aim is to alleviate symptoms without immediate follow-up unless pain remains after 8 weeks. If so, possible options include another injection or a specialist consultation. Post-procedural transient soreness is expected, and patients may take analgesics for relief during this period. Patient was informed and verbally consented to the use of an ambient scribe for clinic note documentation during this visit. Discussion Notes I evaluated Koki's shoulder and reviewed the normal findings from her CT scan. Since an MRI was unavailable, a steroid injection was advised for pain management. I discussed procedural details and ensured understanding of post-injection sensations, emphasizing ndow-poe-kubnizn analgesic options for anticipated pain relief post-lidocaine. Discussed risks and benefits of surgery, including but not limited to injury to blood vessels, nerves, tendons, bones, infection, or failure of injection to provide relief No immediate follow-up is necessary unless ongoing pain occurs after 8 weeks, prompting another appointment. After obtaining informed consent, I proceeded with the injection, noting minimal post-procedure bleeding and advising Koki to monitor for any unusual symptoms. Patient Instructions - Take Tylenol or ibuprofen as needed to manage soreness post-injection. - Monitor the injection site for signs of unusual bleeding or adverse reactions. - There is no immediate need for a follow-up appointment. - If shoulder pain persists for eight weeks, contact the office for further evaluation. - Be cautious with shoulder activities as directed. Coding Level of Care Code Est Pt Level 3 (23906) Diagnoses Painful arc syndrome of left shoulder M75.102 Left shoulder pain M25.512 CPT Codes Shoulders, Hips, Knees, - Shoulder Injection Large joint 69451: Left Shoulder ([id number])
--- OUTSIDE RECORDS SUMMARY | 2025-01-23 17:22 | XMS_ITS | Data Portability ---
Author Organization [facility] UROLOGY Address [address] [address] Care Team Providers Care Director Of Placement Name Role Phone CHAMP CHICAS Referring Provider AMY RINALDI Primary Care Provider [phone] Assessment No assessment recorded. Plan of Treatment Reminders Order Date Submit Date Provider Last Modified By Organization Details Last Modified Time Details Appointments DBS 60 2024 11:30A M PATRICIA SORIANO MD Not available Not available Not available Lab None recorded. Referral physical therapist referral - gait and balance training 2023 024 [email or web address] Not available 08/16/2024 14:56:59 Procedures None recorded. Surgeries None recorded. Imaging None recorded. Medication Orders carbidopa 25 mg-levodo pa 100 mg tablet 2024 025 [facility] #[id number], [address] [place], [address], 12/12/2024 11:09:28 carbidopa ER 25 mg-levodo pa 100 mg tablet,ex tended release 2024 025 [facility] #[id number], [address] [place], [address], 12/12/2024 11:09:28 fludrocor tisone 0.1 mg tablet 2024 025 [facility] #[id number], [address] [place], [address], 12/12/2024 11:09:27 carbidopa 25 mg-levodo pa 100 mg tablet 2023 024 [facility] #[id number], [address] [facility] , [place], [address], 06/26/2024 14:00:09 Patient TargetsNo targets recorded. Patient InstructionsNo instructions recorded. Reason for Referral Physical Therapist Referral for Parkinson's disease gait and balance training Referring Physician: Patricia Soriano, Neurology, Encounter Date: 06/26/2024 Problems Name Problem SNOMED Code Status Onset Date Resolution Date Notes Provider Name and Address Organization Details Recorded Time Parkinson's disease 27306979 Active 022 PATRICIA SORIANO MD [address] [place] [address], [phone], [facility] 2 13:00:06 Abnormal gait due to impairment of balance 938641631 Active 023 PATRICIA SORIANO MD [address] [place] [address], [phone], [facility] 3 21:42:19 Problem Notes None recorded. Procedures Surgical History Date Name Laterality Status Provider Name and Address Organization Details Recorded Time Generic Procedure Template completed Prema Reno NP [address] [place] [address], [phone], [facility] 02/10/2021 12:22:08 Imaging Results None recorded. [...] Last Updated DateTime 147.32 cm 17.6 kg/m2 10420.7 6 g 118 mm[Hg] 66 mm[Hg] 104 mm[Hg] 68 mm[Hg] [facility] 13:12:04 Date Recorded Body height Body mass index (BMI) Body weight Provider Name and Address Organization Details Last Updated DateTime 12/12/2024 147.32 cm 17.6 kg/m2 33033.76 g Isaiah Pickenscone [facility] 12/12/2024 10:30:02 Date Recorded Systolic blood pressure Diastolic blood pressure Systolic blood pressure Diastolic blood pressure Provider Name and Address Organization Details Last Updated DateTime 06/26/2024 124 mm[Hg] 72 mm[Hg] 112 mm[Hg] 76 mm[Hg] Ugo Alexander [facility] 4 13:24:04 Social History None recorded. [...] SNOMED-CT Code Diagnosis ICD10 Code Diagnosis Note [id number] JAMAL BRADLEY MD [facility] [address] [place] [address] 07/09/2019 14:30:52 07/09/2019 16:23:12 Parkinson's disease 01003566 G20 [id number] JAMAL BRADLEY MD [facility] [address] [place] [phone] 11/06/2019 13:43:22 11/06/2019 15:48:14 Parkinson's disease 71734094 G20 [id number] JAMAL BRADLEY MD [facility] [address] [place] [phone] 12/14/2019 10:51:06 12/14/2019 12:00:32 Parkinson's disease 71130077 G20 [id number] JAMAL BRADLEY MD [facility] [address] [place] [phone] 04/01/2020 10:00:15 04/01/2020 11:16:56 Parkinson's disease 25062076 G20 [id number] JAMAL BRADLEY MD [facility] [address] [place] [phone] 05/23/2020 09:54:14 05/23/2020 10:49:04 Parkinson's disease 74955943 G20 [id number] [facility] [address] [place] [phone] 08/22/2020 11:29:08 08/22/2020 12:57:40 Parkinson's disease 59488368 G20 [id number] JAMAL BRADLEY MD [facility] [address] [place] [phone] 11/26/2020 13:22:57 11/26/2020 15:06:36 [id number] MIGUEL Eaton [facility] [address] [place] [phone] 12/30/2020 11:40:48 12/30/2020 12:01:05 Parkinson's disease 41961251 G20 Acute uppe r respiratory infection [id number] J06.9 *Order must be faxed to [facility] Patient Access Fax # * This order is for PRE-OP Testing Fever [id number] R50.9 *Order must be faxed to [facility] Patient Access Fax # * [phone] Prema Alethasa Shadia NP [facility] [address] [facility], [address] [place] [address] 02/10/2021 11:16:13 04/17/2021 13:05:10 Viral screening 474214745 Z11.59 [id number] MIGUEL Eaton [facility] [address] [place] [phone] 02/27/2021 11:07:17 02/27/2021 12:15:27 Parkinson's disease 97134845 G20 [id number] JAMAL BRADLEY MD [facility] NEUROLOGY OFFICE [address] [place] [phone] 03/06/2021 10:58:16 03/06/2021 15:30:02 Parkinson's disease 82792162 G20 [id number] JAMAL BRADLEY MD [facility] NEUROLOGY OFFICE [address] [place] [phone] 07/15/2021 11:37:10 07/15/2021 13:39:08 Parkinson's disease 88386330 G20 Start taking Kynmobi when you feel off. It goes under the tongue. Kicks in in 10 minutes and lasts up to 90 minutes. You can take up to 5 times/day Continue Sinemet 25/100 1/4 t 6am and then when you wear off at 8am take Kynmobi [id number] JAMAL BRADLEY MD [facility] [address] [facility] [address] [place] [phone] 07/28/2021 10:45:06 07/28/2021 15:41:32 Parkinson's disease 14400441 G20 [id number] JAMAL BRADLEY MD [facility] NEUR[facility] OFFICE [address] [place] [phone] 12/04/2021 10:48:20 12/04/2021 12:39:58 Parkinson's disease 74947163 G20 [id number] JAMAL BRADLEY MD [facility] NE[facility] OFFICE [address] [place] [phone] 03/19/2022 12:03:04 03/19/2022 15:12:23 Parkinson's disease 53962952 G20 [id number] CHRIS EVANS [facility] NE[facility] OFFICE [address] [place] [phone] 06/18/2022 13:05:18 07/09/2022 14:15:24 Parkinson's disease 19880344 G20 -Start Apokyn trial for off periods-Co ntinue Sinemet 25/100 1/4 tablet TID, encouraged regular dosing schedule-C ontinue Sinemet ER 2/100 1 tablet qHS-Contin ue current exercise regimen-Sp eech therapy offered, patient not interested at this time [id number] PATRICIA SORIANO MD [facility] NEUROLOGY OFFICE [address] [place] [phone] 08/18/2022 11:44:50 08/18/2022 12:57:44 Parkinson's disease 60918100 G20 This is a 40 yo woman [...] care and 45 min programmin g DBS. [id number] PATRICIA SORIANO MD [facility] OFFICE [address] [place] [phone] 12/01/2022 11:34:18 12/01/2022 14:27:49 Parkinson's disease 66568586 G20 This is a 42 year old [...] [employer] DBS STNBilater al Neuro stimulator se1/e2Bost [facility][note 3]/ Neurosurge ry. CURRENT SETTINGSRI GHT battery 6 [...] STN C+ 1-, 3V/40/110 MOCA: none todayBlood bvwsiocn23 /61 HR 73Weight 80 pounds PLANReduce Sinemet throughout the day using 1/4 tablets as she has been using and document the number of times taking Sinemet in a 24 hour period.Phy sical Therapy Outpatient : Evaluation and Treatment for Gait and balance training.C ontinue to stay well hydratedCa ll in one week or portal update.Fol low up in three months in [facility] Greater than 50% of this 45 min encounter was spent coordinati ng care and 45 min programmin g DBS. [id number] PATRICIA SORIANO MD [facility] NEUROLOGY OFFICE [address] [place] [address] 02/09/2023 12:10:39 02/09/2023 14:29:56 Parkinson's disease 58091157 G20 This is a 42 year old [...] father. Elizabeth Moore account rep her from [employer] to help with sensing and scanning.P esther [...] DBS STNBilater al Neuro stimulator se1/e2Bost on [facility]/ Neurosurge ry.CURRENT SETTINGSRI GHT battery 5 [...] present PLANBotox injections in this week at [facility] e Sinemet throughout the day using 1/4 tablets as she has been using and document the number of times taking Sinemet in a 24 hour period.Phy sical Therapy Outpatient : Evaluation and Treatment for Gait and balance training.C ontinue to stay well hydratedCa ll in one week or portal update.Fol low up in three months in [facility] Greater than 50% of this 60 min encounter was spent discussing PD and another 60 min was spent on DBS programmin g. Abnormal g ait due to impairment of balance 998819779 R26.89 Patient with gait dysfunctio n. Will order PT. [id number] PATRICIA SORIANO MD [facility] [address] [facility] [place] [address] 02/10/2023 13:18:54 02/14/2023 08:01:56 Parkinson's disease 19783708 G20 This is a 42 year old [...] DBS STNBilater al Neuro stimulator se1/e2Bost on [facility]/ Neurosurge ry. CURRENT SETTINGSRI GHT battery [...] update.Fol low up in three months in [facility] Greater than 50% of this 45 min encounter was spent coordinati ng care and 45 min programmin g DBS. [id number] PATRICIA SORIANO MD [facility] [address] [place] [address] 05/25/2023 11:31:48 05/25/2023 12:51:27 Parkinson's disease 56412018 G20 Pleasant 43 year old woman with [...] DBS STNBilater al Neuro stimulator se1/e2Bost on [facility]/ Neurosurge ry.CURRENT SETTINGSRI GHT battery 5 [...] up in five to six months in [facility] Greater than 50% of this 45 min encounter was spent coordinati ng care and 15 min interogati ng DBS. [id number] PATRICIA SORIANO MD [facility] NEUROLOGY OFFICE [address] [place] [address] 11/01/2023 12:08:44 11/01/2023 13:37:10 Parkinson's disease 17599274 G20.B2 Pleasant 43 year old woman with [...] DBS STNBilater al Neuro stimulator se1/e2Bost on [facility]/ Neurosurge ry.Battery at 5 Y 5 [...] up in five to six months in [facility] Greater than 50% of this 45 min encounter was spent coordinati ng care and 15 min programmin g DBS. [id number] PATRICIA SORIANO MD [facility] NE[facility] OFFICE [address] [place] [address] 01/17/2024 11:26:11 01/17/2024 12:36:49 Parkinson's disease 60807369 G20.B2 Pleasant 43 year old woman with [...] DBS STNBilater al Neuro stimulator se1/e2Bost on [facility]/ Neurosurge ry.Battery at 5 Y 5 [...] care and 30 min programmin g DBS. [id number] PATRICIA SORIANO MD [facility] OFFICE [address] [place] [address] 05/30/2024 13:20:57 05/30/2024 15:14:55 Parkinson's disease 54933866 G20.B2 Pleasant 44 year old woman with [...] STNRECHARG EABLEBilat eral Neuro stimulator se1/e2ORGI [facility]/ Neurosurge ry.REPLACE MENT OF LEFT e1/e2 due to infection- [facility] George Reddy[facility] RIGHT, Dr George Reddy, [facility] CURRENT SETTINGSRI GHT battery 5 years anLEFT [...] C+ 1- 3.2mA, 60,125 group b Blood gczoipcl77 /64 tgtrewb64/ 74 standing PLANContin ue Sinemet throughout the [...] min was spent on DBS programmin g. [id number] PATRICIA SORIANO MD [facility] [address] [place] [address] 06/26/2024 13:18:33 06/26/2024 14:05:49 Parkinson's disease 05361617 G20.B2 Pleasant 44 year old woman with [...] STNRECHARG EABLEBilat eral Neuro stimulator se1/e2ORGI [facility]/ Neurosurge ry.REPLACE MENT OF LEFT e1/e2 due to infection- Dr George Reddy, [facility] Re[facility] on RIGHT, Dr George Reddy, [facility] CURRENT SETTINGSRI GHT battery 5 years anLEFT [...] min was spent on DBS programmin g. [id number] PATRICIA SORIANO MD [facility] [address] [place] [address] 09/11/2024 12:51:33 09/11/2024 16:00:57 Parkinson's disease 64348401 G20.B2 Pleasant 44 year old woman with [...] STNRECHARG EABLEBilat eral Neuro stimulator se1/e2ORGI [facility]/ Neurosurge ry.REPLACE MENT OF LEFT e1/e2 due to infection- Dr George Reddy, [facility] Re[facility] on RIGHT, Dr George Reddy, [facility] INITIAL PROGRAMMIN G and FINAL SETTINGL STN [...] 30 min was spent interogati ng DBS. [id number] PATRICIA SORIANO MD [facility] [address] [facility] [address] 12/12/2024 10:14:45 12/12/2024 15:02:11 Parkinson's disease 51522739 G20.B2 Pleasant 44 year old woman with [...] STNRECHARG EABLEBilat eral Neuro stimulator se1/e2ORGI [facility]/ Neurosurge ry.REPLACE MENT OF LEFT e1/e2 [...] tomato or V-8 juice.Cont act [facility] case manager to help with hearing aids that are [...] Mendieta Member ID Guarantor Name 01/17/2024 1 [facility] - DOS ON OR AFTER 2023 - ONE CARE (MEDICARE REPLACEMENT/ADV ANTAGE - HMO) Deja Edith [id number] Deja Bolanoskirt 05/30/2024 1 [facility] - DOS ON OR AFTER 2023 - ONE CARE (MEDICARE REPLACEMENT/ADV ANTAGE - HMO) Deja Edith [id number] Deja Edith 06/26/2024 1 [facility] - DOS ON OR AFTER 2023 - ONE CARE (MEDICARE REPLACEMENT/ADV ANTAGE - HMO) Deja Sharma [id number] Deja Edith 09/11/2024 1 [facility] - DOS ON OR AFTER 2023 - ONE CARE (MEDICARE REPLACEMENT/ADV ANTAGE - HMO) Deja Sharma [id number] Dejakimmie Sharma 12/12/2024 1 [facility] - DOS ON OR AFTER 2023 - ONE CARE (MEDICARE REPLACEMENT/ADV ANTAGE - HMO) Deja Edith [id number] Deja Edith Notes Date Note Type Note [...] her appointment with Dr. Reddy at the [facility] to 3PM today 01/16. Right leg with tremor, dyskinesia, eye closing all worse without the DBS. Last dose of sinemet was at 9:30 AM. Coordination and walking have been harder without the implantation though still ambulating independently. Had a fall in november 2023: folding laundry standing up walking back fell backwards and hit left side [facility] healing well. [...] dies. February 02 MRI. PATRICIA SORIANO MD [address] [place] [address], [phone], [facility] 01/17/2024 20:48:49 05/30/2024 text/html Pleasant 44 [...] of dystonia with pain and increased emotions [facility] account rep present for scanning and programming In the past the patient has been tried on amantadine,apokyn, Gocovri, Inbrija, Kynmobi, Mirapex, Neupro patch, Pramipexole, all having sides effects or not effective. Patient continues to have severe dyskinesias, balance issues with several falls. PATRICIA SORIANO MD [address] [place] [address], [phone], [facility] 06/04/2024 20:04:10 06/26/2024 text/html Pleasant 44 [...] adjustments. Eron Jane, Senior Account Rep from [employer] present for brain sensing and live streaming, [...] to bed until 11am. 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 She denies episodes of choking, endorses occasional dysphagia. She did obtain hearing aids, but is having trouble getting them to function properly, is working with insurance to find out where she can go to get them fixed. She endorses slight pain in her neck since her re-implantation surgery in October. PATRICIA SORIANO MD [address] [place] [address], [phone], [facility] 09/11/2024 19:43:31 12/12/2024 text/html Pleasant 44 [...] or medication regimen today. PATRICIA SORIANO MD [address] [place] [address], [phone], [facility] 12/12/2024 21:15:49 OBGyn Episode No OBEpisode recorded.
== END 2025-01-23 15:32 | disposition home or self-care (01) ==
LOC: HO.HOS 14:38
DX: M75.102 Unspecified rotator cuff tear or rupture of left shoulder, not specified as traumatic (principal); M25.512 Pain in left shoulder
CPT/HCPCS: 20610; 99213

== ENCOUNTER → 2025-01-23 14:38 | Outpatient (BNVA) | payer OTHER, SELFPAY | DX: M75.102 Unspecified rotator cuff tear or rupture of left shoulder, not specified as traumatic (principal); M25.512 Pain in left shoulder | CPT/HCPCS: 20610; 99212; J1010; J2003 ==

== ENCOUNTER 2025-04-05 10:46 | Outpatient (AMB) | payer OTHER, SELFPAY ==
--- NOTE | 2025-04-05 10:48 | MHC.OFFVIS ---
Intake Visit Reasons: OV- Left hip pain s/p bursa inj 01/22/25 Intake Note: Deja is a 45 year old female who presents today as a follow up of left hip pain s/p bursa injection 01/22/25. Patient states that mid to no relief from the last injection. Patient reports that for the past two months she has had increased pain and her hip has been Popping more frequently. Allergies codeine (CODEINE) Allergy (Intermediate, Verified 04/05/25 10:52) Nausea and Vomiting erythromycin base (ERYTHROMYCIN BASE) Allergy (Intermediate, Verified 04/05/25 10:52) Nausea and Vomiting ibuprofen (From MOTRIN) Allergy (Intermediate, Verified 04/05/25 10:52) nausea and vomiting, hives Medication List - Last Reconciled 04/05/25 by Izzy Sanders MD albuterol sulfate 90 mcg/actuation (Ventolin HFA) 2 puffs inhalation QID PRN carbidopa-levodopa 25-100 mg 1 tab PO TID carbidopa-levodopa 25-100 mg ER 1 tab PO DAILY cholecalciferol (vitamin D3) 1,250 mcg PO QWEEK fluticasone propionate 220 mcg/actuation (Flovent HFA) 2 puffs inhalation BID polyethylene glycol 3350 (Miralax) 17 grams PO DAILY HPI Comments Details: History of Parkinson's, DBS, managed in [place]. Patient has not been on spasticity or dystonia medications such as baclofen or tizanidine. Modified independent function level. We tried left GT injection. She says there is no more pain on the left hip but still pops . And still some radiation pain on left cowan. Denies lower back pain. Had recent fall 2 days ago, denies injury. Falls frequently. She does look more comfortable today than when I first saw her. Able to sit down comfortably now. No walker today. 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 Able to sit and stand without pain. No assistive device today. No tenderness over left GT. No tenderness or palpable mass on left cowan. Assessment & Plan Assessment & Plan (1) Left hip impingement syndrome: Code(s): M25.852 - Other specified joint disorders, left hip Category: Medical (2) Pain in left cowan: Code(s): M79.662 - Pain in left lower leg Category: Medical (3) Parkinson disease: Code(s): G20 - Parkinson's disease Category: Medical Qualifiers: Dyskinesia presence: unspecified whether dyskinesia Fluctuating manifestations: unspecified whether manifestations fluctuate Qualified Code(s): G20.A1 - Parkinson's disease without dyskinesia, without mention of fluctuations Plan Left trochanteric bursitis resolved after injection. However I do not know why she is reporting popping sensation. Patient had undergone adequate conservative management without improvement of condition. It would be reasonable to obtain further imaging such as MRI. An MRI would help rule out any serious condition, guide treatment and assess prognosis for recovery. Specifically ruling out left hip impingement. We will also get left tibia/fibular x-ray because of her complaints of cowan pain. Assessment and plan discussed with patient, and patient was agreeable. All questions were answered thoroughly. Follow up after MRI. Izzy Sanders MD, JED Board Certified, [place] [employer] and Rehabilitation (ABPMR) Board Certified, [place] [employer] Electrodiagnostic Medicine (ABEM) Orders: Orders MR hip LT wo con Today M25.852 - Other specified joint disorders, left hip XR tibia fibula LT 2V Today M25.852 - Other specified joint disorders, left hip, M79.662 - Pain in left lower leg Coding Level of Care Code Est Pt Level 4 (07386) Diagnoses Left hip impingement syndrome M25.852 Pain in left cowan M79.662 Parkinson's disease, unspecified whether dyskinesia present, unspecified whether manifestations fluctuate G20.A1 Dyskinesia presence: unspecified whether dyskinesia Fluctuating manifestations: unspecified whether manifestations fluctuate
--- OUTSIDE RECORDS SUMMARY | 2025-04-05 11:47 | XMS_ITS | Data Portability ---
Author Organization [facility] UROLOGY Address [address] [address] Care Team Providers Care Rendering Equipment Tender Name Role Phone PRAVEEN CHICASHAN Referring Provider AMY RINALDI Primary Care Provider [phone] Assessment No assessment recorded. Plan of Treatment [...] mg-levodo pa 100 mg tablet 2024 025 [facility]/Pharmacy #[id number], [address] [place], [address], 12/12/2024 11:09:28 carbidopa ER 25 mg-levodo pa 100 mg tablet,ex tended release 2024 025 [facility]/Pharmacy #[id number], [address] [place], [address], 12/12/2024 11:09:28 fludrocor tisone 0.1 mg tablet 2024 025 [facility]/Pharmacy #[id number], [address] [place], [address], 12/12/2024 11:09:27 carbidopa 25 mg-levodo pa 100 mg tablet 2023 024 [facility]/Pharmacy #[id number], [address] [facility] [place], [address], 06/26/2024 14:00:09 Patient TargetsNo targets recorded. Patient InstructionsNo instructions recorded. Reason for Referral Physical Therapist Referral for Parkinson's disease gait and balance training Referring Physician: Patricia Soriano, Neurology, Encounter Date: 06/26/2024 Problems Name Problem SNOMED Code Status Onset Date Resolution Date Notes Provider Name and Address Organization Details Recorded Time Parkinson's disease 46313474 Active 022 PATRICIA SORIANO MD [address] [place] [address], [phone], [facility] 2 13:00:06 Abnormal gait due to impairment of balance 591423877 Active 023 PATRICIA SORIANO MD [address] [place] [address], [phone], [facility] 3 21:42:19 Problem Notes None recorded. Procedures Surgical History Date Name Laterality Status Provider Name and Address Organization Details Recorded Time Generic Procedure Template completed Prema Reno NP [address] [place] [address], [phone], [facility] 02/10/2021 12:22:08 Imaging Results None recorded. [...] TABLET BY MOUTH THREE TIMES A DAY active Not Available Not Available No t Available fludrocor tisone 0.1 mg tablet TAKE 1 [...] 42 mg capsule with inhalatio n device inhalati on of 2 capsules during off time up to 5 times/da y 05/25 completed Not Available Not Available Not Available Nourianz [...] Updated DateTime 12/12/2024 147.32 cm 17.6 kg/m2 35612.76 g Isaiah [facility] 12/12/2024 10:30:02 Date Recorded Systolic blood pressure Diastolic blood pressure Systolic blood pressure Diastolic blood pressure Provider Name and Address Organization Details Last Updated DateTime 06/26/2024 124 mm[Hg] 72 mm[Hg] 112 mm[Hg] 76 mm[Hg] Ugo gross [facility] 4 13:24:04 Date Recorded Body height Body mass index (BMI) Body weight Systolic blood pressure Diastolic blood pressure Systolic blood pressure Diastolic blood pressure Provider Name and Address Organization Details Last Updated DateTime 147.32 cm 17.6 kg/m2 04961.7 6 g 118 mm[Hg] 66 mm[Hg] 104 mm[Hg] 68 mm[Hg] Alix Alexander [facility] 4 13:12:04 Social History None recorded. Functional Status None recorded. Mental Status None recorded. Family History Nothing Reported. Medical History Condition Response no past medical history reported Y Gynecological HistoryNo gynecological history recorded. Obstetrics History GPAL:G 0 P 0 0 0 0 Past Encounters Encounter ID Performer Location Encounter Start Date Encounter Closed Date Diagnosis/Indication Diagnosis SNOMED-CT Code Diagnosis ICD10 Code Diagnosis Note [id number] JAMAL BRADLEY MD [facility] [address] [place] [address] 07/09/2019 14:30:52 07/09/2019 16:23:12 Parkinson's disease 76659991 G20 [id number] JAMAL BRADLEY MD [facility] [address] [place] [address] 11/06/2019 13:43:22 11/06/2019 15:48:14 Parkinson's disease 00141027 G20 [id number] JAMAL BRADLEY MD [facility] [address] [place] [address] 12/14/2019 10:51:06 12/14/2019 12:00:32 Parkinson's disease 15731064 G20 [id number] JAMAL BRADLEY MD [facility] [address] [place] [address] 04/01/2020 10:00:15 04/01/2020 11:16:56 Parkinson's disease 97197746 G20 [id number] JAMAL BRADLEY MD [facility] [address] [place] [address] 05/23/2020 09:54:14 05/23/2020 10:49:04 Parkinson's disease 22124011 G20 [id number] JAMAL BRADLEY MD [facility] NE[facility] [address] [place] [address] 08/22/2020 11:29:08 08/22/2020 12:57:40 Parkinson's disease 85806617 G20 [id number] JAMAL BRADLEY MD [facility] [address] [place] [address] 11/26/2020 13:22:57 11/26/2020 15:06:36 [id number] Pranay Coto MD [facility] [address] [address] 12/30/2020 11:40:48 12/30/2020 12:01:05 Parkinson's disease 86122573 G20 Acute uppe r respiratory infection [id number] J06.9 *Order must be faxed to [facility] Patient Access Fax # * This order is for PRE-OP Testing Fever [id number] R50.9 *Order must be faxed to [facility] Patient Access Fax # * [id number] Prema Pompa LUCIANA Reno [facility] COVID-19 TESTING CLINIC [address] [facility] [address] [place] [address] 02/10/2021 11:16:13 04/17/2021 13:05:10 Viral screening 485654354 Z11.59 [id number] Pranay Coto MD [facility] [address] [place] [address] 02/27/2021 11:07:17 02/27/2021 12:15:27 Parkinson's disease 47707533 G20 [id number] JAMAL BRADLEY MD [facility] NEUROLOGY OFFICE [address] [place] [address] 03/06/2021 10:58:16 03/06/2021 15:30:02 Parkinson's disease 95461197 G20 [id number] JAMAL BRADLEY MD [facility] NEUROLOGY OFFICE [address] [place] [address] 07/15/2021 11:37:10 07/15/2021 13:39:08 Parkinson's disease 25736445 G20 Start taking Kynmobi when you feel off. It goes under the tongue. Kicks in in 10 minutes and lasts up to 90 minutes. You can take up to 5 times/day Continue Sinemet 25/100 1/4 t 6am and then when you wear off at 8am take Kynmobi [id number] JAMAL BRADLEY MD [facility] [address] [facility] [address] [place] [address] 07/28/2021 10:45:06 07/28/2021 15:41:32 Parkinson's disease 74206828 G20 [id number] JAMAL BRADLEY MD [facility] NEUROLOGY OFFICE [address] [place] [address] 12/04/2021 10:48:20 12/04/2021 12:39:58 Parkinson's disease 58016277 G20 [id number] JAMAL BRADLEY MD [facility] NEUROLOGY OFFICE [address] [place] [address] 03/19/2022 12:03:04 03/19/2022 15:12:23 Parkinson's disease 33400262 G20 [id number] PATRICIA SORIANO MD [facility] NEUROLOGY OFFICE [address] [place] [phone] 06/18/2022 13:05:18 07/09/2022 14:15:24 Parkinson's disease 74112625 G20 -Start Apokyn trial for off periods-Co ntinue Sinemet 25/100 1/4 tablet TID, encouraged regular dosing schedule-C ontinue Sinemet ER 2/100 1 tablet qHS-Contin ue current exercise regimen-Sp eech therapy offered, patient not interested at this time [id number] PATRICIA SORIANO MD [facility] NEUROLOGY OFFICE [address] [place] [address] 08/18/2022 11:44:50 08/18/2022 12:57:44 Parkinson's disease 72862818 G20 This is a 40 yo woman [...] care and 45 min programmin g DBS. [id number] PATRICIA SORIANO MD [facility] NEUROLOGY OFFICE [address] [place] [address] 12/01/2022 11:34:18 12/01/2022 14:27:49 Parkinson's disease 32305071 G20 This is a 42 year old [...] DBS STNBilater al Neuro stimulator se1/e2Bost on [facility]/ Neurosurge ry. CURRENT SETTINGSRI GHT battery 6 [...] STN C+ 1-, 3V/40/110 MOCA: none todayBlood [id number] /61 HR 73Weight 80 pounds PLANReduce Sinemet throughout the day using 1/4 tablets as she has been using and document the number of times taking Sinemet in a 24 hour period.Rowdy allredal Therapy Outpatient : Evaluation and Treatment for Gait and balance training.C ontinue to stay well hydratedCa ll in one week or portal update.Fol low up in three months in [facility] Greater than 50% of this 45 min encounter was spent coordinati ng care and 45 min programmin g DBS. [id number] PATRICIA SORIANO MD [facility] [address] [place] [address] 02/09/2023 12:10:39 02/09/2023 14:29:56 Parkinson's disease 65005958 G20 This is a 42 year old [...] father. Elizabeth Moore account rep her from [employer] to help with sensing and scanning.P esther [...] DBS STNBilater al Neuro stimulator se1/e2Bost on [facility]/ Neurosurge ry.CURRENT SETTINGSRI GHT [...] present PLANBotox injections in this week at [facility] e Sinemet throughout the day using 1/4 [...] g ait due to impairment of balance 977148871 R26.89 Patient with gait dysfunctio n. Will order PT. [id number] PATRICIA SORIANO MD [facility] [address],[place] [address] 02/10/2023 13:18:54 02/14/2023 08:01:56 Parkinson's disease 55769818 G20 This is a 42 year old [...] DBS STNBilater al Neuro stimulator se1/e2Bost on [facility]/ Neurosurge ry. CURRENT SETTINGSRI GHT battery 6 [...] care and 45 min programmin g DBS. [id number] PATRICIA SORIANO MD [facility] [address] [place] [address] 05/25/2023 11:31:48 05/25/2023 12:51:27 Parkinson's disease 15912890 G20 Pleasant 43 year old woman with [...] DBS STNBilater al Neuro stimulator se1/e2Bost on [facility]/ Neurosurge ry.CURRENT SETTINGSRI GHT battery 5 years [...] care and 15 min interogati ng DBS. [id number] PATRICIA SORIANO MD [facility] NEUROLOGY OFFICE [address] [place] [address] 11/01/2023 12:08:44 11/01/2023 13:37:10 Parkinson's disease 57950927 G20.B2 Pleasant 43 year old woman with [...] [employer] DBS STNBilater al Neuro stimulator se1/e2Bost [facility]/ Neurosurge ry.Battery at 5 Y 5 [...] care and 15 min programmin g DBS. [id number] PATRICIA SORIANO MD [facility] NEUROLOGY OFFICE [address] [place] [address] 01/17/2024 11:26:11 01/17/2024 12:36:49 Parkinson's disease 20073390 G20.B2 Pleasant 43 year old woman with [...] DBS STNBilater al Neuro stimulator se1/e2Bost on [facility]/ Neurosurge ry.Battery at 5 Y 5 mosUpcomin [...] care and 30 min programmin g DBS. [id number] PATRICIA SORIANO MD [facility] [address] [place] [address] 05/30/2024 13:20:57 05/30/2024 15:14:55 Parkinson's disease 57383285 G20.B2 Pleasant 44 year old woman with [...] STNRECHARG EABLEBilat eral Neuro stimulator se1/e2ORGI NAL [facility]/ Neurosurge ry.REPLACE MENT OF LEFT e1/e2 due to infection- Dr George Reddy, [facility] Re[facility] le on RIGHT, Dr George Reddy, [facility] CURRENT SETTINGSRI GHT battery 5 years [...] 1- 3.2mA, 60,125 group b Blood /64 [id number]/ 74 standing PLANContin ue Sinemet throughout the [...] min was spent on DBS programmin g. [id number] PATRICIA SORIANO MD [facility] [address] [place] [address] 06/26/2024 13:18:33 06/26/2024 14:05:49 Parkinson's disease 97058511 G20.B2 Pleasant 44 year old woman with [...] STNRECHARG EABLEBilat eral Neuro stimulator se1/e2ORGI NAL [facility]/ Neurosurge ry.REPLACE MENT OF LEFT e1/e2 due to infection- Dr George Reddy, [facility] Rechargeab le on RIGHT, Dr George Reddy, [facility] CURRENT SETTINGSRI GHT battery 5 years [...] min was spent on DBS programmin g. [id number] PATRICIA SORIANO MD [facility] [address] [place] [address] 09/11/2024 12:51:33 09/11/2024 16:00:57 Parkinson's disease 06343119 G20.B2 Pleasant 44 year old woman with [...] STNRECHARG EABLEBilat eral Neuro stimulator se1/e2ORGI NAL [facility]/ Neurosurge ry.REPLACE MENT OF LEFT e1/e2 due to infection- Dr George Reddy, [facility] Rechargeab le on RIGHT, Dr George Reddy, [facility] INITIAL PROGRAMMIN G and FINAL SETTINGL [...] 30 min was spent interogati ng DBS. [id number] PATRICIA SORIANO MD [facility] [address] [place] [address] 12/12/2024 10:14:45 12/12/2024 15:02:11 Parkinson's disease 72353226 G20.B2 Pleasant 44 year old woman with [...] STNRECHARG EABLEBilat eral Neuro stimulator se1/e2ORGI NAL [facility]/ Neurosurge ry.REPLACE MENT OF LEFT e1/e2 due to infection- Dr George Reddy, Anel Rechargeab le on RIGHT, Dr George Reddy, [facility]I PROGRAMMIN G andFINAL SETTINGL STN C+ 1-, 1.5mA/60/1 25 battery is 80%R STN: C+ 1- 3.3mA, 50,125 group b battery is at 40%PLANRev [facility] medical portal phone number given to re establish portal usage.Star t florinef 0.1mg one tablet in the am for one week trial, call on December 20 with an update.Ins tructed to take Blood pressure one hour after taking poContinue Sinemet throughout the day using 1/4 tablets every 3.5 hoursConti nue with good fluids daily including tomato or V-8 juice.Cont act [facility] high risk case manager to help with hearing aids [...] Concerns Section Related Observation LastModified by Organization Sheila chaudhary LastModified Time None Recorded Concern Status LastModified by Organization Details LastModified Time None Recorded Advance Directives Directive None Recorded Payers Insurance Date Sequence Insurance Name Policy Number Policy Mendieta Covered Member ID Mendieta Member ID Guarantor Name 02/26/2025 1 [facility] - DOS ON OR AFTER 2023 - ONE CARE (MEDICARE REPLACEMENT/AD VANTAGE - HMO) Deja Edith [id number] Deja Sharma 05/25/2023 2 [facility] - DOS PRIOR TO 2023 - DUAL ELIGIBLE (MEDICARE REPLACEMENT/AD VANTAGE - HMO) Deja Sharma [id number] Deja Sharma 05/25/2023 1 MEDICARE B-[place]: [employer] Deja Bay Ciciruno [id number] Deja Sharma 05/25/2023 1 MEDICARE A-[place]: [facility] Dejakimmie Sharma [id number] Deja Sharma 05/25/2023 1 [facility] - DOS PRIOR TO 2023 - DUAL ELIGIBLE (MEDICARE REPLACEMENT/AD VANTAGE - HMO) Deja Edith [id number] Deja Edith Notes Date Note Type Note [...] her appointment with Dr. Reddy at the [facility] to 3PM today 01/16. Right leg with tremor, dyskinesia, eye closing all worse without the DBS. Last dose of sinemet was at 9:30 AM. Coordination and walking have been harder without the implantation though still ambulating independently. Had a fall in november 2023: folding laundry standing up walking back fell backwards and hit left side of head on space heater went to [facility] CT negative. 8 sutures healing well. Carbidopa [...] dies. February 02 MRI. PATRICIA SORIANO MD [address] [place] [address], [phone], [facility] 01/17/2024 20:48:49 05/30/2024 text/html Pleasant 44 [...] of dystonia with pain and increased emotions [facility] account rep present for scanning and programming In the past the patient has been tried on amantadine,apokyn, Gocovri, Inbrija, Kynmobi, Mirapex, Neupro patch, Pramipexole, all having sides effects or not effective. Patient continues to have severe dyskinesias, balance issues with several falls. PATRICIA SORIANO MD [address] [place] [address], [phone], [facility] 06/04/2024 20:04:10 06/26/2024 text/html Pleasant 44 [...] adjustments. Eron Jane, Senior Account Rep from [employer] present for brain sensing and live streaming, [...] to bed until 11am. PATRICIA SORIANO MD [address] [place] [address], [phone], [facility] 06/26/2024 21:44:09 09/11/2024 text/html Pleasant [...] She continues to get support from a MANAGER ART 13 hours per week. She denies episodes of choking, endorses occasional dysphagia. She did obtain hearing aids, but is having trouble getting them to function properly, is working with insurance to find out where she can go to get them fixed. She endorses slight pain in her neck since her re-implantation surgery in October. PATRICIA SORIANO MD [address] [place] [address], [phone], [facility] 09/11/2024 19:43:31 12/12/2024 text/html Pleasant 44 [...] or medication regimen today. PATRICIA SORIANO MD [address] [place] [address], [phone], [facility] 12/12/2024 21:15:49 OBGyn Episode No OBEpisode recorded.
== END 2025-04-05 11:50 | disposition home or self-care (01) ==
LOC: HO.HOS 10:46
PROVIDERS: Visit Provider Physical Medicine & Rehabilitation
DX: M25.852 Other specified joint disorders, left hip (principal); M79.662 Pain in left lower leg; G20.A1 Parkinson's disease without dyskinesia, without mention of fluctuations
CPT/HCPCS: 99213

== ENCOUNTER 2025-04-05 10:46 | Outpatient (REF) | payer OTHER, SELFPAY ==
--- NOTE | ~2025-04-05 | XR_ITS ---
EXAMINATION: X-ray left tibia and fibula CLINICAL INFORMATION: Pain TECHNIQUE: AP and lateral views. COMPARISON: None FINDINGS: No acute cortical disruption. No periosteal bone reaction. No lytic or blastic lesions. No subcutaneous emphysema. No metallic or radiopaque foreign body. XR/XR tibia fibula LT 2V IMPRESSION: No acute fracture. No gross bone lesion. Electronically signed by: Raad Ellington MD 04/05/2025 11:33 AM EDT
== END 2025-04-05 10:47 | disposition home or self-care (01) ==
LOC: HO.HOSX 10:46
PROVIDERS: Visit Provider Physical Medicine & Rehabilitation
DX: M25.852 Other specified joint disorders, left hip (principal); M79.662 Pain in left lower leg; G20.A1 Parkinson's disease without dyskinesia, without mention of fluctuations
CPT/HCPCS: 73590; 99212

== ENCOUNTER → 2025-04-05 11:17 | Outpatient (BNV) | payer OTHER, SELFPAY | PROVIDERS: Visit Provider Radiology Diagnostic Radiology | DX: M79.662 Pain in left lower leg (principal) | CPT/HCPCS: 73590 ==

== ENCOUNTER 2025-05-27 08:04 | Outpatient (REF) | payer OTHER, SELFPAY ==
--- OUTSIDE RECORDS SUMMARY | 2025-05-27 08:09 | XMS_ITS | Clinical Summary ---
Author Organization [facility] Address [address] [address] Phone Care Team Providers Care Package Line Relief Operator Name Role Phone Duyen Gutierrez NP Primary Care Provider +1- [phone] Allergies Active Allergy Reactions Criticality Noted Date Comments Azithromycin Diarrhea 09/28/2023 Codeine Nausea And Vomiting,GI Upset Low 04/09/2015 Erythromycin Nausea And Vomiting Low 04/09/2015 Fish Derived Nausea and/or Vomiting 09/28/2023 Gluten Nausea And Vomiting Low 04/09/2015 Ibuprofen Anaphylaxis,GI Upset High 04/09/2015 Milk Containing Products (Dairy) Nausea And Vomiting Low 04/09/2015 Nutritional Supplement-Fiber 09/28/2023 [place] Other (See Comments) 04/09/2015 And bananas Peanut Other (See Comments) 04/09/2015 Pecans- cramping Shellfish Containing Products Nausea And Vomiting Low 04/09/2015 Medications carbidopa-levodo pa (SINEMET) 25-100 mg per tablet Take 1 tablet by mouth 3 (three) times a day. 3 Active therapeutic multivitamin tablet Take 1 tablet by mouth daily. Active carbidopa-levodo pa (SINEMET) 25-100 mg per tablet Take 0.25 tablets by mouth every 2 (two) hours as needed (increased parkinsonian symptoms). 60 tablet 4 Active carbidopa-levodo pa (SINEMET CR) 25-100 mg per CR tablet nightly at bedtime. Active fluticasone-umec lidin-vilanter (TRELEGY ELLIPTA) 200-62.5-25 mcg inhaler Inhale 1 puff into the lungs daily. 4 Active polyethylene glycol (MIRALAX) 17 gram/dose powder Take 17 g by mouth as needed. Active acetaminophen (TYLENOL) 325 mg tablet Take 2 tablets (650 mg total) by mouth every 6 (six) hours as needed. 4 Active Active Problems Problem Noted Date Diagnosed Date Symptomatic Parkinson disease 04/23/2024 Hardware complicating wound infection, initial e ncounter 10/12/2023 Parkinson's disease with dys kinesia and fluctuating manifestations 09/27/2023 Social History Tobacco Use Types Packs/Day Years Used Date Smoking Tobacco: Never Smokeless Tobacco: Never Tobacco Cessation:Counseling Given: Not Answered Alcohol Use Standard Drinks/Week Comments Yes 0 (1 standard drink = 0.6 oz pur e alcohol) social- 1 time a week Education Answer Date Recorded Are you interested in more education? Not on aquilino e 09/23/2023 Are you concerned about learning? Not on file 09/23/2023 No 09/23/2023 No 09/23/2023 Digital Access Answer Date Recorded No 09/23/2023 No 09/23/2023 Reliable internet access at home? Not on file 09/23/2023 Device with a working camera? Not on file Intimate Partner Violence Answer Date R ecorded Are you denied basic needs s uch as food, clothing, or medical care? No 04/23/2024 In the past 12 months have y ou been in a relationship with a person who hurts, threatens, or tries to control you? No 04/23/2024 Are you denied basic needs s uch as food, clothing, or medical care? No 04/23/2024 In the past 12 months have y ou been in a relationship with a person who hurts, threatens, or tries to control you? No 04/23/2024 Comments No Sex and Gender Information Value Date Recorded Sex Assigned at Female 09/23/2023 12:42 PM EST Legal Sex Female 12:37 PM EST Gender Identity Female 09/23/2023 12:42 PM EST Sexual Orientation Straight 09/23/2023 12 :42 PM EST Last Filed Vital Signs Vital Sign Reading Time Taken Comments Blood Pressure 97/55 09/11/2024 12:11 PM EST Pulse 79 09/11/2024 12:11 PM EST Temperature 36.9 C (98.4 F) 04/24/2024 8:01 AM EDT Respiratory Rate 20 04/24/2024 8:01 AM EDT Oxygen Saturation 98% 09/11/2024 12:11 PM EST Inhaled Oxygen Concentration - - Weight 39.9 kg (88 lb) 07/18/2024 1:14 PM EDT Height 147.3 cm (4' 10 ) 04/23/2024 9:39 PM EDT Body Mass Index 18.39 04/23/2024 9:39 PM EDT Plan of Treatment Health Maintenance Due Date Last Done Comments Adult Td,Tdap Booster 1980 LIPID PANEL 1980 DEPRESSION SCREENING 1992 HEPATITIS C SCREENING 1998 HIV ONE-TIME SCREENING (18-6 5 YEARS) 1998 PAP SMEAR 2001 MAMMOGRAM 2020 COVID-19 VACCINE (2023-2 5 season) 2024 10/24/2021, 02/19/2021, 01/29/2021 COLOGUARD 2025 COLONOSCOPY 2025 COLORECTAL CANCER SCREENING 2025 FIT TEST 2025 FOBT 2025 SIGMOIDOSCOPY 2025 VIRTUAL COLONOSCOPY 2025 SMOKING STATUS SCREENING (On ce After 26 Yrs) Completed 02/20/2024 HEPATITIS A VACCINES Aged Out No long er eligible based on patient's age to complete this topic HIB VACCINES Aged Out No longer eligi ble based on patient's age to complete this topic MENINGOCOCCAL VACCINES (ACWY) Aged Out No longer eligible based on patient's age to complete this topic MENINGOCOCCAL VACCINES (B) Aged Out N o longer eligible based on patient's age to complete this topic PNEUMOCOCCAL VACCINES (0-49 years) Aged Out No longer eligible b ased on patient's age to complete this topic Medical Devices Implanted Type Area Programming Internship Device Identifier Shelf Expiration Date Model / Serial / Lot Lens-Iol Lens Screw Bone 1.5x4mm Ti Self Drilling Matrixneuro - [id number] Implanted:Qty: 2 on 04/23/2024 by George Reddy MD, PhD at [facility] STANDARD Left: Cranial JNJ DEPUY SYNTHES SPINE 04.503.1 04.01 / / Stimulator Stimulator [employer] [id number] 00 / / Lead Dbs .5mm 42cm Sensight Marker - [id number] Implanted:Qty: 1 on 04/23/2024 by George Reddy MD, PhD at [facility] Left: Cranial [employer]TR[employer] [facility] 12/31/2025 [id number] M / [id number] / Bone Plate .3x12mm 2 Hole Cranial Matrixneuro Ti Straight [place] Space Ultra Low Profile Thick - [id number] Implanted:Qty: 1 on 04/23/2024 by George Reddy MD, PhD at [facility] Left: Cranial JNJ DEPUY SYNTHES SPINE 04.502.0 62 / / Neurostimulator Deep Brain Rechargeable Implantable Percept Rc - [id number] Implanted:Qty: 1 on 04/23/2024 by George Reddy MD, PhD at [facility] Left: Chest [employer] [facility] 02/04/2026 [id number] / [id number] / Plug Connector Dbs Sensight - [id number] Implanted:Qty: 1 on 04/23/2024 by George Reddy MD, PhD at [facility] Left: Chest [employer] [facility] 09/19/2025 [id number] / / [id number] Extension Dbs 60cm Sensight Marker - [id number] Implanted:Qty: 1 on 04/23/2024 by George Reddy MD, PhD at [facility] Left: Chest [employer] [place] 02/28/2026 [id number] M / [id number] / Neurostimulator Deep Brain Rechargeable Implantable Percept Rc - [id number] Implanted:Qty: 1 on 04/23/2024 by George Reddy MD, PhD at [facility] Right: Chest [employer] [facility] 02/04/2026 [id number] / [id number] / Insurance * Guarantor: Deja Sharma Account Type Relation to Patient Date of Phone Billing Address Personal/Family Self [address] [place] [address] [facility] MEDICARE REPLACEMENT MIGUEL THOMSON [employer] MEDICARE PART A & B * Guarantor: CicighassanDeja soto Account Type Relation to Patient Date of Phone Billing Address Personal/Family Self [address] [place] [address] [facility] MEDICARE REPLACEMENT Member Subscriber Plan / Payer ( fective 2018-Present) Name:CicighassanDeja soto Relation to Subscriber:Self Name:Deja Sharma Payer ID:[id number] (NAIC) Group ID:[id number] Type:Medicare Address: [address] [facility] MIGUEL THOMSON [employer] MEDICARE PART A & B CARE MEDICARE REPLACEMENT MIGUEL THOMSON [id number] MEDICARE PART A & B * Guarantor: Deja Sharma Account Type Relation to Patient Date of Phone Billing Address Personal/Family Self [address] [place] [address] [facility] MEDICARE REPLACEMENT MEDICARE PART A & B * Guarantor: Deja Sharma Account Type Relation to Patient Date of Phone Billing Address Personal/Family Self [address] [place] [address] [facility] MEDICARE REPLACEMENT MEDICARE PART A & B * Guarantor: CicikirtDeja Account Type Relation to Patient Date of Phone Billing Address Personal/Family Self [address] [place] [address] [facility] MEDICARE REPLACEMENT MEDICARE PART A & B Advance Directives For more information, please contact: [phone] (9AM - 5PM [facility], Tuesday-Tuesday) * Full Code (Latest Code Status on File) Date Activated Date Inactivated Comments 10/13/2023 4:05 AM Question Answer Comments Code Status Confirmed With: Patient Code Status Communicated To: Inpatient Attending Care Teams Package Line Relief Operator Relationship Specialty Start Date End Date Duyen Gutierrez NP [address] [place] [address] PCP - General Nurse Practitioner 09/23/23 Additional Source Comments The information contained in this document represents components of the legal health record. It is not the complete legal health record.[facility]
== END 2025-05-27 08:05 | disposition home or self-care (01) ==
LOC: HO.HOSX 08:04
DX: Z13.89 Encounter for screening for other disorder (principal)

== ENCOUNTER 2025-06-30 10:38 | Outpatient (REF) | payer OTHER, SELFPAY ==
--- NOTE | ~2025-06-30 | MR_ITS ---
CLINICAL HISTORY: M25.852 - Other specified joint disorders, left hip --- Additional Notes or Special Instructions: left hip pops MR left hip without gadolinium Comparison: DX/SR - XR HIP 2 OR MORE VIEWS LEFT - 01/17/25 10:21 EDT Findings: No fractures. No pathologic bone lesions. No femoral neck bony protuberances. Normal acetabular version. No joint effusion. Musculotendinous structures are intact. Left ovarian cyst, 3 x 4 x 3.3 cm Small undersurface tear of the anterior superior acetabular labrum at the labrocartilaginous junction. IMPRESSION: 1. No acute osseous injury. 2. Anterior superior acetabular tear. 3. Left ovarian cyst, measuring 3 x 4 x 3.3 cm. This document has been electronically signed by: Juve Serrano MD on 07/04/2025 00:10:58
--- OUTSIDE RECORDS SUMMARY | 2025-06-30 10:41 | XMS_ITS | Encounter Summary ---
Author Organization [facility] Address [address] [facility] [address] [place] [address] Phone Care Team Providers Care Medical Center Director Name Role Phone Duyen Gutierrez NP Primary Care Provider +1- [phone] Encounter Details Date Type Department Care Team ([facility] st Contact Info) Description 11/02/2023 Procedure Pass [facility] MR Imaging, [facility] [address] [place] [address] Social History Tobacco Use Types Packs/Day Years Used Date Smoking Tobacco: Never Smokeless Tobacco: Never Alcohol Use Standard Drinks/Week Comments Yes 0 (1 standard drink = 0.6 oz pur e alcohol) social Education Answer Date Recorded Are you interested in more education? Not on aquilino e 09/23/2023 Are you concerned about learning? Not on file 09/23/2023 No 09/23/2023 No 09/23/2023 Digital Access Answer Date Recorded No 09/23/2023 No 09/23/2023 Reliable internet access at home? Not on file 09/23/2023 Device with a working camera? Not on file Comments No Sex and Gender Information Value Date Recorded Sex Assigned at Female 09/23/2023 12:42 PM EST Legal Sex Female 12:37 PM EST Gender Identity Female 09/23/2023 12:42 PM EST Sexual Orientation Straight 09/23/2023 12 :42 PM EST documented as of this encounter Plan of Treatment Not on file documented as of this encounter Visit Diagnoses Not on filedocumented in this encounter Care Teams Medical Center Director Relationship Specialty Start Date End Date Duyen Gutierrez NP [address] [place] [address] PCP - General Nurse Practitioner 09/23/23 documented as of this encounter Additional Source Comments The information contained in this document represents components of the legal health record. It is not the complete legal health record.[facility]
--- OUTSIDE RECORDS SUMMARY | 2025-06-30 10:41 | XMS_ITS | Encounter Summary ---
Author Organization [facility] Address [address] [place] [address] Phone Care Team Providers Care Rf Manager Name Role Phone Duyen Gutierrez NP Primary Care Provider +1- [phone] Encounter Details Date Type Department Care Team (Late st Contact Info) Description 04/23/2024 Procedure Pass [facility] [address] [place] [address] Social History Tobacco Use Types Packs/Day Years [...] PM EST documented as of this encounter Functional Status * Calculated C-SSRS Risk Score (Lifetime/Recent) Answer Date of Assessment Author No Risk Indicated 04/23/2024 9:00 PM Radha Small, NINOSKA * [place] Suicide Severity Rating Scale (Screener/Recent Self-Report) Question Answer Date of Assessment Author 1. Wish to be (Past 1 Month) No 04/23/2024 9:00 PM Gabbie Small RN 2. Non-Specific Active Suici jarret Thoughts (Past 1 Month) No 04/23/2024 9:00 PM Chata Small RN 6. Suicidal Behavior (Lifetime) No 9:00 PM Radha Small RN documented as of this encounter Plan of Treatment Not on file documented as of this encounter Visit Diagnoses Not on filedocumented in this encounter Care Teams Rf Manager Relationship Specialty Start Date End Date Duyen Gutierrez NP [address] [place] [address] PCP - General Nurse Practitioner 09/23/23 documented as of this encounter Additional Source Comments The information contained in this document represents components of the legal health record. It is not the complete legal health record.[facility]
--- OUTSIDE RECORDS SUMMARY | 2025-06-30 10:41 | XMS_ITS | Encounter Summary ---
Author Organization [facility] Address [address] [place] [address] Phone Care Team Providers Care Janitor Supervisor Name Role Phone Duyen Gutierrez NP Primary Care Provider +1- [phone] Encounter Details Date Type Department Care Team (Late st Contact Info) Description 10/12/2023 Procedure Pass [facility] [address] [place] [address] Social History Tobacco Use Types Packs/Day Years [...] Date of Assessment Author No Risk Indicated 10/12/2023 11:00 PM Elsa Kumar RN * [place] Suicide Severity Rating Scale (Screener/Recent Self-Report) Question Answer Date of Assessment Author 1. Wish to be (Past 1 Month) No 10/12/2023 11:00 PM Elsa Kumar RN 2. Non-Specific Active Suicidal Thoughts (Past 1 Month) No 10/12/2023 11:00 PM Elsa Kumar RN 6. Suicidal Behavior (Lifetime) No 10/12/2023 11:00 PM Elsa Kumar RN documented as of this encounter Plan of Treatment Not on file documented as of this encounter Visit Diagnoses Not on filedocumented in this encounter Care Teams Janitor Supervisor Relationship Specialty Start Date End Date Duyen Gutierrez NP [address] [place] [address] PCP - General Nurse Practitioner 09/23/23 documented as of this encounter Additional Source Comments The information contained in this document represents components of the legal health record. It is not the complete legal health record.[facility]
--- OUTSIDE RECORDS SUMMARY | 2025-06-30 10:41 | XMS_ITS | Encounter Summary ---
Author Organization [facility] Address [address] [place] [address] Phone Care Team Providers Care Janitorial Account Manager Name Role Phone Duyen Gutierrez NP Primary Care Provider +1- [phone] Encounter Details Date Type Department Care Team (Late st Contact Info) Description 04/23/2024 Procedure Pass [facility] [address] [place] [address] Social History Tobacco Use Types Packs/Day Years [...] 04/23/2024 9:00 PM Radha Small, NINOSKA * [place] Suicide Severity Rating Scale (Screener/Recent Self-Report) Question [...] on filedocumented in this encounter Care Teams Janitorial Account Manager Relationship Specialty Start Date End Date Duyen Gutierrez NP [address] [place] [address] PCP - General Nurse Practitioner 09/23/23 documented as of this encounter Additional Source Comments The information contained in this document represents components of the legal health record. It is not the complete legal health record.[facility]
--- OUTSIDE RECORDS SUMMARY | 2025-06-30 10:41 | XMS_ITS | Clinical Summary ---
Author Organization [facility] Address [address] [address] Phone Care Team Providers Care Sap Abap Developer Name Role Phone Duyen Gutierrez NP Primary Care Provider +1- [phone] Allergies Active Allergy Reactions Criticality Noted Date Comments Azithromycin Diarrhea 09/28/2023 Codeine Nausea And Vomiting,GI Upset Low 04/09/2015 Erythromycin Nausea And Vomiting Low 04/09/2015 Fish Derived Nausea and/or Vomiting 09/28/2023 Gluten Nausea And Vomiting Low 04/09/2015 Ibuprofen Anaphylaxis,GI Upset High 04/09/2015 Milk Containing Products (Dairy) Nausea And Vomiting Low 04/09/2015 Nutritional Supplement-Fiber 09/28/2023 [place] Other (See Comments) 04/09/2015 And bananas Peanut [...] YEARS) 1998 PAP SMEAR 2001 MAMMOGRAM 2020 COLOGUARD 2025 COLONOSCOPY 2025 COLORECTAL CANCER SCREENING 2025 FIT TEST 2025 FOBT 2025 SIGMOIDOSCOPY 2025 VIRTUAL COLONOSCOPY 2025 INFLUENZA VACCINE (#1) 2025 COVID-19 VACCINE (2024-2 6 season) 2025 10/24/2021, 02/19/2021, 01/29/2021 SMOKING STATUS SCREENING (On ce After 26 [...] this topic Medical Devices Implanted Type Area Curing Pickling Packer Device Identifier Shelf Expiration Date Model / Serial / Lot Lens-Iol Lens Screw Bone 1.5x4mm Ti Self Drilling Matrixneuro - [id number] Implanted:Qty: 2 on 04/23/2024 by George Reddy MD, PhD at [facility] STANDARD Left: Cranial JNJ DEPUY SYNTHES SPINE 04.503.1 04.01 / / Stimulator Stimulator [employer] B352 00 / / Lead Dbs .5mm 42cm Sensight Marker - [id number] Implanted:Qty: 1 on 04/23/2024 by George Reddy MD, PhD at [facility] Left: Cranial [employer] [facility] 12/31/2025 [id number] M / [id number] / Bone Plate .3x12mm 2 Hole Cranial Matrixneuro Ti Straight [place] Space Ultra Low Profile Thick - [id number] Implanted:Qty: 1 on 04/23/2024 by George Reddy MD, PhD at [facility] Left: Cranial [facility] DEPUY SYNTHES SPINE 04.502.0 62 / / Neurostimulator Deep Brain Rechargeable Implantable Percept Rc - [id number] Implanted:Qty: 1 on 04/23/2024 by George Reddy MD, PhD at [facility] Left: Chest [employer] [facility] 02/04/2026 [id number] / [id number] / Plug Connector Dbs Sensight - [id number] Implanted:Qty: 1 on 04/23/2024 by George Reddy MD, PhD at [facility] Left: Chest [employer] [facility] 09/19/2025 [id number] / / [id number] Extension Dbs 60cm Sensight Marker - [id number] Implanted:Qty: 1 on 04/23/2024 by George Reddy MD, PhD at [facility] Left: Chest [employer] [facility] 02/28/2026 [id number] M / [id number] / Neurostimulator Deep Brain Rechargeable Implantable Percept Rc - [id number] Implanted:Qty: 1 on 04/23/2024 by George Reddy MD, PhD at [facility] Right: Chest [employer] [facility] 02/04/2026 [id number] / [id number] / [place] [address] [address] [place] [address] ONE CARE MEDICARE REPLACEMENT Member Subscriber Plan / Payer (Ef fective 2018-Present) Name:Cicikirt Deja Relation to Subscriber:Self Name:Deja Sharma Payer ID:[id number] (NAIC) Group ID:[id number] Type:Medicare [address] [facility] MEDICARE PART A & B [facility] CARE MEDICARE REPLACEMENT MIGUEL THOMSON [facility] MEDICARE PART A & B [facility] CARE MEDICARE REPLACEMENT MIGUEL THOMSON [facility] MEDICARE PART A & B [facility] CARE MEDICARE REPLACEMENT MEDICARE PART A & [place] [id number] MEDICARE PART A & B CARE MEDICARE REPLACEMENT MEDICARE PART A & B Advance Directives For more information, please contact: [phone] (9AM - 5PM [facility], Tuesday-Tuesday) * Full Code (Latest Code Status on File) Date Activated Date Inactivated Comments 10/13/2023 4:05 AM Question Answer Comments Code Status Confirmed With: Patient Code Status Communicated To: Inpatient Attending Care Teams Sap Abap Developer Relationship Specialty Start Date End Date Duyen Gutierrez NP [address] [place] [address] PCP - General Nurse Practitioner 09/23/23 Additional Source Comments The information contained in this document represents components of the legal health record. It is not the complete legal health record.[facility]
--- OUTSIDE RECORDS SUMMARY | 2025-06-30 10:41 | XMS_ITS | Encounter Summary ---
Author Organization [facility] Address [address] [facility] [address] [place] [address] Phone Care Team Providers Care Line Maintainer Name Role Phone Duyen Gutierrez NP Primary Care Provider +1- [phone] Encounter Details Date Type Department Care Team ([facility] st Contact Info) Description 09/27/[address] [facility] CT Imaging, [place] [address] [place] [address] Social History Tobacco Use Types Packs/Day Years [...] on filedocumented in this encounter Care Teams Line Maintainer Relationship Specialty Start Date End Date Duyen Gutierrez NP [address] [place] [address] PCP - General Nurse Practitioner 09/23/23 documented as of this encounter Additional Source Comments The information contained in this document represents components of the legal health record. It is not the complete legal health record.[facility]
--- OUTSIDE RECORDS SUMMARY | 2025-06-30 10:41 | XMS_ITS | Encounter Summary ---
Author Organization [facility] Address [address] [facility] [address] [place] [address] Phone Care Team Providers Care Crystal Mounter Name Role Phone Duyen Gutierrez NP Primary Care Provider +1- [phone] Encounter Details Date Type Department Care Team (Late st Contact Info) Description 04/23/2024 Procedure Pass [facility] Periop [address] [place] [address] Social History Tobacco Use Types Packs/Day Years [...] No Risk Indicated 04/23/2024 9:00 PM Radha Small RN * [place] Suicide Severity Rating Scale (Screener/Recent Self-Report) Question [...] on filedocumented in this encounter Care Teams Crystal Mounter Relationship Specialty Start Date End Date Duyen Gutierrez NP [address] [place] [address] PCP - General Nurse Practitioner 09/23/23 documented as of this encounter Additional Source Comments The information contained in this document represents components of the legal health record. It is not the complete legal health record.[facility]
--- OUTSIDE RECORDS SUMMARY | 2025-06-30 10:41 | XMS_ITS | Encounter Summary ---
Author Organization [facility] Address [address] [facility] [address] [place] [address] Phone Care Team Providers Care Filler Sifter Helper Name Role Phone Duyen Gutierrez NP Primary Care Provider +1- [phone] Encounter Details Date Type Department Care Team (Late st Contact Info) Description 10/12/2023 Procedure Pass [facility] Periop [address] [place] [address] Social History Tobacco Use Types Packs/Day Years [...] 10/12/2023 11:00 PM Elsa Kumar RN * [place] Suicide Severity Rating Scale (Screener/Recent Self-Report) Question [...] on filedocumented in this encounter Care Teams Filler Sifter Helper Relationship Specialty Start Date End Date Duyen Gutierrez NP [address] [place] [address] PCP - General Nurse Practitioner 09/23/23 documented as of this encounter Additional Source Comments The information contained in this document represents components of the legal health record. It is not the complete legal health record.[facility]
== END 2025-06-30 10:39 | disposition home or self-care (01) ==
LOC: HO.MRI 10:38
PROVIDERS: Visit Provider Physical Medicine & Rehabilitation
DX: M25.852 Other specified joint disorders, left hip (principal)
CPT/HCPCS: 73721

== ENCOUNTER → 2025-06-30 10:53 | Outpatient (BNV) | payer OTHER, SELFPAY | PROVIDERS: Visit Provider Radiology Diagnostic Radiology | DX: M24.852 Other specific joint derangements of left hip, not elsewhere classified (principal) | CPT/HCPCS: 73721 ==

== ENCOUNTER 2025-07-01 14:26 | Outpatient (AMB) | payer OTHER, SELFPAY ==
--- NOTE | 2025-07-01 14:30 | A.OFFVIS_ITS ---
Intake Visit Reasons: OV- Left Shoulder pain Intake Note: Deja is a 45 year old right hand dominant female who presents today for follow up of her Left Shoulder Painful Arc Syndrome. She was given a left shoulder injection at her last visit on 01/23/25 with plans to follow up 8 weeks after, if needed. Patient reports today the injection did not give her any relief. She states the pain has worsened since her last visit with us. She is not interested in repeating the injection today. Denies new injuries to the shoulder. Allergies codeine (CODEINE) Allergy (Intermediate, Verified 07/01/25 14:30) Nausea and Vomiting erythromycin base (ERYTHROMYCIN BASE) Allergy (Intermediate, Verified 07/01/25 14:30) Nausea and Vomiting ibuprofen (From MOTRIN) Allergy (Intermediate, Verified 07/01/25 14:30) nausea and vomiting, hives HPI HPI OV- Left Shoulder pain: Details: Deja is a 45 year old right hand dominant female who presents today for follow up of her Left Shoulder Painful Arc Syndrome. She was given a left shoulder injection at her last visit on 01/23/25 with plans to follow up 8 weeks after, if needed. Patient reports today the injection did not give her any relief. She sta filippo the pain has worsened since her last visit with us. She is not interested in repeating the injection today. Denies new injuries to the shoulder. 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 Review of Systems Const All systems reviewed & are unremarkable except as noted in HPI and below Physical Exam Extrem Other: Patient's left shoulder normal to inspection No erythema, ecchymosis, edema noted No lacerations, abrasions, open areas No evidence of infection Patient reports no tenderness to palpation of the AC joint, acromion, clavicle, humeral head, or elsewhere left shoulder Patient was able to forward flex the left shoulder to 90 degrees without d ifficulty Patient was able to externally rotate bilateral shoulders to approximately 75 degrees without difficulty Positive empty can test in the left Negative belly press Mildly positive lift-off on the left Distal sensation intact Capillary refill brisk Assessment & Plan Assessment & Plan (1) Painful arc syndrome of left shoulder: Code(s): M75.102 - Unspecified rotator cuff tear or rupture of left shoulder, not specified as traumatic Category: Medical Plan 1. Painful arc syndrome of left shoulder Patient was educated about this condition Patient was educated about the treatment options and diagnostic imaging available Patient should go back to PT as she is uninterested in further imaging, injections, or discussion of surgical intervention PT order placed Activity as tolerated in LUE Patient will follow-up as neededr with any acute concerns Coding Level of Care Code Est Pt Level 3 (26903) Diagnoses Painful arc syndrome of left shoulder M75.102
--- OUTSIDE RECORDS SUMMARY | 2025-07-01 16:56 | XMS_ITS | Encounter Summary ---
Author Organization [facility] Address [address] [place] [address] Phone Care Team Providers Care Green Building Engineer Name Role Phone
== END 2025-07-01 15:15 | disposition home or self-care (01) ==
LOC: HO.HOS 14:26
DX: M75.102 Unspecified rotator cuff tear or rupture of left shoulder, not specified as traumatic (principal)
CPT/HCPCS: 99213

== ENCOUNTER → 2025-07-01 14:26 | Outpatient (BNVA) | payer OTHER, SELFPAY | DX: M25.512 Pain in left shoulder (principal); M75.102 Unspecified rotator cuff tear or rupture of left shoulder, not specified as traumatic | CPT/HCPCS: 99212 ==

== ENCOUNTER 2025-07-12 11:54 | Outpatient (AMB) | payer OTHER, SELFPAY ==
--- NOTE | 2025-07-12 12:02 | A.OFFVIS_ITS ---
Vital Signs 07/12/25 12:06 Height 4 ft 10 in Weight 85 lb BMI 17.8 Intake Visit Reasons: OV- Left Hip MRI Review Intake Note: Deja is a 45 year old female who presents today as a MRI follow up for her Left hip,07/04/25. Patient states that no changes to report. Allergies codeine (CODEINE) Allergy (Intermediate, Verified 07/12/25 12:06) Nausea and Vomiting erythromycin base (ERYTHROMYCIN BASE) Allergy (Intermediate, Verified 07/12/25 12:06) Nausea and Vomiting ibuprofen (From MOTRIN) Allergy (Intermediate, Verified 07/12/25 12:06) nausea and vomiting, hives Medication List - Last Reconciled 07/12/25 by Izzy Sanders MD albuterol sulfate 90 mcg/actuation (Ventolin HFA) 2 puffs inhalation QID PRN carbidopa-levodopa 25-100 mg 1 tab PO TID carbidopa-levodopa 25-100 mg ER 1 tab PO DAILY cholecalciferol (vitamin D3) 1,250 mcg PO QWEEK fluticasone propionate 220 mcg/actuation (Flovent HFA) 2 puffs inhalation BID polyethylene glycol 3350 (Miralax) 17 grams PO DAILY HPI Comments Details: History of Parkinson's, DBS, managed in [place]. Patient has not been on spasticity or dystonia medications such as baclofen or tizanidine. Modified independent function level. We tried left GT injection. She says there is no more pain on the left hip but s till pops . And still some radiation pain on left cowan. Denies lower back pain. MRI obtained. Shows mild labral tear. Full report below. Today still no pain. Pops though. A lot of tremors/dystonia today. 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 Appeared comfortable in terms of the hip. But a lot of dystonic involuntary movements. Results Reviewed Results Reviewed: Ordering Physician: Izzy Judd Date of Service: 06/30/25 Procedure(s): MR hip LT wo con Accession Number(s): [id number] cc: Physician,Unknown ; Izzy Judd~ Reason for Exam: M25.852 - Other specified joint disorders, left hip CLINICAL HISTORY: M25.852 - Other specified joint disorders, left hip --- Additional Notes or Special Instructions: left hip pops MR left hip without gadolinium Comparison: DX/SR - XR HIP 2 OR MORE VIEWS LEFT - 01/17/25 10:21 EDT Findings: No fractures. No pathologic bone lesions. No femoral neck bony protuberances. Normal acetabular version. No joint effusion. Musculotendinous structures are intact. Left ovarian cyst, 3 x 4 x 3.3 cm Small undersurface tear of the anterior superior acetabular labrum at the labrocartilaginous junction. IMPRESSION: 1. No acute osseous injury. 2. Anterior superior acetabular tear. 3. Left ovarian cyst, measuring 3 x 4 x 3.3 cm. This document has been electronically signed by: Juve Serrano MD on 07/04/2025 00:10:58 Ordering Physician: Eloisa Freeman Date of Service: 08/22/23 Procedure(s): XR hip LT w PEL1V Accession Number(s): [id number] cc: Eloisa Freeman; Physician,Unknown ~ EXAMINATION: XR HIP, LEFT CLINICAL INFORMATION: Pain after fall COMPARISON: None available. TECHNIQUE: Two views of the left hip. FINDINGS: Visualized portion of proximal left femur demonstrate no fracture. Left femoral head is well-seated within the acetabulum. Left femoral acetabular joint space is well-maintained. Pelvic ring is intact. Right hip is grossly unremarkable. Small pelvic calcifications are likely vascular in nature. XR/XR hip LT w PEL1V IMPRESSION: No fracture, dislocation or significant degenerative changes of the left hip. Assessment & Plan Assessment & Plan (1) Left hip impingement syndrome: Code(s): M25.852 - Other specified joint disorders, left hip Category: Medical (2) Labral tear of hip joint: Code(s): S73.199A - Other sprain of unspecified hip, initial encounter Category: Medical Qualifiers: Encounter type: initial encounter Laterality: left Qualified Code(s): S73.192A - Other sprain of left hip, initial encounter (3) Parkinson disease: Code(s): G20 - Parkinson's disease Category: Medical Qualifiers: Dyskinesia presence: unspecified whether dyskinesia Fluctuating manifestations: unspecified whether manifestations fluctuate Qualified Code(s): G20.A1 - Parkinson's disease without dyskinesia, without mention of fluctuations Plan Small labral tear seen on MRI, would be consistent with her history of hip popping sensation. Denies any pain. Would recommend rehab/PT. Patient amenable. Assessment and plan discussed with patient, and patient was agreeable. All questions were answered thoroughly. Izzy Sanders MD, JED Board Certified, [place] Board [employer] Physical Medicine and Rehabilitation (ABPMR) Board Certified, [place] Board of Electrodiagnostic Medicine (ABEM) Orders: Orders PT Evaluation and Treatment Today G20.A1 - Parkinson's disease without dyskinesia, without mention of fluctuations, M25.852 - Other specified joint disorders, left hip, S73.192A - Other sprain of left hip, initial encounter Coding Level of Care Code Est Pt Level 4 (86192) Diagnoses Left hip impingement syndrome M25.852 Tear of left acetabular labrum, initial encounter S73.192A Encounter type: initial encounter Laterality: left Parkinson's disease, unspecified whether dyskinesia present, unspecified whether manifestations fluctuate G20.A1 Dyskinesia presence: unspecified whether dyskinesia Fluctuating manifestations: unspecified whether manifestations fluctuate
[2025-07-12 12:06] VITALS: BMI 17.8
--- OUTSIDE RECORDS SUMMARY | 2025-07-12 12:53 | XMS_ITS | Encounter Summary ---
Author Organization [facility] Address [address] [place] [address] Phone Care Team Providers Care Fire Investigation Lieutenant Name Role Phone Duyen Gutierrez NP Primary Care Provider +1- [phone] Encounter Details Date Type Department Care Team (Late st Contact Info) Description 04/23/2024 Procedure Pass [facility] [address] [place] [address] Social History Tobacco Use Types Packs/Day Years [...] 04/23/2024 9:00 PM Radha Small, NINOSKA * [place] Suicide Severity Rating Scale (Screener/Recent Self-Report) Question [...] on filedocumented in this encounter Care Teams Fire Investigation Lieutenant Relationship Specialty Start Date End Date Duyen Gutierrez NP [address] [place] [address] PCP - General Nurse Practitioner 09/23/23 documented as of this encounter Additional Source Comments The information contained in this document represents components of the legal health record. It is not the complete legal health record.[facility]
--- OUTSIDE RECORDS SUMMARY | 2025-07-12 12:53 | XMS_ITS | Encounter Summary ---
Author Organization [facility] Address [address] [place] [address] Phone Care Team Providers Care Mandrel Press Hand Name Role Phone Duyen Gutierrez NP Primary Care Provider +1- [phone] Encounter Details Date Type Department Care Team (Late st Contact Info) Description 04/23/2024 Procedure Pass [facility] [address] [place] [address] Social History Tobacco Use Types Packs/Day Years [...] 04/23/2024 9:00 PM Radha Small, NINOSKA * [place] Suicide Severity Rating Scale (Screener/Recent Self-Report) Question Answer Date of Assessment Author 1. Wish to be (Past 1 Month) No 04/23/2024 9:00 PM Gabbie Small RN 2. Non-Specific Active Suici jarret Thoughts (Past 1 Month) No 04/23/2024 9:00 PM Chata mSall RN 6. Suicidal Behavior (Lifetime) No 9:00 PM Radha Small RN documented as of this encounter Plan of Treatment Not on file documented as of this encounter Visit Diagnoses Not on filedocumented in this encounter Care Teams Mandrel Press Hand Relationship Specialty Start Date End Date Duyen Gutierrez NP [address] [place] [address] PCP - General Nurse Practitioner 09/23/23 documented as of this encounter Additional Source Comments The information contained in this document represents components of the legal health record. It is not the complete legal health record.[facility]
--- OUTSIDE RECORDS SUMMARY | 2025-07-12 12:53 | XMS_ITS | Encounter Summary ---
Author Organization [facility] Address [address] [place] [address] Phone Care Team Providers Care Service Bar Cashier Name Role Phone Duyen Gutierrez NP Primary Care Provider +1- [phone] Encounter Details Date Type Department Care Team (Late st Contact Info) Description 04/23/2024 Procedure Pass [facility] Periop [address] [place] [address] Social History Tobacco Use Types Packs/Day Years [...] 04/23/2024 9:00 PM Radha Small RN * [place] Suicide Severity Rating Scale (Screener/Recent Self-Report) Question [...] on filedocumented in this encounter Care Teams Service Bar Cashier Relationship Specialty Start Date End Date Duyen Gutierrez NP [address] [place] [address] PCP - General Nurse Practitioner 09/23/23 documented as of this encounter Additional Source Comments The information contained in this document represents components of the legal health record. It is not the complete legal health record.[facility]
--- OUTSIDE RECORDS SUMMARY | 2025-07-12 12:53 | XMS_ITS | Encounter Summary ---
Author Organization [facility] Address [address] [place] [address] Phone Care Team Providers Care Regulatory Affairs Spec Name Role Phone Duyen Gutierrez NP Primary Care Provider +1- [phone] Encounter Details Date Type Department Care Team (Late st Contact Info) Description 10/12/2023 Procedure Pass [facility] [address] [place] [address] Social History Tobacco Use Types Packs/Day Years [...] 10/12/2023 11:00 PM Elsa Kumar RN * [place] Suicide Severity Rating Scale (Screener/Recent Self-Report) Question [...] on filedocumented in this encounter Care Teams Regulatory Affairs Spec Relationship Specialty Start Date End Date Duyen Gutierrez NP [address] [place] [address] PCP - General Nurse Practitioner 09/23/23 documented as of this encounter Additional Source Comments The information contained in this document represents components of the legal health record. It is not the complete legal health record.[facility]
--- OUTSIDE RECORDS SUMMARY | 2025-07-12 12:53 | XMS_ITS | Encounter Summary ---
Author Organization [facility] Address [address] [place] [address] Phone Care Team Providers Care Watch Assembly Inspector Name Role Phone Duyen Gutierrez NP Primary Care Provider +1- [phone] Encounter Details Date Type Department Care Team ([facility] st Contact Info) Description 11/02/2023 Procedure Pass [facility] MR Imaging, [place] [place] [address] Social History Tobacco Use Types Packs/Day Years [...] on filedocumented in this encounter Care Teams Watch Assembly Inspector Relationship Specialty Start Date End Date Duyen Gutierrez NP [address] [place] [address] PCP - General Nurse Practitioner 09/23/23 documented as of this encounter Additional Source Comments The information contained in this document represents components of the legal health record. It is not the complete legal health record.[facility]
--- OUTSIDE RECORDS SUMMARY | 2025-07-12 12:53 | XMS_ITS | Encounter Summary ---
Author Organization [facility] Address [address] [place] [address] Phone Care Team Providers Care Intelligence Officer Name Role Phone Duyen Gutierrez NP Primary Care Provider +1- [phone] Encounter Details Date Type Department Care Team (Late st Contact Info) Description 10/12/2023 Procedure Pass [facility] Periop [address] [place] [address] Social History Tobacco Use Types Packs/Day Years [...] 10/12/2023 11:00 PM Elsa Kumar RN * [place] Suicide Severity Rating Scale (Screener/Recent Self-Report) Question [...] on filedocumented in this encounter Care Teams Intelligence Officer Relationship Specialty Start Date End Date Duyen Gutierrez NP [address] [place] [address] PCP - General Nurse Practitioner 09/23/23 documented as of this encounter Additional Source Comments The information contained in this document represents components of the legal health record. It is not the complete legal health record.[facility]
--- OUTSIDE RECORDS SUMMARY | 2025-07-12 12:54 | XMS_ITS | Encounter Summary ---
Author Organization [facility] Address [address] [place] [address] Phone Care Team Providers Care Forensic Science Examiner Name Role Phone Duyen Gutierrez NP Primary Care Provider +1- [phone] Encounter Details Date Type Department Care Team ([facility] st Contact Info) Description 09/27/2023 Procedure Pass [facility] Imaging, [place] [address] [place] [address] Social History Tobacco Use Types Packs/Day Years [...] on filedocumented in this encounter Care Teams Forensic Science Examiner Relationship Specialty Start Date End Date Duyen Gutierrez NP [address] [place] [address] PCP - General Nurse Practitioner 09/23/23 documented as of this encounter Additional Source Comments The information contained in this document represents components of the legal health record. It is not the complete legal health record.[facility]
--- OUTSIDE RECORDS SUMMARY | 2025-07-12 12:54 | XMS_ITS | Clinical Summary ---
Author Organization [facility] Address [address] [address] Phone Care Team Providers Care Service Advocate Contact Name Role Phone Duyen Gutierrez NP Primary Care Provider +1- [phone] Allergies Active Allergy Reactions Criticality Noted Date Comments Azithromycin Diarrhea 09/28/2023 Codeine Nausea And Vomiting,GI Upset Low 04/09/2015 Erythromycin Nausea And Vomiting Low 04/09/2015 Fish Derived Nausea and/or Vomiting 09/28/2023 Gluten Nausea And Vomiting Low 04/09/2015 Ibuprofen Anaphylaxis,GI Upset High 04/09/2015 Milk Containing Products (Dairy) Nausea And Vomiting Low 04/09/2015 Nutritional Supplement-Fiber 09/28/2023 [place] Other (See Comments) 04/09/2015 And bananas Peanut [...] this topic Medical Devices Implanted Type Area Fig Caprifier Device Identifier Shelf Expiration Date Model / Serial / Lot Lens-Iol Lens Screw Bone 1.5x4mm Ti Self Drilling Matrixneuro - [id number] Implanted:Qty: 2 on 04/23/2024 by George Reddy MD, PhD at [facility] STANDARD Left: Cranial JNJ DEPUY SYNTHES SPINE 04.503.1 04.01 / / Stimulator Stimulator [employer] [id number] 00 / / Lead Dbs .5mm 42cm Sensight Marker - [id number] Implanted:Qty: 1 on 04/23/2024 by George Reddy MD, PhD at [facility] Left: Cranial [employer] [facility] 12/31/2025 [id number] M / [id number] / Bone Plate .3x12mm 2 Hole Cranial Matrixneuro Ti Straight [place] Space Ultra Low Profile Thick - [id number] Implanted:Qty: 1 on 04/23/2024 by George Reddy MD, PhD at [facility] Left: Cranial [facility] DEPUY SYNTHES SPINE 04.502.0 62 / / Neurostimulator Deep Brain Rechargeable Implantable Percept Rc - [id number] Implanted:Qty: 1 on 04/23/2024 by George Reddy MD, PhD at [facility] Left: Chest [employer] [facility] 02/04/2026 [id number] / [id number] / Plug Connector Dbs Sensight - [id number] Implanted:Qty: 1 on 04/23/2024 by George Reddy MD, PhD at [facility] Left: Chest [employer] [facility] 09/19/2025 [id number] / / [id number] Extension Dbs 60cm Sensight Marker - [id number] Implanted:Qty: 1 on 04/23/2024 by George Reddy MD, PhD at [facility] Left: Chest [employer] [facility] 02/28/2026 [id number] M / [id number] / Neurostimulator Deep Brain Rechargeable Implantable Percept Rc - [id number] Implanted:Qty: 1 on 04/23/2024 by George Reddy MD, PhD at [facility] Right: Chest [employer] [facility] 02/04/2026 [id number] / [id number] / [place] [address] [place] [address] [employer] MEDICARE REPLACEMENT Member Subscriber Plan / Payer (Ef fective 2018-Present) Name:Cicikirt Deja Relation to Subscriber:Self Name:Deja Sharma Payer ID:[id number] (NAIC) Group ID:[id number] Type:Medicare [address] [facility] MEDICARE PART A & B [facility] CARE MEDICARE REPLACEMENT MIGUEL THOMSON [facility] MEDICARE PART A & B [facility] CARE MEDICARE REPLACEMENT MIGUEL THOMSON [facility] MEDICARE PART A & B [facility] CARE MEDICARE REPLACEMENT MEDICARE PART A & [place] [address] MEDICARE PART A & B CARE MEDICARE REPLACEMENT MEDICARE PART A & B Advance Directives For more information, please contact: [phone] (9AM - 5PM [facility], Tuesday-Tuesday) * Full Code (Latest Code Status on File) Date Activated Date Inactivated Comments 10/13/2023 4:05 AM Question Answer Comments Code Status Confirmed With: Patient Code Status Communicated To: Inpatient Attending Care Teams Service Advocate Contact Relationship Specialty Start Date End Date Duyen Gutierrez NP [address] [place] [address] PCP - General Nurse Practitioner 09/23/23 Additional Source Comments The information contained in this document represents components of the legal health record. It is not the complete legal health record.[facility]
== END 2025-07-12 12:50 | disposition home or self-care (01) ==
LOC: HO.HOS 11:55
PROVIDERS: Visit Provider Physical Medicine & Rehabilitation
DX: M25.852 Other specified joint disorders, left hip (principal); S73.192A Other sprain of left hip, initial encounter; G20.A1 Parkinson's disease without dyskinesia, without mention of fluctuations
CPT/HCPCS: 99213

== ENCOUNTER → 2025-07-12 11:54 | Outpatient (BNVA) | payer OTHER, SELFPAY | PROVIDERS: Visit Provider Physical Medicine & Rehabilitation | DX: Z71.2 Person consulting for explanation of examination or test findings (principal); M25.552 Pain in left hip; M25.852 Other specified joint disorders, left hip; S73.192A Other sprain of left hip, initial encounter; G20.A1 Parkinson's disease without dyskinesia, without mention of fluctuations | CPT/HCPCS: 99212 ==